=== PATIENT | male | born 1950 | race Caucasian/White ===

== ENCOUNTER 2019-02-07 15:12 | Outpatient (CLI) | payer MEDICARE, MEDICAID, SELFPAY ==
--- NOTE | 2019-02-07 15:44 | ECG_ITS ---
Measurements Intervals [place] Rate: 68 P: 35 IA: 134 QRS: 39 QRSD: 88 T: 46 QT: 411 QTc: 438 SINUS RHYTHM Compared to ECG 01/10/2019 13:47:10 No significant changes Electronically Signed On 02-07-2019 17:10:32 WELDING EQUIPMENT REPAIRER by Blanca Motley M.D. [id number]
[2019-02-07 16:09] LABS: Basophils % 0.3 %; Eosinophils # 0.1 10^3/uL (0.0-0.8); Hematocrit 40.9 % (42.0-52.0); Hemoglobin 12.9 g/dL (11.7-16.6); Lymphocytes % 33.2 %; Mean Corpuscular HGB Conc 31.5 g/dL (30.0-36.0); Mean Corpuscular Hemoglobin 28.7 pg (28.0-34.0); Mean Corpuscular Volume 90.9 fL (80-94); Mean Platelet Volume 9.5 fL (7.4-10.4); Monocytes # 0.6 10^3/uL (0.2-0.9); Monocytes % 9.9 %; Neutrophils # 3.3 10^3/uL (1.8-7.7); Neutrophils % 55.1 %; Nucleated Red Blood Cells % 0 %; Platelet Count 161 10^3/cmm (130-400); Red Cell Distribution Width 13.7 % (12.1-15.1); White Blood Count 5.9 10^3/uL (4.0-10.0)
[2019-02-07 16:52] LABS: Anion Gap 12.8 (5-19); Blood Urea Nitrogen 13 mg/dL (8-23); Calcium 9.6 mg/Dl (8.8-10.2); Carbon Dioxide 28 mmol/L (22-29); Chloride 101 mmol/L (98-107); Glomerular Filtration Rate 50.2 mL/min (90-130); Glucose 106 mg/dL (74-106); Potassium 4.8 mmol/L (3.5-5.1); Sodium 137 mmol/L (136-145)
== END 2019-02-07 15:13 | disposition home or self-care (01) ==
LOC: RAD 15:19
PROVIDERS: Family Provider Family Medicine; PCP Family Medicine; Visit Provider Specialist
DX: Z01.810 Encounter for preprocedural cardiovascular examination (principal); Z01.812 Encounter for preprocedural laboratory examination
CPT/HCPCS: 36415; 80048; 85025; 93005

== ENCOUNTER 2019-02-16 19:20 | Emergency (ER) | payer MEDICARE, MEDICAID, SELFPAY ==
[2019-02-16 19:25] VITALS: BP 149/75; PULSE 74; RESP 18; TEMP 36.6; O2SAT 97; BMI 32.8
[2019-02-16 19:49] VITALS: BP 163/86; PULSE 68; RESP 21; O2SAT 97
--- NOTE | 2019-02-16 19:53 | ED_ITS ---
Entered by Leigh Ann Khan, acting as scribe for Efrem Ibarra DO HPI - Chest Pain General: Chief Complaint: Chest Pain Stated Complaint: chest pains Time Seen by Provider: 02/16/19 19:55 Source: patient Mode of arrival: ambulatory History of Present Illness: HPI narrative: 69 y/o male presents to the ED with complaint of chest pain. Pt states he had a similar episode 2 days ago (Monday) while he was driving back from [place]. The pain subsided to a mild pain but then returned stronger today. He has had nausea and diarrhea. Pt states he recently had a carotid stent placed, in [facility]. MD complaint: chest pain Pertinent past history: other (CHF) Onset (ago): day(s) Timing of current episode: constant Prior episodes: Yes Onset: during exertion (mild) Associated symptoms: Reports nausea; Deny abdominal pain, fever(s), palpitations or vomiting Review of Systems Const: Denies: fever or chills Eyes: Denies: change in vision or blurry vision ENMT: Denies: painful swallowing, swelling of lips/tongue, bleeding gums, dental pain, Change in hearing, nose bleeds, post nasal drip or facial/sinus pain Card: Reports: chest pain, edema and swelling of feet/ankles (+1); Denies: palpitations or irregular heart rhythm Resp: Denies: productive cough, non-productive cough or wheezing GI: Reports: nausea and diarrhea; Denies: abdominal pain, vomiting, rectal pain, blood in stool or black tarry stool : Denies: difficulty urinating, painful urination, urinary frequency, urinary urgency or blood in urine Musc: Reports: extremity swelling (LE edema +1); Denies: neck pain, back pain, redness or joint warmth Skin/Breast: Denies: rash, itching or redness Neuro: Denies: headache, dizziness, vertigo, confusion or seizure-like activity Psych: Denies: anxiety, visual hallucinations or auditory hallucinations PFSH ED PFSH: Statuses (acute, chronic, etc) shown below reflect problem list status as previously entered and may not be historically accurate Medical History (Updated 02/16/19 @ 23:27 by Efrem Ibarra DO) Carotid stenosis, bilateral (Acute) Postop carotid endarterectomy surveillance, encounter for (Acute) Social History Smoking and tobacco status: former smoker Physical Exam Const: COMMON NORMALS: alert GENERAL APPEARANCE: well developed ORIENTATION/CONSCIOUSNESS: Yes awake, Yes oriented to person, Yes oriented to place and Yes oriented to time HENMT: COMMON NORMALS: normocephalic, external ears normal, external nose nor mal and moist oral mucous membranes HEAD & SCALP: normocephalic; no scalp tenderness FACE & SINUS: normal facial exam NOSE: external nose normal and no nasal discharge EXTERNAL EAR: Yes external ears normal MOUTH: tongue normal TEETH & GINGIVA: no abnormal tooth and associated gingiva THROAT: posterior oropharynx normal; no peritonsillar mass Eye: COMMON NORMALS: PERRL, EOMs intact bilaterally and conjunctivae normal EYELID: eyelids normal CONJUNCTIVA: Yes conjunctivae normal PUPIL: Yes PERRL Neck/C-Spine: COMMON NORMALS: full ROM GENERAL: No tracheal deviation CERVICAL SPINE: Yes normal cervical lordosis, No cervical spine tenderness, No step off deformity, No paracervical muscle tenderness and No paracervical muscle spasm Chest: CHEST: Yes symmetrical chest wall rise and Yes tenderness (epigastric) Resp: COMMON NORMALS: clear to auscultation bilaterally EFFORT & INSPECTION: No tachypneic, No respiratory distress, No retractions, No uses accessory muscles and No tracheal deviation AUSCULTATION: clear to auscultation bilaterally, no rhonchi, no wheezes and lung sounds not diminished Cardio: COMMON NORMALS: regular rate and regular rhythm RATE: regular rate RHYTHM: regular rhythm HEART SOUNDS: no murmurs PERIPHERAL PULSES: radial pulses present GI: INSPECTION: No abdominal distension AUSCULTATION: No hyperactive bowel sounds and No hypoactive bowel sounds PALPATION: No tender, No guarding and No rigid PERCUSSION: no dullness to percussion and no tympanic to percussion : COMMON NORMALS: Yes no CVA tenderness BLADDER/KIDNEY EXAM: Yes no CVA tenderness Back/Pelvis: COMMON NORMALS: no CVA tenderness PELVIS: Yes no pain with anterior-posterior compression and Yes no pain with lateral compression Extremity: LEFT LOWER EXTREMITY: Yes lower leg (1+ edema ) Neuro: SENSORIUM/ORIENTATION: Yes alert, Yes oriented to person, Yes oriented to place and Yes oriented to time Psych: COMMON NORMALS: mental status grossly normal and speech normal SPEECH: Yes normal speech Skin: COMMON NORMALS: no rashes or lesions noted GENERAL SKIN EXAM: no rashes or lesions noted Course ED course: 69-year-old male here frequently for similar complaints. His chest pain improved with GI cocktail. His EKG did not show acute ST changes x2 sets. His troponin did not change. His other laboratory was benign. With improvement in his symptoms, somewhat reproducibility of his pain on palpation of epigastrium, I am inclined to let him be discharged. Vital Signs: Vital signs: Vital Signs Temperature 97.9 F 02/16/19 19:25 Pulse Rate 87 02/16/19 23:54 Respiratory Rate 18 02/16/19 23:54 Blood Pressure 149/99 02/16/19 23:54 Pulse Oximetry 96 02/16/19 23:54 MDM - Chest Pain Lab Data: Labs: Lab Results 02/16/19 02/16/19 02/16/19 Range/Units 20:04 20:04 20:04 WBC 4.9 (4.0-10.0) 10^3/ uL RBC 4.17 (4.1-5.3) 10^6/u L Hgb 11.5 L (11.7-16.6) g/dL Hct 36.6 L (42.0-52.0) % MCV 87.8 (80-94) fL MCH 27.6 L (28.0-34.0) pg MCHC 31.4 (30.0-36.0) g/dL RDW 13.7 (12.1-15.1) % Plt Count 137 (130-400) 10^3/c mm MPV 9.4 (7.4-10.4) fL Neut % (Auto) 51.8 % Lymph % (Auto) 34.7 % [place] % (Auto) 11.9 % Eos % (Auto) 1.2 % Baso % (Auto) 0.2 % Neut # (Auto) 2.5 (1.8-7.7) 10^3/u L Lymph # (Auto) 1.7 (0.8-4.8) 10^3/u L [place] # (Auto) 0.6 (0.2-0.9) 10^3/u L Eos # (Auto) 0.1 (0.0-0.8) 10^3/u L Baso # (Auto) 0.0 (0.0-0.1) 10^3/u L Nucleated RBC % (a uto) 0 % Nucleated RBCs # 0.0 /100WBC Sodium 138 (136-145) mmol/L Potassium 3.8 (3.5-5.1) mmol/L Chloride 101 (98-107) mmol/L Carbon Dioxide 28 (22-29) mmol/L Anion Gap 12.8 (5-19) BUN 11 (8-23) mg/dL Creatinine 1.0 (0.7-1.2) mg/dL GFR Calculation 73.9 L (90-130) mL/min Glucose 116 H (74-106) mg/dL Calcium 8.9 (8.8-10.2) mg/Dl Total Bilirubin 1.7 H (0.15-1.2) mg/dL AST 16 (0-40) U/L ALT 7 (0-41) U/L Alkaline Phosphata se 69 (40-130) IU/L Troponin T Baselin e 9 (0-15) ng/mL Troponin T 120 Min [place] (0-15) ng/mL Delta Troponin T (0-10) ABS# NT-Pro-B Natriuret Pep 275 H (0-125) pg/mL Total Protein 6.5 L (6.6-8.7) g/dL Albumin 3.5 (3.5-5.2) g/dL Globulin 3.0 (1.3-4.6) g/dL 02/16/19 Range/Units 22:20 WBC (4.0-10.0) 10^3/ uL RBC (4.1-5.3) 10^6/u L Hgb (11.7-16.6) g/dL Hct (42.0-52.0) % MCV (80-94) fL MCH (28.0-34.0) pg MCHC (30.0-36.0) g/dL RDW (12.1-15.1) % Plt Count (130-400) 10^3/c mm MPV (7.4-10.4) fL Neut % (Auto) % Lymph % (Auto) % [place] % (Auto) % Eos % (Auto) % Baso % (Auto) % Neut # (Auto) (1.8-7.7) 10^3/u L Lymph # (Auto) (0.8-4.8) 10^3/u L [place] # (Auto) (0.2-0.9) 10^3/u L Eos # (Auto) (0.0-0.8) 10^3/u L Baso # (Auto) (0.0-0.1) 10^3/u L Nucleated RBC % (a uto) % Nucleated RBCs # /100WBC Sodium (136-145) mmol/L Potassium (3.5-5.1) mmol/L Chloride (98-107) mmol/L Carbon Dioxide (22-29) mmol/L Anion Gap (5-19) BUN (8-23) mg/dL Creatinine (0.7-1.2) mg/dL GFR Calculation (90-130) mL/min Glucose (74-106) mg/dL Calcium (8.8-10.2) mg/Dl Total Bilirubin (0.15-1.2) mg/dL AST (0-40) U/L ALT (0-41) U/L Alkaline Phosphata se (40-130) IU/L Troponin T Baselin e (0-15) ng/mL Troponin T 120 Min [place] 9.37 (0-15) ng/mL Delta Troponin T 0.37 (0-10) ABS# NT-Pro-B Natriuret Pep (0-125) pg/mL Total Protein (6.6-8.7) g/dL Albumin (3.5-5.2) g/dL Globulin (1.3-4.6) g/dL Discharge Plan Discharge Patient Disposition: Home, Self-Care Clinical Impression: Chest pain Qualifiers: Chest pain type: unspecified Qualified Code(s): R07.9 - Chest pain, unspecified Hypertension Qualifiers: Hypertension type: essential hypertension Qualified Code(s): I10 - Essential (primary) hypertension Condition: Stable Prescriptions: No Action tizanidine 4 mg capsule 4 mg PO Q8H RF: 0 buspirone 10 mg tablet 10 mg PO BID RF: 0 Eliquis 5 mg tablet 5 mg PO BID RF: 0 levothyroxine 100 mcg capsule 100 mcg PO DAILY RF: 0 tamsulosin 0.4 mg capsule 0.4 mg PO DAILY RF: 0 omeprazole 40 mg capsule,delayed release(DR/EC) 40 mg PO DAILY RF: 0 hydrocodone-acetaminophen 5-325 mg tablet 1 tab PO Q6H PRN (Reason: pain) RF: 0 Discharge Orders: Discharge Order (Routine); Ordered 02/16/19 Ordered By: Efrem Ibarra Referrals: Nelida Houser DO [Primary Care Provider] - Discharge Diet: Cardiac Discharge Activity: Increase activity as tolerated Patient Instructions: Chest Pain (ED) Activity Restrictions/Additional Instructions: Return for worsening chest pain. Take your blood pressure twice daily and report numbers to your physician next week. Return also for fever greater than 100, worsening shortness of breath, other concerning symptoms Discharge Date/Time: 02/16/19 23:56 Coding Level of Care Code ED Hand Mica Plate Layer for Chg Fwd The documentation recorded by the Bill holliday Ashley, accurately reflects the service I personally performed and the decisions made by Fred natarajan Jeremy John, DO Feb 16, 2019 19:20
--- NOTE | 2019-02-16 19:57 | XRR_ITS ---
PROCEDURE INFORMATION: Exam: XR Chest, 1 View Exam date and time: 02/16/2019 8:18 PM Age: 69 years old Clinical indication: Chest pain; Type not specified; Prior surgery; Surgery date: 6+ months; Surgery type: Stents TECHNIQUE: Imaging protocol: XR of the chest Views: 1 view. COMPARISON: CR Chest 1 [place] [id number] 01/10/2019 11:41 AM FINDINGS: Lungs: Unremarkable. No consolidation. Pleural space: Unremarkable. No pleural effusion. No pneumothorax. Heart/Mediastinum: There is cardiomegaly. Bones/joints: Unremarkable. XR/XR chest 1V portable [id number] IMPRESSION: No acute findings. Unchanged exam.
--- NOTE | 2019-02-16 19:58 | ECG_ITS ---
Measurements Intervals [place] Rate: 74 P: 34 SD: 130 QRS: 35 QRSD: 87 T: 55 QT: 397 QTc: 441 SINUS RHYTHM Compared to ECG 02/07/2019 15:40:57 No significant changes Electronically Signed On 02-17-2019 19:12:38 KETTLEMAN by Roxanna Temple M.D. [id number]
[2019-02-16] MEDS: aspirin 325 mg Tablet PO (20:06)
[2019-02-16 20:21] LABS: Basophils % 0.2 %; Eosinophils # 0.1 10^3/uL (0.0-0.8); Eosinophils % 1.2 %; Hematocrit 36.6 % (42.0-52.0); Hemoglobin 11.5 g/dL (11.7-16.6); Lymphocytes # 1.7 10^3/uL (0.8-4.8); Lymphocytes % 34.7 %; Mean Corpuscular HGB Conc 31.4 g/dL (30.0-36.0); Mean Corpuscular Hemoglobin 27.6 pg (28.0-34.0); Mean Corpuscular Volume 87.8 fL (80-94); Mean Platelet Volume 9.4 fL (7.4-10.4); Monocytes # 0.6 10^3/uL (0.2-0.9); Monocytes % 11.9 %; Neutrophils # 2.5 10^3/uL (1.8-7.7); Neutrophils % 51.8 %; Nucleated Red Blood Cells % 0 %; Platelet Count 137 10^3/cmm (130-400); Red Blood Count 4.17 10^6/uL (4.1-5.3); Red Cell Distribution Width 13.7 % (12.1-15.1); White Blood Count 4.9 10^3/uL (4.0-10.0)
[2019-02-16 20:48] LABS: Troponin(5th) Baseline 9 ng/mL (0-15)
[2019-02-16 20:55] LABS: Alanine Aminotransferase 7 U/L (0-41); Albumin Level 3.5 g/dL (3.5-5.2); Alkaline Phosphatase 69 IU/L (40-130); Anion Gap 12.8 (5-19); Aspartate Amino Transferase 16 U/L (0-40); Blood Urea Nitrogen 11 mg/dL (8-23); Calcium 8.9 mg/Dl (8.8-10.2); Carbon Dioxide 28 mmol/L (22-29); Chloride 101 mmol/L (98-107); Glomerular Filtration Rate 73.9 mL/min (90-130); Glucose 116 mg/dL (74-106); NT Pro B Type Natriuretic Pept 275 pg/mL (0-125); Potassium 3.8 mmol/L (3.5-5.1); Sodium 138 mmol/L (136-145); Total Bilirubin 1.7 mg/dL (0.15-1.2); Total Protein 6.5 g/dL (6.6-8.7)
[2019-02-16 21:04] VITALS: BP 198/81; PULSE 58; RESP 19; O2SAT 98
[2019-02-16] MEDS: hyDRALAzine 20 mg/mL INJ 1 mL 10 MG IVP (21:42)
[2019-02-16] MEDS: LORazepam 2 mg/mL INJ 1 mL 1 MG IVP (21:42)
[2019-02-16] MEDS: amlodipine 10 mg Tablet PO (21:42)
--- NOTE | 2019-02-16 21:58 | ECG_ITS ---
Measurements Intervals [place] Rate: 74 P: 44 [place]: 131 QRS: 48 QRSD: 93 T: 61 QT: 403 QTc: 449 SINUS RHYTHM Compared to ECG 02/07/2019 15:40:57 No significant changes Electronically Signed On 02-17-2019 19:21:25 OPERATOR WE[employer] LOCATING RADAR by Roxanna Temple M.D. [id number]
[2019-02-16 22:53] LABS: Troponin 5 2HR 9.37 ng/mL (0-15); Troponin 5 2HR Delta 0.37 ABS# (0-10)
[2019-02-16 22:57] VITALS: BP 165/95; PULSE 79; RESP 17; O2SAT 98
[2019-02-16 23:54] VITALS: BP 149/99; PULSE 87; RESP 18; O2SAT 96
== END 2019-02-16 23:56 | disposition home or self-care (01) ==
PROVIDERS: Emergency Provider Emergency Medicine; Family Provider Family Medicine; PCP Family Medicine
DX: R07.9 Chest pain, unspecified (principal); I10 Essential (primary) hypertension; Z87.891 Personal history of nicotine dependence
CPT/HCPCS: 71045; 80053; 83880; 84484; 85025; 93005; 96374; 96375; 99282; J0360; J2060

== ENCOUNTER 2019-02-19 13:32 | Observation (INO) | payer MEDICARE, MEDICAID, SELFPAY ==
[2019-02-18 13:33] VITALS: BMI 32.8
[2019-02-19] VITALS (29 sets, daily range): BP systolic 113–220; BP diastolic 48–97; PULSE 58–102; RESP 15–26; TEMP 36.2–36.7; O2SAT 94–100
[2019-02-19] MEDS: sodium chloride 0.9% 1,000 ML 30 ML IV (07:18)
--- NOTE | 2019-02-19 07:33 | ANES.PREANES ---
Pre-Anesthetic Assessment Pre-Anesthetic Assessment: Height/Weight: Height 1.7 m Weight 95.254 kg Temp Pulse Resp BP Pulse Ox 97.2 F L 68 18 181/86 97 02/19/19 07:01 02/19/19 07:01 02/19/19 07:01 02/19/19 07:01 02/19/19 07:01 Preop Diagnosis: Hoarseness Proposed Procedure: Operation Date: 02/19/19 08:00 Proposed Procedures p Direct Laryngoscopy/with true vocal cord injection(Not Applicable) - John Jackson MD Familial anesthetic complications: With patient's last vocal cord injection, he exerienced post op SOB and requiring him to go back to surgery for further injections. he stayed over night.. 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 : : None reported Hepatic: Hepatic: None reported GI: GI: Hiatus hernia Metabolic: Metabolic: Thyroid Musc/skel: Musc/skel: None reported Neuropsych: Neuropsych: TIA Comments: TIA last one > 1 year ago Anesthetic Plan: ASA status: III Anesthesia: General Risk of > 500 ml blood loss (7ml/kg in children): No Meds/Allergies Current Medications: Current Medications Generic Name Dose Route Start Last Admin Trade Name Freq PRN Reason Stop Dose Admin Sodium Chloride 1,000 mls @ 30 ml s/hr 02/19/19 07:00 02/19/19 07:18 Sodium Chloride 0.9% IV 02/20/19 06:59 30 mls/hr .Q24H CHAYO Administration PFSH Anesthesia PFSH: Medical History (Updated 02/16/19 @ 23:27 by Efrem Ibarra DO) Carotid stenosis, bilateral (Acute) Postop carotid endarterectomy surveillance, encounter for (Acute) Social History Smoking and tobacco status: former smoker Data Anesthesia Cardiac Studies: No Data to Display
--- NOTE | 2019-02-19 08:44 | PM.HPUD ---
H&P update H&P Update: DATE OF SURGERY/PROCEDURE: 02/19/19 DATE H&P PERFORMED: 02/07/19 H&P UPDATE INFORMATION: H&P completed within last 30 days and No changes to prior documentation PREOP DIAGNOSIS: Left true vocal cord paralysis; hoarseness PRIMARY INDICATION FOR PROCEDURE: Hoarseness secondary to left true vocal cord paralysis PLANNED PROCEDURE: Operation Date: 02/19/19 08:00 Proposed Procedures p Direct Laryngoscopy/with true vocal cord injection(Not Applicable) - John Jackson MD Full H&P Medications/Allergies: Current Medications: Current Medications Generic Name Dose Route Start Last Admin Trade Name Freq PRN Reason Stop Dose Admin Sodium Chloride 1,000 mls @ 30 ml s/hr 02/19/19 07:00 02/19/19 07:18 Sodium Chloride 0.9% IV 02/20/19 06:59 30 mls/hr .Q24H CHAYO Administration Perinent History: Medical/Surgical History: Medical History (Updated 02/16/19 @ 23:27 by Efrem Ibarra DO) Carotid stenosis, bilateral (Acute) Postop carotid endarterectomy surveillance, encounter for (Acute) Family History: Family History (Updated 02/11/19 @ 13:27 by Caryn Walker LPN) Other CAD (coronary artery disease) Cancer Diabetes Social History: Social History Smoking and tobacco status: former smoker
[2019-02-19] MEDS: triamcinolone 40 mg/mL SDV IM (10:11)
--- NOTE | 2019-02-19 10:41 | PM.OP ---
Operative Report Date of procedure: 02/19/19 Preop Diagnosis: Left true vocal paralysis with hoarseness Post-op diagnosis: same Post-op Findings: Same Procedure Done: Microdirect Laryngoscompy with injection laryngoplasty of left true vocal cord Implants: Prolaryn Hydroxyappatite injectable implant Specimens removed/disposition: None Pathology: none sent Surgeon: John Jackson Certified Medical Records Coder: Sarbjit Meyer Anesthesia: general Estimated blood loss (mL): 1 IV fluids (mL): 500 Complications: Post op stridor Findings: Left true vocal cord paralysis Condition: stable Brief History: 69 yo wmwith a h/o left true vocal cord paralysis and hoarseness who desires repeat injection laryngoplasty Procedure: The patient was identified in the preoperative holding area and was taken to the operating room where he was placed on the operating table in the supine position. Anesthesia was obtained with general endotracheal anesthesia and the table turned 90 degrees to the patient's left. The patient was then prepped and draped in the usual sterile fashion. A moist Ray-Joe was placed on the patient's maxillary gingiva and a surgical laryngoscope was advanced down the right oral cavity gutter under direct vision until the larynx came into view. The patient was placed on suspension and the 0 degree Hutchinson paige surgical telescope with the attached video camera system was used to inspect the larynx with the findings noted above. At this point the Prolaryn hydroxyapatite injectable implant was injected into the vocalis muscle lateral to the vocal process of the arytenoid on the left. A total of 0.5 mL's of the injectable implant was injected into the vocalis muscle. At this point, the endotracheal tube was removed and was replaced with an 8.5 endotracheal tube. 5 minutes were allowed to pass, and the endotracheal tube was partially removed and the balloon was inflated at the level of the vocal cords. At this point, the endotracheal tube was reinserted, and the patient underwent a reversal of anesthesia and was extubated. The patient developed inspiratory stridor, and was then reintubated with an 8 oh tube. The larynx was reinspected and he easily admitted an 8-0 endotracheal tube. At this point the patient's anesthesia was reversed, and he was extubated and had no stridor on extubation. He was taken to the recovery room in stable condition and there were no operative or anesthetic complications.
[2019-02-19] MEDS: midazolam 1 mg/mL INJ 2 mL IVP (10:52)
--- NOTE | 2019-02-19 12:27 | SUR.PHASEI ---
1033 PT TO PACU AWAKE ALERT UP IN SITTING POSTITION, PT RESP SHALLOW RAPID, PT NODS HEAD YES TO QUESTIONS (IS IT HARD TO BREATHE?) (DO YOU FEEL WEAK?) PT HAS SOME AUDIBLE INSP STRIDOR NOTED DR CANTRELL AND MECHANICAL INTEGRITY ENGINEER WILL AT BEDSIDE PT BP ELEVATED , PT ANXIOUS, SEE IV LABETOLOL GIVE AT BEDSIDE BY MECHANICAL INTEGRITY ENGINEER FOR ELEVATED BP. 1040 PT REMAINS WEAK BIPAP PLACEDON PT WITH RESP HERE TO TITRATE O2 AND SETTINGS. 1052 PT ANXIOUS BP IS BETTER BUT PT STILL HAVING STRIDOR WITH INSPIRATION SEE VERSED GIVEN ORDERED. 1100 DR CUNNINGHAM AT BEDSIDE PT RESP EVENA AND UNLABORED ON BI PAP NOW PT SLEEPING, PT TO GO TO ICU NOT THE FLOOR [id number] DUMONT CALLED AND UPDATED PT STILL ON BIPAP BUT ORDER FOR STATUS NEEDED VERBAL ORDER TAKEN PER PHONEL 1143 PT ALERT REQUESTS SOMEHTING TO DRINK, PT ON RA TRIAL, NO DISTRESS NOW OR STRIDOR PT TAKING SMALL ICE CHIPS SLOWLY, FAMILY UPDATED THEY ARE NOW IN WR, THE HAD WENT HOME RUSSELL. 1151 PT NOW IN HOLDING WAITING FOR ICU BED. 1215 PT ALERT USING PAPER AND PEN PT IS ON VOICE REST, PT TO OPS 12 FOR HOLDING FAMILY IN TO ROOM TO SEE PT
--- NOTE | 2019-02-19 12:43 | SUR.PHASEI ---
PT IS ALERT STABLE IN NO OBVIOUS DISTRESS PT TAKING ICE CHIPS AND WATCHING TV, DR DUMONT'S OFFICE CALLED AND NURSE NOTIFIED DR DUMONT OF PT CONDITION AND ASKED IF HE STILL WANTED PT TO GO TO ICU, DR DUMONT'S PHONE RESPONSE TO THE OFFICE NURSE WAS YES. PT STILL IN HOLDING WAITING FOR BED.
--- NOTE | 2019-02-19 13:46 | SUR.PHASEI ---
1324 PT AWAKE ALERT EATING DAMONO, PT AND FAMILY TO ICU 11 PT ALERT WALKED TO BED WITH NO C/O
[2019-02-19] MEDS: tizanidine 4 mg Tablet PO ×2 (14:35→21:58)
[2019-02-19] MEDS: lactated ringers 1,000 ML 125 ML IV ×2 (14:35→23:06)
--- NOTE | 2019-02-19 14:44 | PM.PACU ---
PACU note PACU note: Patient stridorous in pacu, difficulty breathing. Placed on bipap. improved and satting well with no supplement O2 or respiratory distress when brought to ICU Post-Anesthesia Exam: awake and vital signs stable Disposition: other (TO ICU)
[2019-02-19] MEDS: docusate sodium 100 mg Capsule PO (18:04)
[2019-02-19] MEDS: apixaban 5 mg Tablet PO (18:04)
[2019-02-19] MEDS: BuSPIRONE 10 mg Tablet PO (18:04)
--- NOTE | 2019-02-19 21:19 | PM.PN ---
Subjective Subjective: Interval history: 69 yo wm who is night of surgery s/p Microdirect laryngoscopy with injection laryngoplasty of left true vocal cord for left true vocal cord paralysis and hoarseness. The patient's post op course was complicated by post operative stridor. The patient was transferred to the ICU on BiPap which has subsequently been discontinued. The patient reports that he is doing well, and has no shortness of breath or stridor. He has been able to take po liquids well. He is o/w without c/o. Vitals/I&O/Wt Last Vital Signs Temp 97.8 F 02/19/19 20:00 Pulse 65 02/19/19 20:40 Resp 18 02/19/19 20:00 BP 128/61 02/19/19 20:00 Pulse Ox 99 02/19/19 20:46 02/19/19 02/19/19 02/19/19 06:59 14:59 22:59 Intake Total 50 / 50 480 / 530 Output Total 301 / 301 400 / 701 Balance -251 / -251 80 / -171 Weight last 48 hrs Weight 95.254 kg Physical Exam Const: COMMON NORMALS: no apparent distress and oriented x3 GENERAL APPEARANCE: cooperative and comfortable HENMT: COMMON NORMALS: normocephalic, head/scalp atraumatic and external nose normal HEAD & SCALP: normocephalic and atraumatic FACE & SINUS: normal facial exam NOSE: external nose normal Eye: COMMON NORMALS: conjunctivae normal CONJUNCTIVA: Yes conjunctivae normal Neck/C-Spine: COMMON NORMALS: full ROM, no lymphadenopathy and thyroid normal GENERAL: Yes normal visual inspection and Yes trachea midline THYROID: thyroid normal Lymph: LYMPHATIC: no lymphadenopathy noted Chest: COMMONS NORMALS: inspection of chest normal and palpation of chest normal Resp: COMMON NORMALS: normal respiratory effort and clear to auscultation bilaterally AUSCULTATION: clear to auscultation bilaterally Cardio: COMMON NORMALS: regular rate and regular rhythm RATE: regular rate RHYTHM: regular rhythm GI: COMMON NORMALS: normal to inspection, nondistended, normoactive bowel sounds Extremity: COMMON NORMALS: normal to inspection Neuro: COMMON NORMALS: oriented x3 and moves all extremities Psych: COMMON NORMALS: mental status grossly normal Skin: COMMON NORMALS: no rashes or lesions noted GENERAL SKIN EXAM: no rashes or lesions noted A&P Additional A&P Information Impression: 69 yo wm with a h/o left true vocal cord paralysis and severe hoarseness who is night of surgery s/p Microdirect laryngoscopy with injection laryngoplasty of left true vocal cord. Who is now doing well. His immediate post op course was complicated by inspiratory stridor, but this has since resolved. Plan: ICU observation overnight Advance to regular diet Anticipate discharge in the morning Attestations Medical Necessity Statement*: The patient required overnight observation of his airway Coding Level of Care Code Acute Real Estate Sales Supervisor for Carl Sanz
[2019-02-19] MEDS: HYDROcodone-acetaminophen 5-325 mg Tablet 1 TAB PO (22:57)
[2019-02-20] VITALS: BP 153/62; PULSE 66; RESP 18; O2SAT 96
[2019-02-20 02:00] VITALS: BP 128/56; PULSE 71; RESP 21; O2SAT 97
[2019-02-20 04:00] VITALS: BP 137/63; PULSE 59; RESP 24; O2SAT 97
[2019-02-20] MEDS: HYDROcodone-acetaminophen 5-325 mg Tablet 1 TAB PO (05:25)
[2019-02-20] MEDS: tizanidine 4 mg Tablet PO (05:25)
--- NOTE | 2019-02-20 05:39 | P.PN_ITS ---
Subjective Subjective: Interval history: 69 yo wm with a h/o left true vocal paralysis who is POD #1 s/p Microdirect Laryngoscopy with left true vocal cord injection laryngoplasty. The patient's post op course was complicated by post op stridor. He was observed overnight in the ICU and is now doing well. He reports that he is taking po well, and denies any noted shortness of breath. Vitals/I&O/Wt Last Vital Signs Temp 97.8 F 02/19/19 20:00 Pulse 59 L 02/20/19 04:00 Resp 24 H 02/20/19 04:00 BP 137/63 02/20/19 04:00 Pulse Ox 97 02/20/19 04:00 02/19/19 02/19/19 02/20/19 14:59 22:59 06:59 Intake Total 50 / 50 480 / 530 1000 / 1530 Output Total 301 / 301 400 / 701 200 / 901 Balance -251 / -251 80 / -171 800 / 629 Weight last 48 hrs Weight 95.254 kg Physical Exam Const: COMMON NORMALS: no apparent distress, oriented x3 and well nourished GENERAL APPEARANCE: cooperative and well developed ORIENTATION/CONSCIOUSNESS: Yes oriented to person, Yes oriented to place and Yes oriented to time HENMT: COMMON NORMALS: normocephalic, head/scalp atraumatic, external ears normal and external nose normal HEAD & SCALP: normocephalic and atraumatic FACE & SINUS: normal facial exam and face symmetric NOSE: external nose normal EXTERNAL EAR: Yes external ears normal Eye: COMMON NORMALS: conjunctivae normal CONJUNCTIVA: Yes conjunctivae normal Neck/C-Spine: COMMON NORMALS: no lymphadenopathy Lymph: LYMPHATIC: no lymphadenopathy noted Chest: COMMONS NORMALS: inspection of chest normal and palpation of chest normal Resp: COMMON NORMALS: clear to auscultation bilaterally AUSCULTATION: clear to auscultation bilaterally Cardio: COMMON NORMALS: regular rate and regular rhythm RATE: regular rate RHYTHM: regular rhythm GI: COMMON NORMALS: normal to inspection, nondistended, normoactive bowel sounds Extremity: COMMON NORMALS: normal to inspection Neuro: COMMON NORMALS: oriented x3 and moves all extremities SENSORIUM/ORIENTATION: Yes oriented to person, Yes oriented to place and Yes oriented to time Psych: COMMON NORMALS: mental status grossly normal Skin: COMMON NORMALS: no rashes or lesions noted and skin turgor normal GENERAL SKIN EXAM: no rashes or lesions noted and turgor normal A&P Assessment and plan (1) Vocal cord paralysis, unilateral complete: Now doing well s/p Microdirect laryngoscopy with injection laryngoplasty of the left true vocal cord Status: Acute Code(s): J38.01 - Paralysis of vocal cords and larynx, unilateral Additional A&P Information 1) The patient is to be discharged to home 2) Regular diet 3) Resume all preop medications 4) Voice rest x one week 5) F/U in Dr. Jackson's office in one week 6) Notify Dr. Jackson for any problems Attestations Medical Necessity Statement*: The patient was observed overnight in the ICU because of post op stidor/airway observation Coding Level of Care Code Acute Medical Territory Manager for Carl Fwd Exam Problem Focused Diagnoses Vocal cord paralysis, unilateral complete J38.01
[2019-02-20 06:00] VITALS: BP 117/56; PULSE 58; RESP 21; TEMP 36.6; O2SAT 97
[2019-02-20 07:57] VITALS: BP 104/44; PULSE 66; RESP 15; TEMP 36.6; O2SAT 98
[2019-02-20 08:01] VITALS: PULSE 65; RESP 15; TEMP 36.6; O2SAT 98
[2019-02-20] MEDS: pantoprazole DR 40 mg Tablet PO (08:39)
[2019-02-20] MEDS: apixaban 5 mg Tablet PO (08:40)
[2019-02-20] MEDS: BuSPIRONE 10 mg Tablet PO (08:40)
[2019-02-20] MEDS: tamsulosin 0.4 mg Capsule PO (08:40)
[2019-02-20] MEDS: levothyroxine 100 mcg Tablet PO (08:40)
--- NOTE | 2019-02-20 08:47 | PC.NURSE ---
Discharge instructions provided and discussed. Reiterated resting his voice Follow-up appts, signs/symptoms/concerns to janina Kurtz with, Medications already receive today discussed. No further questions. Pt awaiting arrival of family member with clothing..
--- NOTE | 2019-02-20 09:53 | PC.NURSE ---
Pt now sitting in ICU waiting room fro his ride. Pt has been discharged.
== END 2019-02-20 09:45 | disposition home or self-care (01) ==
LOC: ICU 13:33
PROVIDERS: Admitting Provider Specialist; Family Provider Family Medicine; PCP Family Medicine; Visit Provider Specialist
PROC: 0CJS8ZZ Inspection of Larynx, Via Natural or Artificial Opening Endoscopic (ICD-10-PCS; CPT 31571; principal; 2019-02-19 08:00)
DX: J38.01 Paralysis of vocal cords and larynx, unilateral (principal); R49.0 Dysphonia; Z82.49 Family history of ischemic heart disease and other diseases of the circulatory system; Z83.3 Family history of diabetes mellitus; I25.10 Atherosclerotic heart disease of native coronary artery without angina pectoris; I11.0 Hypertensive heart disease with heart failure; I50.9 Heart failure, unspecified; Z95.5 Presence of coronary angioplasty implant and graft; Z86.718 Personal history of other venous thrombosis and embolism; Z86.711 Personal history of pulmonary embolism; Z87.891 Personal history of nicotine dependence
CPT/HCPCS: 31571; 12345; 94660; 94664; 96361; 96372; G0378; J0330; J0690; J2250; J2704; J2710; J3010; J3301; J3490; J7030

== ENCOUNTER → 2019-02-28 11:09 | Outpatient (BNVA) | payer MEDICARE, MEDICAID, SELFPAY | PROVIDERS: Family Provider Family Medicine; PCP Family Medicine; Visit Provider Orthopaedic Surgery | DX: Z09 Encounter for follow-up examination after completed treatment for conditions other than malignant neoplasm (principal); Z96.652 Presence of left artificial knee joint | CPT/HCPCS: 73560; 73565 ==

== ENCOUNTER 2019-03-11 09:33 | Outpatient (RCR) | payer MEDICARE, MEDICAID, SELFPAY | END 2019-04-06 23:59 | disposition home or self-care (01) | LOC: SST 09:33 | PROVIDERS: Family Provider Family Medicine; PCP Family Medicine; Referring Provider Specialist; Visit Provider Specialist | DX: J38.01 Paralysis of vocal cords and larynx, unilateral (principal); R49.8 Other voice and resonance disorders | CPT/HCPCS: 92507; 92524 ==

== ENCOUNTER 2019-03-24 18:02 | Emergency (ER) | payer MEDICARE, MEDICAID, SELFPAY ==
[2019-03-24 18:10] VITALS: BP 181/77; PULSE 82; RESP 16; TEMP 36.4; O2SAT 98; BMI 33.0
--- NOTE | 2019-03-24 18:27 | ED_ITS ---
Entered by Velia Curry, acting as scribe for Leo Velazquez MD, [facility] Mar 24, 2019 18:02 HPI - Chest Pain General: Chief Complaint: Chest Pain Stated Complaint: l facial numb Time Seen by Provider: 03/24/19 18:27 Source: patient and RN notes reviewed Mode of arrival: ambulatory Limitations: no limitations History of Present Illness: HPI narrative: 69 yo male presents to ED with complaints of chest pain. He said the chest pain began 2 nights ago. He said that he decided if the pain was not any better today then he would come in to the ED. He said he has weakness in his L arm. 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 He said this began last year. He has had a carotid endarterectomy about 6 months ago. He had complained of neck pain and his vascular surgeon wants a carotid Doppler done. MD complaint: chest pain Onset (ago): day(s) (2) Timing of current episode: episodic Prior episodes: Yes Onset: during rest and during exertion Pain location: substernal Pain radiation: left arm and neck (L side) Severity: mild Quality: aching Relieving factors: nothing Exacerbating factors: nothing Context: other (blocked R carotid artery) Associated symptoms: Reports other (L arm numbness and weakness); Deny abdominal pain, dyspnea, fever(s), nausea, palpitations or vomiting Treatment prior to arrival: none Risk Factors: Thoracic aortic dissection risk factors: none Review of Systems General: Reports: 10 or more systems reviewed and unremarkable except in HPI and below Const: Denies: fever, chills or body aches Eyes: Reports: blind spots; Denies: change in vision or blurry vision ENMT: Denies: throat pain, enlarged tonsils, painful swallowing, hoarseness, mouth pain or swelling of lips/tongue Card: Reports: chest pain; Denies: palpitations, irregular heart rhythm, edema or swelling of feet/ankles Resp: Denies: shortness of breath, productive cough or non-productive cough GI: Denies: abdominal pain, nausea or vomiting : Denies: flank pain, painful urination, urinary frequency, urinary urgency or urinary hesitancy Musc: Denies: neck pain, back pain or extremity swelling Skin/Breast: Denies: rash, itching or redness Neuro: Denies: headache, numbness in extremities or weakness in extremities Endo: Denies: excessive urination, excessive thirst or tired all the time PFSH ED PFSH: Medical History (Updated 03/24/19 @ 21:23 by Leo Velazquez MD, [facility]) Carotid stenosis, bilateral History of left common carotid artery stent placement Postop carotid endarterectomy surveillance, encounter for Stridor Vocal cord paralysis, unilateral complete Social History Smoking and tobacco status: former smoker Physical Exam Const: COMMON NORMALS: no apparent distress, average body habitus, oriented x3, no limitations, healthy appearing, alert and well nourished HENMT: COMMON NORMALS: normocephalic, head/scalp atraumatic and moist oral mucous membranes HEAD & SCALP: normocephalic and atraumatic Eye: COMMON NORMALS: PERRL, EOMs intact bilaterally, conjunctivae normal and no scleral icterus CONJUNCTIVA: Yes conjunctivae normal PUPIL: Yes PERRL Neck/C-Spine: COMMON NORMALS: full ROM, supple, no meningeal signs, no JVD and no carotid bruits Chest: COMMONS NORMALS: inspection of chest normal and palpation of chest normal Resp: COMMON NORMALS: normal respiratory effort, no retractions, no use of accessory muscles, clear to auscultation bilaterally and percussion normal AUSCULTATION: clear to auscultation bilaterally PERCUSSION: percussion normal Cardio: COMMON NORMALS: no JVD, regular rate, regular rhythm, S1 normal heart sound, S2 normal heart sound, no gallops, no clicks, no murmurs, no rub and peripheral pulses 2+ throughout RATE: regular rate RHYTHM: regular rhythm HEART SOUNDS: S1 normal and S2 normal BRUITS: no carotid bruits PERIPHERAL PULSES: pulses 2+ throughout GI: COMMON NORMALS: normal to inspection, nondistended, normoactive bowel sounds, soft to palpation, non-tender, no hepatosplenomegaly, no masses and no bruits PALPATION: Yes soft and Yes no hepatosplenomegaly : COMMON NORMALS: Yes no CVA tenderness BLADDER/KIDNEY EXAM: Yes no CVA tenderness Back/Pelvis: COMMON NORMALS: no CVA tenderness Extremity: COMMON NORMALS: normal to inspection, full ROM, normal capillary refill, no calf tenderness and no pedal edema Neuro: COMMON NORMALS: oriented x3 SENSORIUM/ORIENTATION: Yes alert MENINGEAL SIGNS: Yes no meningeal signs Skin: COMMON NORMALS: no rashes or lesions noted, no wounds, skin turgor normal, no jaundice, no petechiae and no mottling GENERAL SKIN EXAM: no rashes or lesions noted and turgor normal Course Reevaluation(s): Reevaluation #1: Discussed his lab and imaging findings with him. Carotid Doppler with about a 50% stenosis, not significant stenosis requiring urgent intervention. We will discharge him home to follow-up with his primary care provider and vascular surgeon. He voiced understanding and is in agreement with the plan Time: 21:19 Vital Signs: Vital signs: Vital Signs Temperature 97.6 F 03/24/19 21:42 Pulse Rate 71 03/24/19 21:42 Respiratory Rate 14 03/24/19 21:42 Blood Pressure 166/80 03/24/19 21:42 Pulse Oximetry 97 03/24/19 21:42 MDM - Chest Pain MDM Narrative: Medical decision making narrative: 69-year-old male with carotid artery disease status post carotid endarterectomy. He has seen his vascular surgeon and still has some neck pain so he had ordered carotid duplex. In the ED today carotid duplex was not significant. Other evaluations were unremarkable. I am therefore discharging him home to follow-up with his primary care and vascular surgeon. Medical Records: Attestation: I reviewed the patient's medical records. Lab Data: Attestation: I reviewed the patient's lab results. Labs: Lab Results 03/24/19 03/24/19 03/24/19 Range/Units 18:50 18:50 18:50 WBC 5.3 (4.0-10.0) 10^3/ uL RBC 4.49 (4.1-5.3) 10^6/u L Hgb 12.3 (11.7-16.6) g/dL Hct 38.9 L (42.0-52.0) % MCV 86.6 (80-94) fL MCH 27.4 L (28.0-34.0) pg MCHC 31.6 (30.0-36.0) g/dL RDW 13.7 (12.1-15.1) % Plt Count 144 (130-400) 10^3/c mm MPV 9.5 (7.4-10.4) fL Neut % (Auto) 58.6 % Lymph % (Auto) 28.8 % Elbert % (Auto) 11.5 % Eos % (Auto) 0.9 % Baso % (Auto) 0.0 % Neut # (Auto) 3.1 (1.8-7.7) 10^3/u L Lymph # (Auto) 1.5 (0.8-4.8) 10^3/u L Elbert # (Auto) 0.6 (0.2-0.9) 10^3/u L Eos # (Auto) 0.1 (0.0-0.8) 10^3/u L Baso # (Auto) 0.0 (0.0-0.1) 10^3/u L Nucleated RBC % (a uto) 0 % Nucleated RBCs # 0.0 /100WBC Sodium 140 (136-145) mmol/L Potassium 3.9 (3.5-5.1) mmol/L Chloride 101 (98-107) mmol/L Carbon Dioxide 28 (22-29) mmol/L Anion Gap 14.9 (5-19) BUN 16 (8-23) mg/dL Creatinine 1.3 H (0.7-1.2) mg/dL GFR Calculation 54.6 L (90-130) mL/min Glucose 108 (65-115) mg/dL Calcium 9.3 (8.5-10.5) mg/dL Total Bilirubin 1.8 H (0.15-1.2) mg/dL AST 16 (0-40) U/L ALT 8 (0-41) U/L Alkaline Phosphata se 75 (40-130) IU/L Troponin T Baselin e 10 (0-15) ng/mL Troponin T 120 Min cahto (0-15) ng/mL Delta Troponin T (0-10) ABS# Total Protein 6.9 (6.6-8.7) g/dL Albumin 3.9 (3.5-5.2) g/dL Globulin 3.0 (1.3-4.6) g/dL 03/24/19 Range/Units 20:55 WBC (4.0-10.0) 10^3/ uL RBC (4.1-5.3) 10^6/u L Hgb (11.7-16.6) g/dL Hct (42.0-52.0) % MCV (80-94) fL MCH (28.0-34.0) pg MCHC (30.0-36.0) g/dL RDW (12.1-15.1) % Plt Count (130-400) 10^3/c mm MPV (7.4-10.4) fL Neut % (Auto) % Lymph % (Auto) % Elbert % (Auto) % Eos % (Auto) % Baso % (Auto) % Neut # (Auto) (1.8-7.7) 10^3/u L Lymph # (Auto) (0.8-4.8) 10^3/u L Elbert # (Auto) (0.2-0.9) 10^3/u L Eos # (Auto) (0.0-0.8) 10^3/u L Baso # (Auto) (0.0-0.1) 10^3/u L Nucleated RBC % (a uto) % Nucleated RBCs # /100WBC Sodium (136-145) mmol/L Potassium (3.5-5.1) mmol/L Chloride (98-107) mmol/L Carbon Dioxide (22-29) mmol/L Anion Gap (5-19) BUN (8-23) mg/dL Creatinine (0.7-1.2) mg/dL GFR Calculation (90-130) mL/min Glucose (65-115) mg/dL Calcium (8.5-10.5) mg/dL Total Bilirubin (0.15-1.2) mg/dL AST (0-40) U/L ALT (0-41) U/L Alkaline Phosphata se (40-130) IU/L Troponin T Baselin e (0-15) ng/mL Troponin T 120 Min cahto 10.31 (0-15) ng/mL Delta Troponin T 0.31 (0-10) ABS# Total Protein (6.6-8.7) g/dL Albumin (3.5-5.2) g/dL Globulin (1.3-4.6) g/dL Imaging Data^: CT Head: Radiologist's impression: [facility] [address] [place] [address] CT Scan Report Signed Patient: Robert Brooks SRUnit #: [id number] : 1950Acct#:[id number] Age/Sex: 69 / MADM Date: 03/24/19 Loc: ERRoom/Bed: Attending Dr: Ordering Provider/Ordering MD: Leo Velazquez MD, [facility] Date of Service: 03/24/19 Procedure(s): CT head wo con* [id number] Accession Number(s): [id number] Report Number: [id number] PROCEDURE INFORMATION: Exam: CT Head Without Contrast Exam date and time: 03/24/2019 6:51 PM Age: 69 years old Clinical indication: Weakness, extremity; Left; Additional info: Left sided weakness. TECHNIQUE: Imaging protocol: Computed tomography of the head without contrast. Total DLP: 802.28 mGy-cm Radiation optimization: All CT scans at this facility use at least one of these dose optimization techniques: automated exposure control; mA and/or kV adjustment per patient size (includes targeted exams where dose is matched to clinical indication); or iterative reconstruction. COMPARISON: CT head wo con* [id number] 08/19/2018 10:59 PM FINDINGS: Brain: Mild atrophy and mild white matter chronic microvascular changes are noted. No hemorrhage or CT evidence of acute infarction is seen. Ventricles: Normal. No ventriculomegaly. Bones/joints: Unremarkable. No acute fracture. Sinuses: Visualized sinuses are unremarkable. No fluid levels. Mastoid air cells: Visualized mastoid air cells are well aerated. Soft tissues: Unremarkable. CT/CT head wo con* [id number] IMPRESSION: No acute intracranial abnormality. Radiation Dose CTDIVOL = (mGy): DLP = 802.28 (mGy-cm) Dictated By:Alex Barone MD Signed By:Alex Barone MDSigned Date/Time:03/24/192047 DD/ Discharge Plan Discharge Patient Disposition: Home, Self-Care Clinical Impression: Carotid artery disease without cerebral infarction Chest pain Qualifiers: Chest pain type: other chest pain Qualified Code(s): R07.89 - Other chest pain Condition: Stable Prescriptions: Continued tizanidine 4 mg capsule 4 mg PO Q8H RF: 0 buspirone 10 mg tablet 10 mg PO BID RF: 0 Eliquis 5 mg tablet 5 mg PO BID RF: 0 levothyroxine 100 mcg capsule 50 mcg PO DAILY RF: 0 tamsulosin 0.4 mg capsule 0.4 mg PO DAILY RF: 0 omeprazole 40 mg capsule,delayed release(DR/EC) 40 mg PO DAILY RF: 0 hydrocodone-acetaminophen 5-325 mg tablet 1 tab PO Q6H PRN (Reason: pain) RF: 0 furosemide 20 mg Tablet 20 mg PO DAILY RF: 0 Lexapro 10 mg Tablet 10 mg PO DAILY RF: 0 Discharge Orders: Discharge Order (Routine); Ordered 03/24/19 Ordered By: Leo Velazquez Referrals: Wolf Brand MD [Physician] - 1-3 days Nelida Houser DO [Primary Care Provider] - 4-7 days Patient Instructions: Chest Pain (ED), Carotid Artery Disease (GEN) Activity Restrictions/Additional Instructions: Return for any new or worsening symptoms. Follow-up with your primary care provider within 1 week. Follow-up with Dr. Brand within 3 days. Continue home medications. Discharge Date/Time: 03/24/19 21:37 Coding Level of Care Code ED Registered Account Administrator for Chg Fwd Exam Comprehensive The documentation recorded by the Patricio holliday Valerie R, accurately reflects the service I personally performed and the decisions made by Caroline natarajan Adegoke I, MD, [facility] Mar 24, 2019 18:02
--- NOTE | 2019-03-24 18:47 | ECG_ITS ---
Measurements Intervals [place] Rate: 74 P: 29 CT: 132 QRS: 20 QRSD: 89 T: 38 QT: 382 QTc: 426 SINUS RHYTHM Compared to ECG 02/16/2019 22:03:51 No significant changes Electronically Signed On 03-25-2019 11:16:40 PREVENTION SPECIALIST by Abdelrahman Veloz M.D. [email or web address]
--- NOTE | 2019-03-24 18:47 | USCV_ITS ---
Robert Brooks Age: 69 Gender: M : 1950 Exam Date: 03/24/2019 19:01 Ordering Phys: Leo Velazquez MD [facility]ologist: Eusebio Sosa [place] [facility] [place]ication: HX OF CCA STENOSIS Risk Factors: Smoker Previous Vascular Surgery: L CEA LT SUB CLAV STENT Right Brachial BP: / Left Brachial BP: / Right Left Velocity (cm/s) Spectral Plaque Velocity (cm/s) Spectral Plaque Syst/Diast Broadening Syst/Diast Broadening 122.40/15.40 Prox CCA 253.00/ 32.20 Hetro 99.20/ 12.10 Hetro Mid CCA 213.30/ 29.80 Hetro 147.50/21.60 Hetro Distal CCA 173.70/ 32.20 Hetro 183.00/17.00 Hetro Prox ICA 169.70/ 27.20 176.70/21.30 Hetro Mid ICA 125.60/ 23.80 107.60/21.90 Hetro Distal ICA 146.00/ 40.70 197.90 ECA 127.30 1.24 ICA/CCA 0.67 Antegrade Vertebral Antegrade 41.50/ 10.90 cm/s 49.20/ 16.90 cm/s Subclavian 222.4 0 FINDINGS Comparison:. 12/04/18. Prior left CEA AND LEFT SUBCLAVIAN STENT. Moderate bilateral diffuse, heterogenous plaque, right greater than left. Moderate elevation of velocities on the right. Mild tortuosity of velocities in the ICAs. Antegrade vertebral arteries. CONCLUSIONS Right ICA stenosis 50-69%. No interval change in stenosis since prior exam. Left ICA stenosis < 50%. Dr. Paola Goode DO (Electronically Signed) Final Date: 25 March 2019 08:05 S
--- NOTE | 2019-03-24 18:49 | CTR_ITS ---
PROCEDURE INFORMATION: Exam: CT Head Without Contrast Exam date and time: 03/24/2019 6:51 PM Age: 69 years old Clinical indication: Weakness, extremity; Left; Additional info: Left sided weakness. TECHNIQUE: Imaging protocol: Computed tomography of the head without contrast. Total DLP: 802.28 mGy-cm Radiation optimization: All CT scans at this facility use at least one of these dose optimization techniques: automated exposure control; mA and/or kV adjustment per patient size (includes targeted exams where dose is matched to clinical indication); or iterative reconstruction. COMPARISON: CT head wo con* [id number] 08/19/2018 10:59 PM FINDINGS: Brain: Mild atrophy and mild white matter chronic microvascular changes are noted. No hemorrhage or CT evidence of acute infarction is seen. Ventricles: Normal. No ventriculomegaly. Bones/joints: Unremarkable. No acute fracture. Sinuses: Visualized sinuses are unremarkable. No fluid levels. Mastoid air cells: Visualized mastoid air cells are well aerated. Soft tissues: Unremarkable. CT/CT head wo con* [id number] IMPRESSION: No acute intracranial abnormality. Radiation Dose CTDIVOL = (mGy): DLP = 802.28 (mGy-cm)
[2019-03-24 18:59] LABS: Eosinophils # 0.1 10^3/uL (0.0-0.8); Eosinophils % 0.9 %; Hematocrit 38.9 % (42.0-52.0); Hemoglobin 12.3 g/dL (11.7-16.6); Lymphocytes # 1.5 10^3/uL (0.8-4.8); Lymphocytes % 28.8 %; Mean Corpuscular HGB Conc 31.6 g/dL (30.0-36.0); Mean Corpuscular Hemoglobin 27.4 pg (28.0-34.0); Mean Corpuscular Volume 86.6 fL (80-94); Mean Platelet Volume 9.5 fL (7.4-10.4); Monocytes # 0.6 10^3/uL (0.2-0.9); Monocytes % 11.5 %; Neutrophils # 3.1 10^3/uL (1.8-7.7); Neutrophils % 58.6 %; Nucleated Red Blood Cells % 0 %; Platelet Count 144 10^3/cmm (130-400); Red Blood Count 4.49 10^6/uL (4.1-5.3); Red Cell Distribution Width 13.7 % (12.1-15.1); White Blood Count 5.3 10^3/uL (4.0-10.0)
[2019-03-24 19:15] LABS: Alanine Aminotransferase 8 U/L (0-41); Albumin Level 3.9 g/dL (3.5-5.2); Alkaline Phosphatase 75 IU/L (40-130); Anion Gap 14.9 (5-19); Aspartate Amino Transferase 16 U/L (0-40); Blood Urea Nitrogen 16 mg/dL (8-23); Calcium 9.3 mg/dL (8.5-10.5); Carbon Dioxide 28 mmol/L (22-29); Chloride 101 mmol/L (98-107); Glomerular Filtration Rate 54.6 mL/min (90-130); Glucose 108 mg/dL (65-115); Potassium 3.9 mmol/L (3.5-5.1); Sodium 140 mmol/L (136-145); Total Bilirubin 1.8 mg/dL (0.15-1.2); Total Protein 6.9 g/dL (6.6-8.7)
[2019-03-24 19:17] LABS: Troponin(5th) Baseline 10 ng/mL (0-15)
[2019-03-24 19:18] VITALS: BP 181/80; PULSE 72; O2SAT 97
--- NOTE | 2019-03-24 19:21 | PC.NURSE ---
pt states 'left eye is blurry'
--- NOTE | 2019-03-24 20:47 | ECG_ITS ---
Measurements Intervals [place] Rate: 71 P: 26 ID: [id number] QRS: 20 QRSD: 75 T: 46 QT: 403 QTc: 439 SINUS RHYTHM Compared to ECG 02/16/2019 22:03:51 No significant changes Electronically Signed On 03-25-2019 11:24:40 SILVER HOLLOWARE ASSEMBLER by Abdelrahman Veloz M.D. [email or web address]
[2019-03-24 21:21] LABS: Troponin 5 2HR 10.31 ng/mL (0-15); Troponin 5 2HR Delta 0.31 ABS# (0-10)
[2019-03-24 21:42] VITALS: BP 166/80; PULSE 71; RESP 14; TEMP 36.4; O2SAT 97
--- NOTE | 2019-03-27 10:48 | DCPLANNER ---
manager drug had message to schedule a follow up appointment for patient with Dr. Brand at [facility] [place]. manager drug called [facility] [place], spoke with Irene, a follow up appointment was scheduled for Monday, March 29, 2019 at 10:[address] Brand. Clinic will call patient with appointment information.
--- NOTE | 2019-04-02 10:31 | DCPLANNER ---
Appointment scheduled for 03.27.[address] Wadsworth has been cancelled.
== END 2019-03-24 21:37 | disposition home or self-care (01) ==
PROVIDERS: Emergency Provider Family Medicine; Family Provider Family Medicine; PCP Family Medicine
DX: I65.23 Occlusion and stenosis of bilateral carotid arteries (principal); R07.9 Chest pain, unspecified; Z87.891 Personal history of nicotine dependence
CPT/HCPCS: 70450; 80053; 84484; 85025; 93005; 93880; 99281; 99284

== ENCOUNTER 2019-04-29 19:00 | Emergency (ER) | payer MEDICARE, MEDICAID, SELFPAY ==
[2019-04-29 19:08] VITALS: BP 171/82; PULSE 72; RESP 16; TEMP 36.6; O2SAT 96; BMI 33.0
--- NOTE | 2019-04-29 19:18 | ED_ITS ---
Entered by Melisa Garcia, acting as scribe for Gala Kemp MD Apr 29, 2019 19:00 HPI - Weakness General: Chief complaint: Weakness Stated complaint: weakness Time Seen by Provider: 04/29/19 19:17 Source: patient Mode of arrival: ambulatory Limitations: no limitations History of Present Illness: HPI Narrative: 69 yo Male presents to ED with complaint of generalized weakness that started after he took out the trash today. Occured suddenly. no cp. Pt denies any bloody stools, cough, fever, and upper respiratory symptoms. Pt states that he has had loose stools for a while and that is being worked up. Pt denies any focal weakness or other stroke like symptoms. MD Complaint: generalized weakness Onset (ago): hour(s) Location: LLE and RLE Migration: none Severity scale (1-10): 5 Relieving factors: none Exacerbating factors: none Associated symptoms: Denies chest pain, chills, confusion, dark stools, easy b ruising, fever(s), headache(s), nausea, short of breath or vomiting Review of Systems General: Reports: 10 or more systems reviewed and unremarkable except in HPI and below Const: Denies: fever or chills Eyes: Denies: change in vision ENMT: Denies: throat pain Card: Denies: chest pain Resp: Denies: shortness of breath GI: Denies: abdominal pain, nausea, vomiting, change in bowel habits or black tarry stool Musc: Reports: muscle weakness Skin/Breast: Denies: rash Neuro: Reports: weakness in extremities; Denies: headache, numbness in extremities, dizziness, confusion or slurred s peech Psych: Denies: hopelessness or suicidal ideation Endo: Denies: excessive urination Duke/Lymph: Denies: easy bruising or easy bleeding All/Imm: Denies: hives PFSH ED PFSH: Medical History Carotid stenosis, bilateral History of left common carotid artery stent placement Postop carotid endarterectomy surveillance, encounter for Stridor Vocal cord paralysis, unilateral complete Family History Other CAD (coronary artery disease) Cancer Diabetes Social History Smoking and tobacco status: former smoker Physical Exam Const: COMMON NORMALS: no apparent distress, oriented x3, alert and well nourished HENMT: COMMON NORMALS: normocephalic and external nose normal HEAD & SCALP: normocephalic NOSE: external nose normal MOUTH: no trismus Eye: COMMON NORMALS: EOMs intact bilaterally and conjunctivae normal CONJUNCTIVA: Yes conjunctivae normal Neck/C-Spine: COMMON NORMALS: full ROM, no lymphadenopathy and supple CERVICAL SPINE: Yes cervical ROM normal Lymph: LYMPHATIC: no lymphadenopathy noted Resp: COMMON NORMALS: normal respiratory effort, no retractions, no use of accessory muscles and clear to auscultation bilaterally EFFORT & INSPECTION: Yes able to speak in complete sentences AUSCULTATION: clear to auscultation bilaterally Cardio: COMMON NORMALS: regular rate and regular rhythm RATE: regular rate RHYTHM: regular rhythm GI: COMMON NORMALS: normal to inspection, nondistended, normoactive bowel sounds, soft to palpation, non-tender and no masses INSPECTION: Yes normal to inspection AUSCULTATION: Yes normoactive bowel sounds PALPATION: Yes soft, No guarding and No rigid Back/Pelvis: OTHER: Normal range of motion Extremity: GENERAL: Yes normal exam except as noted Neuro: COMMON NORMALS: oriented x3 and CN's II-XII intact bilaterally SENSORIUM/ORIENTATION: Yes alert SPEECH: speech normal GAIT: Yes normal gait MOTOR EXAM: strength 5/5 throughout Psych: COMMON NORMALS: mental status grossly normal Skin: COMMON NORMALS: no rashes or lesions noted GENERAL SKIN EXAM: no rashes or lesions noted Course Vital Signs: Vital signs: Vital Signs Temperature 98 F 04/29/19 19:08 Pulse Rate 72 04/29/19 19:08 Respiratory Rate 16 04/29/19 19:08 Blood Pressure 171/82 04/29/19 19:08 Pulse Oximetry 96 04/29/19 19:08 MDM - Weakness MDM Narrative: Medical decision making narrative: 69-year-old male with sudden onset generalized weakness when he took the trash out this evening has now resolved. Normal neuro exam CT was unremarkable as well as labs and EKG. When I was telling him at discharge about his test that we performed in the emergency department he did reveal to me that he is not sleeping well because his son is having problems with the law and he is a light sleeper anyway. He asked me if this could be part of the problem and I told him it could be. He is not depressed or suicidal. Lab Data: Attestation: I reviewed the patient's lab results. Labs: Lab Results 04/29/19 04/29/19 04/29/19 Range/Units 19:36 19:36 19:36 WBC 5.2 (4.0-10.0) 10^3/ uL RBC 4.73 (4.1-5.3) 10^6/u L Hgb 13.2 (11.7-16.6) g/dL Hct 41.9 L (42.0-52.0) % MCV 88.6 (80-94) fL MCH 27.9 L (28.0-34.0) pg MCHC 31.5 (30.0-36.0) g/dL RDW 13.3 (12.1-15.1) % Plt Count 143 (130-400) 10^3/c mm MPV 9.5 (7.4-10.4) fL Neut % (Auto) 55.4 % Lymph % (Auto) 32.7 % [place] % (Auto) 9.8 % Eos % (Auto) 1.5 % Baso % (Auto) 0.2 % Neut # (Auto) 2.9 (1.8-7.7) 10^3/u L Lymph # (Auto) 1.7 (0.8-4.8) 10^3/u L [place] # (Auto) 0.5 (0.2-0.9) 10^3/u L Eos # (Auto) 0.1 (0.0-0.8) 10^3/u L Baso # (Auto) 0.0 (0.0-0.1) 10^3/u L Nucleated RBC % (a uto) 0 % Nucleated RBCs # 0.0 /100WBC Sodium 139 (136-145) mmol/L Potassium 3.7 (3.5-5.1) mmol/L Chloride 100 (98-107) mmol/L Carbon Dioxide 30 H (22-29) mmol/L Anion Gap 12.7 (5-19) BUN 16 (8-23) mg/dL Creatinine 1.4 H (0.7-1.2) mg/dL GFR Calculation 50.1 L (90-130) mL/min Glucose 125 H (65-115) mg/dL Calculated Osmolal ity 286 (285-295) mOsm/k g Calcium 9.4 (8.5-10.5) mg/dL Total Bilirubin 1.1 (0.15-1.2) mg/dL AST 14 (0-40) U/L ALT 7 (0-41) U/L Alkaline Phosphata se 72 (40-130) IU/L Troponin T Gen 5 n g/L 8 (0-15) ng/mL Total Protein 6.9 (6.6-8.7) g/dL Albumin 3.6 (3.5-5.2) g/dL Globulin 3.3 (1.3-4.6) g/dL Urine Color (Yellow) Urine Appearance (CLEAR) Urine pH (5-7) Ur Specific Gravit y (1.005-1.030) Urine Protein (Negative) Urine Glucose (UA) (Normal) Urine Ketones (Negative) Urine Blood (Negative) Urine Nitrate (Negative) Urine Bilirubin (NEGATIVE) Urine Urobilinogen (Negative) mg/dL Ur Leukocyte Gissel ase (Negative) 04/29/19 Range/Units 19:51 WBC (4.0-10.0) 10^3/ uL RBC (4.1-5.3) 10^6/u L Hgb (11.7-16.6) g/dL Hct (42.0-52.0) % MCV (80-94) fL MCH (28.0-34.0) pg MCHC (30.0-36.0) g/dL RDW (12.1-15.1) % Plt Count (130-400) 10^3/c mm MPV (7.4-10.4) fL Neut % (Auto) % Lymph % (Auto) % [place] % (Auto) % Eos % (Auto) % Baso % (Auto) % Neut # (Auto) (1.8-7.7) 10^3/u L Lymph # (Auto) (0.8-4.8) 10^3/u L [place] # (Auto) (0.2-0.9) 10^3/u L Eos # (Auto) (0.0-0.8) 10^3/u L Baso # (Auto) (0.0-0.1) 10^3/u L Nucleated RBC % (a uto) % Nucleated RBCs # /100WBC Sodium (136-145) mmol/L Potassium (3.5-5.1) mmol/L Chloride (98-107) mmol/L Carbon Dioxide (22-29) mmol/L Anion Gap (5-19) BUN (8-23) mg/dL Creatinine (0.7-1.2) mg/dL GFR Calculation (90-130) mL/min Glucose (65-115) mg/dL Calculated Osmolal ity (285-295) mOsm/k g Calcium (8.5-10.5) mg/dL Total Bilirubin (0.15-1.2) mg/dL AST (0-40) U/L ALT (0-41) U/L Alkaline Phosphata se (40-130) IU/L Troponin T Gen 5 n g/L (0-15) ng/mL Total Protein (6.6-8.7) g/dL Albumin (3.5-5.2) g/dL Globulin (1.3-4.6) g/dL Urine Color Yellow (Yellow) Urine Appearance Clear (CLEAR) Urine pH 5 (5-7) Ur Specific Gravit y 1.025 (1.005-1.030) Urine Protein Neg (Negative) Urine Glucose (UA) Norm (Normal) Urine Ketones Negative (Negative) Urine Blood Neg (Negative) Urine Nitrate Negative (Negative) Urine Bilirubin Neg (NEGATIVE) Urine Urobilinogen Norm (Negative) mg/dL Ur Leukocyte Gissel ase Negative (Negative) Imaging Data^: CT Head: Radiologist's impression: [place] [address] CT Scan Report Signed Patient: Robert Brooks SRUnit #: [id number] : 1950Acct#:[id number] Age/Sex: 69 / MADM Date: 04/29/19 Loc: ERRoom/Bed: Attending Dr: Ordering Provider/Ordering MD: Gala Kemp MD Date of Service: 04/29/19 Procedure(s): CT head wo con* [id number] Accession Number(s): [id number] Report Number: [id number] PROCEDURE INFORMATION: Exam: CT Head Without Contrast Exam date and time: 04/29/2019 7:44 PM Age: 69 years old Clinical indication: Dizziness; Prior surgery; Surgery date: 6+ months; Surgery type: Carotid; Patient HX: Dizzy, blurred vision, new onset; Additional info: Generalized weakness TECHNIQUE: Imaging protocol: Computed tomography of the head without contrast. Total DLP: 881.55 mGy-cm Radiation optimization: All CT scans at this facility use at least one of these dose optimization techniques: automated exposure control; mA and/or kV adjustment per patient size (includes targeted exams where dose is matched to clinical indication); or iterative reconstruction. COMPARISON: CT head wo con* [id number] 03/24/2019 7:56 PM FINDINGS: Brain: Mild volume loss and white matter disease are identified. There is no acute infarct or edema. No hemorrhage. Ventricles: Normal. No ventriculomegaly. Bones/joints: Unremarkable. No acute fracture. Sinuses: Visualized sinuses are unremarkable. No fluid levels. Mastoid air cells: Visualized mastoid air cells are well aerated. Soft tissues: Unremarkable. CT/CT head wo con* [id number] IMPRESSION: There are no acute concerning abnormalities. Radiation Dose CTDIVOL = (mGy): DLP = 881.55 (mGy-cm) Dictated By:Christin Zapata MD Signed By:Christin Zapataigned Date/Time:04/29/192010 DD/ 08 EKG Data^: EKG 1: Attestation: I personally reviewed and interpreted this EKG as follows: EKG interpretation date: 04/29/19 EKG interpretation time: 20:35 Interpretation: Sinus rhythm rate 68 poor R wave progression no ST elevation. Normal FL interval. Discharge Plan Discharge Patient Disposition: Home, Self-Care Clinical Impression: Weakness Condition: Stable Prescriptions: No Action tizanidine 4 mg capsule 4 mg PO Q8H RF: 0 buspirone 10 mg tablet 10 mg PO BID RF: 0 Eliquis 5 mg tablet 5 mg PO BID RF: 0 levothyroxine 100 mcg capsule 50 mcg PO DAILY RF: 0 tamsulosin 0.4 mg capsule 0.4 mg PO DAILY RF: 0 omeprazole 40 mg capsule,delayed release(DR/EC) 40 mg PO DAILY RF: 0 hydrocodone-acetaminophen 5-325 mg tablet 1 tab PO Q6H PRN (Reason: pain) RF: 0 furosemide 20 mg Tablet 20 mg PO DAILY RF: 0 escitalopram oxalate [Lexapro] 10 mg Tablet 10 mg PO DAILY RF: 0 Multiple Vitamins Tablet 1 tab PO DAILY RF: 0 Aspir-81 81 mg Tablet,Delayed Release (Dr/Ec) 81 mg PO DAILY RF: 0 Referrals: Nelida Houser DO [Primary Care Provider] - Patient Instructions: Weakness (Generalized) Activity Restrictions/Additional Instructions: Call your doctor for follow-up if not feeling better as expected. Many doctors are doing telemedicine visits at this time so I would call before going into the office or urgent care. If you are worse and have emergent symptoms return to the ER. Coding Level of Care Code ED Book Jacket Cover Machine Operator for Chg Fwd Exam Comprehensive The documentation recorded by the Radha holliday Carmen, accurately reflects the service I personally performed and the decisions made by me, Gala Kemp MD Apr 29, 2019 19:00
--- NOTE | 2019-04-29 19:36 | CTR_ITS ---
PROCEDURE INFORMATION: Exam: CT Head Without Contrast Exam date and time: 04/29/2019 7:44 PM Age: 69 years old Clinical indication: Dizziness; Prior surgery; Surgery date: 6+ months; Surgery type: Carotid; Patient HX: Dizzy, blurred vision, new onset; Additional info: Generalized weakness TECHNIQUE: Imaging protocol: Computed tomography of the head without contrast. Total DLP: 881.55 mGy-cm Radiation optimization: All CT scans at this facility use at least one of these dose optimization techniques: automated exposure control; mA and/or kV adjustment per patient size (includes targeted exams where dose is matched to clinical indication); or iterative reconstruction. COMPARISON: CT head wo con* [id number] 03/24/2019 7:56 PM FINDINGS: Brain: Mild volume loss and white matter disease are identified. There is no acute infarct or edema. No hemorrhage. Ventricles: Normal. No ventriculomegaly. Bones/joints: Unremarkable. No acute fracture. Sinuses: Visualized sinuses are unremarkable. No fluid levels. Mastoid air cells: Visualized mastoid air cells are well aerated. Soft tissues: Unremarkable. CT/CT head wo con* [id number] IMPRESSION: There are no acute concerning abnormalities. Radiation Dose CTDIVOL = (mGy): DLP = 881.55 (mGy-cm)
[2019-04-29 19:44] LABS: Basophils % 0.2 %; Eosinophils # 0.1 10^3/uL (0.0-0.8); Eosinophils % 1.5 %; Hematocrit 41.9 % (42.0-52.0); Hemoglobin 13.2 g/dL (11.7-16.6); Lymphocytes # 1.7 10^3/uL (0.8-4.8); Lymphocytes % 32.7 %; Mean Corpuscular HGB Conc 31.5 g/dL (30.0-36.0); Mean Corpuscular Hemoglobin 27.9 pg (28.0-34.0); Mean Corpuscular Volume 88.6 fL (80-94); Mean Platelet Volume 9.5 fL (7.4-10.4); Monocytes # 0.5 10^3/uL (0.2-0.9); Monocytes % 9.8 %; Neutrophils # 2.9 10^3/uL (1.8-7.7); Neutrophils % 55.4 %; Nucleated Red Blood Cells % 0 %; Platelet Count 143 10^3/cmm (130-400); Red Blood Count 4.73 10^6/uL (4.1-5.3); Red Cell Distribution Width 13.3 % (12.1-15.1); White Blood Count 5.2 10^3/uL (4.0-10.0)
[2019-04-29 19:58] LABS: Alanine Aminotransferase 7 U/L (0-41); Albumin Level 3.6 g/dL (3.5-5.2); Alkaline Phosphatase 72 IU/L (40-130); Anion Gap 12.7 (5-19); Aspartate Amino Transferase 14 U/L (0-40); Blood Urea Nitrogen 16 mg/dL (8-23); Calcium 9.4 mg/dL (8.5-10.5); Carbon Dioxide 30 mmol/L (22-29); Chloride 100 mmol/L (98-107); Globulin 3.3 g/dL (1.3-4.6); Glomerular Filtration Rate 50.1 mL/min (90-130); Glucose 125 mg/dL (65-115); Osmolality Calculated 286 mOsm/kg (285-295); Potassium 3.7 mmol/L (3.5-5.1); Sodium 139 mmol/L (136-145); Total Bilirubin 1.1 mg/dL (0.15-1.2); Total Protein 6.9 g/dL (6.6-8.7)
[2019-04-29 20:11] LABS: Add Urine Microscopic? NO
[2019-04-29 20:13] LABS: Specific Gravity, Urine 1.025 (1.005-1.030); Urine Appearance Clear (CLEAR); Urine Color Yellow (Yellow); pH Urine 5 (5-7)
[2019-04-29 20:14] LABS: Bilirubin Urine Neg (NEGATIVE); Blood Urine Neg (Negative); Glucose Urine UA Norm (Normal); Ketones Urine Negative (Negative); Leukocyte Esterase Urine Negative (Negative); Nitrate Urine Negative (Negative); Protein Urine Neg (Negative); Urobilinogen Urine Norm (Negative)
--- NOTE | 2019-04-29 20:20 | ECG_ITS ---
Measurements Intervals [place] Rate: 68 P: 64 GA: 138 QRS: 44 QRSD: 85 T: 55 QT: 409 QTc: 437 SINUS RHYTHM Compared to ECG 03/24/2019 20:45:01 No significant changes Electronically Signed On 04-30-2019 20:14:01 CDT by Riley Dillon M.D. [id number]
[2019-04-29 20:38] LABS: Troponin T (5th) Once 8 ng/mL (0-15)
[2019-04-29 21:34] VITALS: BP 191/72; PULSE 67; RESP 16; TEMP 36.4; O2SAT 99
== END 2019-04-29 21:32 | disposition home or self-care (01) ==
PROVIDERS: Emergency Provider Emergency Medicine; Family Provider Family Medicine; PCP Family Medicine
DX: R53.1 Weakness (principal); Z87.891 Personal history of nicotine dependence
CPT/HCPCS: 12345; 36415; 70450; 80053; 81003; 84484; 85025; 93005; 99281; 99283

== ENCOUNTER 2019-06-10 10:41 | Outpatient (CLI) | payer MEDICARE, MEDICAID, SELFPAY ==
--- NOTE | 2019-06-10 11:09 | MR_ITS ---
WS: [id number] MRI BRAIN WITH HIGH-RESOLUTION IMAGING THROUGH THE INTERNAL AUDITORY CANALS WITHOUT AND WITH CONTRAST HISTORY: DIZZINESS AND GIDDINESS COMPARISON: CT head 04/29/2019 TECHNIQUE: Multiplanar, multisequence imaging is performed through the brain. Additional 3 mm imaging performed in multiple planes through the internal auditory canal. Postcontrast imaging with 17 ml's of Prohance. No acute intracranial hemorrhage, midline shift, edema or mass effect. Mild atrophy and mild chronic microvascular ischemic disease. No prior infarcts. Small lacunar in the RIGHT caudate body. No inferior displacement of cerebellar tonsils. No prior hemorrhage. No mass at the cerebellopontine angles. Ventricles and extra-axial spaces are normal. No inferior displacement of cerebellar tonsils. Clivus and pituitary gland are normal. Internal and external auditory canals: Unremarkable. Cranial nerves VII and VIII complexes: Unremarkable. No enhancement or mass. Cerebellopontine angles: Normal. Paranasal sinuses: Normal. Mastoid air cells: Normal. Calvarium and scalp: Normal. Visualized upper [place] of [place] and dural venous sinuses demonstrate no abnormality. Well-circumscribed nodule in the superficial LEFT parotid gland may be an adenoma or lymph node. MR/MR iac's wo/w con* [id number] IMPRESSION: 1. No mass at the internal auditory canals or cerebellopontine angles. 2. Mild atrophy and mild chronic microvascular ischemic disease.
== END 2019-06-10 10:42 | disposition home or self-care (01) ==
LOC: RADWPI 10:45
PROVIDERS: Family Provider Family Medicine; PCP Family Medicine; Visit Provider Specialist
DX: R42 Dizziness and giddiness (principal); I25.89 Other forms of chronic ischemic heart disease
CPT/HCPCS: 70553; A9579

== ENCOUNTER 2019-08-02 18:03 | Emergency (ER) | payer MEDICARE, MEDICAID, SELFPAY ==
[2019-08-02 18:53] VITALS: BP 193/95; PULSE 72; RESP 14; TEMP 36.9; O2SAT 96; BMI 32.8
== END 2019-08-02 19:47 | disposition left against medical advice (07) ==
PROVIDERS: Emergency Provider Family Medicine; PCP Family Medicine
DX: Z53.21 Procedure and treatment not carried out due to patient leaving prior to being seen by health care provider (principal)
CPT/HCPCS: 99281

== ENCOUNTER 2019-08-06 07:33 | Outpatient (CLI) | payer MEDICARE, MEDICAID, SELFPAY ==
--- NOTE | 2019-08-06 07:59 | CT_ITS ---
WS: [id number] CT NECK WITH CONTRAST HISTORY: LEFT pAROTID MASS TECHNIQUE: Contiguous 5 mm axial images are performed through the neck intravenous contrast. Sagitta l and coronal reformats are also submitted. All CT scans at [facility] use at least one o f these dose optimization techniques: automated exposure control; mA and/or kV withadjustment per pat ient size (includes targeted exams where dose is matched to clinical indication); or iterative recons truction. CONTRAST: CONTRAST: Visipaque 320; 95 mL IV. DLP: 3171.08 mGycm COMPARISON: 12/02/2018, 01/23/2018, 07/03/2017 Again noted is a small saccule of air in the RIGHT paraglottic soft tissues at the level of the thyro id cartilage. This saccule of air increases on breath-holding and is probably a laryngocele. No assoc iated soft tissue mass or variable density. The nasopharynx and oropharynx and the remaining soft tis sues of the larynx are stable. No cervical chain lymphadenopathy. Enhancing nodule measuring 9 mm in the superficial LEFT parotid lobe. This nodule is slightly lobulat ed in size and stable since 07/03/2017. No additional enhancing masses. Atherosclerosis at the carotid bifurcations. Prior endarterectomy on the LEFT. There is near 50% sten osis bilaterally at the bifurcations. Straightening of the normal cervical lordosis with severe degenerative disc disease at C5-6. Visualized paranasal sinuses and mastoid air cells are normal. Lung apices are clear. CT/CT neck w con* [id number] IMPRESSION: 1. Atherosclerosis carotid arteries with 50% stenosis bilaterally and prior LE FT endarterectomy. 2. Enhancing lobulated, superficial LEFT parotid mass measures 9 mm. Stable si nce 06/25/2017 and probably a lymph node. 3. Saccule of air in the RIGHT paraglottic soft tissues. 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 No change since 12/02/2018.
[2019-08-06 08:35] LABS: Blood Urea Nitrogen 18 mg/dL (8-23)
[2019-08-06] MEDS: iodixanol 320 mg/mL 100mL Btl IV (08:41)
== END 2019-08-06 07:34 | disposition home or self-care (01) ==
LOC: RADWPI 07:36
PROVIDERS: Family Provider Family Medicine; PCP Family Medicine; Visit Provider Specialist
DX: D11.0 Benign neoplasm of parotid gland (principal); I65.23 Occlusion and stenosis of bilateral carotid arteries
CPT/HCPCS: 70491; 82565; 84520; Q9967

== ENCOUNTER 2019-08-14 11:37 | Outpatient (CLI) | payer MEDICARE, MEDICAID, SELFPAY ==
--- NOTE | 2019-08-14 11:43 | USCV_ITS ---
Robert Brooks Age: 69 Gender: M : 1950 Exam Date: 08/14/2019 11:53 Ordering Phys: Wolf Brand MD (Andy) ([email or web address] [place] Technologist: Dona Malik Exam Location: [facility] [place] Indication: STENOSIS Risk Factors: Previous Vascular Surgery: Right Brachial BP: / Left Brachial BP: / Right Left Velocity (cm/s) Spectral Plaque Velocity (cm/s) Spectral Plaque Syst/Diast Broadening Syst/Diast Broadening 102.50/22.10 Prox CCA 111.40/ 28.70 175.60/26.40 Mid CCA 126.80/ 27.60 174.00/29.50 Distal CCA 214.20/ 36.50 172.70/31.50 Prox ICA 175.50/ 20.50 80.50/ 14.30 Mid ICA 91.70 / 14.00 87.10/ 20.90 Distal ICA 122.70/ 35.70 174.00 ECA 102.50 0.81 ICA/CCA 1.38 Antegrade Vertebral Antegrade 45.20/ 12.10 cm/s 79.40/ 17.60 cm/s Tri Subclavian Tri 121.3 140.3 0 0 FINDINGS Moderate diffuse plaques in the right common carotid and internal carotid artery. Moderate to heavy diffuse plaques in the left common carotid and internal carotid arteries. Antegrade flow in the vertebral arteries bilaterally Elevated Doppler flow velocity in the right external carotid artery Normal Doppler waveforms in the subclavian arteries bilaterally CONCLUSIONS Moderate to heavy plaques in the left common carotid artery with elevated Doppler velocities, may suggest hemodynamically significant stenosis. Moderate diffuse plaques in the right common carotid and internal carotid artery with elevated velocities, suggestive of hemodynamically significant stenosis Consider CTA, to better evaluate the aortic arch vessels/proximal arteries Dr Roxanna Temple MD [facility] (Electronically Signed) Final Date: 14 August 2019 17:55 S
== END 2019-08-14 11:38 | disposition home or self-care (01) ==
LOC: RAD 11:42
PROVIDERS: PCP Family Medicine; Visit Provider Thoracic Surgery (Cardiothoracic Vascular Surgery)
DX: I65.23 Occlusion and stenosis of bilateral carotid arteries (principal)
CPT/HCPCS: 93880

== ENCOUNTER 2019-09-04 07:32 | Outpatient (CLI) | payer MEDICARE, MEDICAID, SELFPAY ==
--- NOTE | 2019-09-04 07:39 | NM_ITS ---
WS: [id number] NUCLEAR MEDICINE BONE SCAN 3 PHASE Radiopharmaceutical: 25.4 Tc-99m MDP mCi IV Injection site: Left wrist Postinjection imaging delay: 2 hr CLINICAL INFORMATION: HIP PAIN/R KNEE PAIN,UNSPECIFIED CHRONICITY COMPARISON: None. FINDINGS: Evidence of bilateral total knee replacement. Bone marrow activity about the prostheses con sistent with normal changes of bony remodeling. Both hips are normal in appearance. Normal blood flow and blood pool images with attention to both hips and femoral heads. No evidence of avascular necros is. Mild degenerative type uptake involving both AC joints. Bone lesions: There are no osseous lesions suspicious for metastatic disease. Soft tissue contours: Normal. Kidneys: Normal. Other findings: None. NM/NM bone 3 phase [id number] IMPRESSION: 1. Both hips are normal in appearance with normal blood flow, blood pool, and skeletal activity. 2. Normal periarticular activity about the bilateral TKAs. 3. No other significant findings.
== END 2019-09-04 07:33 | disposition home or self-care (01) ==
LOC: NM 07:33
PROVIDERS: PCP Family Medicine; Visit Provider Orthopaedic Surgery
DX: M25.552 Pain in left hip (principal); M25.551 Pain in right hip; M25.561 Pain in right knee; Z96.653 Presence of artificial knee joint, bilateral
CPT/HCPCS: 78315; A9561

== ENCOUNTER 2019-10-01 22:59 | Emergency (ER) | payer MEDICARE, MEDICAID, SELFPAY ==
[2019-10-01 23:05] VITALS: BP 153/74; PULSE 91; RESP 22; TEMP 36.7; O2SAT 94; BMI 45.4
--- NOTE | 2019-10-02 | XRR_ITS ---
PROCEDURE INFORMATION: Exam: XR Chest, 1 View Exam date and time: 10/02/2019 12:26 AM Age: 69 years old Clinical indication: Cough and shortness of breath; Prior surgery; Surgery type: Sents; Additional info: Cp, shortness of breath, cough TECHNIQUE: Imaging protocol: XR of the chest Views: Frontal portable upright view of the chest. COMPARISON: CR XR chest 1V portable [id number] 02/16/2019 8:08 PM FINDINGS: Lungs: The lungs are clear bilaterally. The pulmonary vasculature is normal. Pleural space: No pleural effusion. No pneumothorax. Heart/Mediastinum: The heart is normal in size and contour. Mediastinum: Stable. Bones/joints: Stable. XR/XR chest 1V portable [id number] IMPRESSION: No acute cardiopulmonary abnormality identified.
== END 2019-10-02 01:33 ==
LOC: ER 23:09
PROVIDERS: Emergency Provider Emergency Medicine; PCP Family Medicine
DX: Z53.21 Procedure and treatment not carried out due to patient leaving prior to being seen by health care provider (principal)
CPT/HCPCS: 71045; 99281

== ENCOUNTER 2020-01-10 17:59 | Emergency (ER) | payer MEDICARE, MEDICAID, SELFPAY ==
[2020-01-10 18:13] VITALS: BP 192/82; PULSE 93; RESP 28; TEMP 36.3; O2SAT 98; BMI 35.9
--- NOTE | 2020-01-10 18:16 | ECG_ITS ---
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1950 Requested By: Efrem Rivera Order Number: [id number] Reading MD: RACHELLE ANGEL Measurements Intervals [place] Rate: 86 P: 33 AR: 131 QRS: 26 QRSD: 69 T: 56 QT: 360 QTc: 432 Interpretive Statements SINUS RHYTHM LOW QRS VOLTAGE IN PRECORDIAL LEADS [QRS DEFLECTION < 1.0 mV IN CHEST LEADS] Compared to ECG 04/29/2019 20:33:36 Low QRS voltage now present Electronically Signed On 01-11-2020 17:27:45 VICE PRESIDENT SALES by RACHELLE ANGEL [email or web address] [id number] f
[2020-01-10 20:58] VITALS: PULSE 87; RESP 16; O2SAT 98
--- NOTE | 2020-01-10 22:18 | CTR_ITS ---
PROCEDURE INFORMATION: Exam: CT Neck With Contrast Exam date and time: 01/10/2020 10:25 PM Age: 69 years old Clinical indication: Dyspnea / difficulty breathing; Prior surgery; Surgery type: Vocal cords; Patient HX: Worsening dyspnea with dysphagia. ; Additional info: Vocal cord paralysis, difficulty breathing TECHNIQUE: Imaging protocol: Computed tomography images of the neck with intravenous contrast. Radiation optimization: All CT scans at this facility use at least one of these dose optimization techniques: automated exposure control; mA and/or kV adjustment per patient size (includes targeted exams where dose is matched to clinical indication); or iterative reconstruction. Contrast material: OMNI 300; Contrast volume: 95 ml; Contrast route: INTRAVENOUS (IV); COMPARISON: CT neck w con* [id number] 08/06/2019 8:39 AM RADIATION DOSE METRICS: Total DLP (mGy-cm): 739.22 FINDINGS: Mastoid air cells: The mastoid air cells are clear bilaterally. Paranasal sinuses: The paranasal sinuses, as demonstrated, appear clear. Nasopharynx: No enlargement of the adenoids. Oropharynx: The tonsils appear unremarkable. Hypopharynx: Unremarkable. Larynx: The true vocal cords appear bilaterally symmetric. No mass or abnormal enhancement demonstrated. 4 mm focus of air in the right paraglottic soft tissues noted, unchanged there are 2 additional smaller foci of air seen, one on each side of the larynx, measuring 2 mm on the right and 1.5 mm on the left. These may represent small laryngoceles. Retropharyngeal space: Unremarkable. Submandibular/Parotid glands: 10 mm enhancing lymph node posterior to the left parotid gland, unchanged. No significant abnormality of the parotid or submandibular glands. Thyroid: No enlarged or calcified nodules. Lymph nodes: No pathologically enlarged lymph nodes are demonstrated. Trachea: The trachea is widely patent. No retained secretions demonstrated. The roscoe is unremarkable. Lungs: Lung apices are unremarkable. Bones/joints: Degenerative cervical spine changes are noted. No acute osseous abnormality. Vasculature: Carotid atherosclerosis again noted. Surgical clips adjacent to the bilateral carotid arteries noted. Soft tissues: No significant soft tissue swelling. Other findings: Upper mediastinal structures are unremarkable for age. CT/CT neck w con* [id number] IMPRESSION: 1. Carotid atherosclerosis, not significantly changed from 08/06/2019. 2. Small foci of air adjacent to the larynx, likely small laryngocele spirit the largest of these is unchanged. The 2 smaller ones appear new. 3. The vocal cords appear morphologically normal. There are no CT findings of vocal cord paralysis. 4. No abnormal mass or adenopathy demonstrated. Radiation Dose CTDIVOL = (mGy): DLP = 739.22 (mGy-cm)
--- NOTE | 2020-01-10 22:19 | XRR_ITS ---
PROCEDURE INFORMATION: Exam: XR Chest, 1 View Exam date and time: 01/10/2020 10:25 PM Age: 69 years old Clinical indication: Shortness of breath; Additional info: SOB TECHNIQUE: Imaging protocol: XR of the chest Views: 1 view. COMPARISON: CR XR chest 1V portable [id number] 10/02/2019 12:15 AM FINDINGS: Lungs: The lungs are hyperinflated with mild coarsening of the interstitial lung markings unchanged since the prior exam compatible probable fibrosis. No consolidation. Pleural space: Unremarkable. No pleural effusion. No pneumothorax. Heart/Mediastinum: There is unchanged cardiomegaly. Bones/joints: No acute abnormality. XR/XR chest 1V portable [id number] IMPRESSION: No acute findings.
--- NOTE | 2020-01-10 22:19 | ECG_ITS ---
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
[2020-01-10 22:43] LABS: Basophils % 0.3 %; Eosinophils # 0.1 10^3/uL (0.0-0.8); Hematocrit 39.9 % (42.0-52.0); Lymphocytes # 2.3 10^3/uL (0.8-4.8); Lymphocytes % 32.8 %; Mean Corpuscular HGB Conc 32.6 g/dL (30.0-36.0); Mean Corpuscular Volume 89.1 fL (80-94); Mean Platelet Volume 9.6 fL (7.4-10.4); Monocytes # 0.7 10^3/uL (0.2-0.9); Monocytes % 9.8 %; Neutrophils # 3.76 10^3/uL (1.8-7.7); Neutrophils % 54.8 %; Nucleated Red Blood Cells % 0 %; Platelet Count 170 10^3/cmm (130-400); Red Blood Count 4.48 10^6/uL (4.1-5.3); Red Cell Distribution Width 13.3 % (12.1-15.1); White Blood Count 6.9 10^3/uL (4.0-10.0)
[2020-01-10 23:08] LABS: Troponin(5th) Baseline 7 ng/L (0-15)
[2020-01-10 23:09] VITALS: PULSE 77; O2SAT 99
[2020-01-10 23:17] LABS: Alanine Aminotransferase 8 U/L (0-41); Albumin Level 4.1 g/dL (3.5-5.2); Alkaline Phosphatase 79 IU/L (40-130); Anion Gap 11.1 (5-19); Aspartate Amino Transferase 14 U/L (0-40); Blood Urea Nitrogen 20 mg/dL (8-23); C Reactive Protein 10.5 mg/L (0.0-4.9); Calcium 9.2 mg/dL (8.5-10.5); Carbon Dioxide 31 mmol/L (22-29); Chloride 102 mmol/L (98-107); Globulin 2.7 g/dL (1.3-4.6); Glomerular Filtration Rate 59.9 mL/min (90-130); Glucose 112 mg/dL (65-115); NT Pro B Type Natriuretic Pept 250 pg/mL (0-125); Osmolality Calculated 293 mOsm/kg (285-295); Potassium 4.1 mmol/L (3.5-5.1); Sodium 140 mmol/L (136-145); Total Bilirubin 1.1 mg/dL (0.15-1.2); Total Protein 6.8 g/dL (6.6-8.7)
[2020-01-10] MEDS: iohexol 300 mg/mL 100 mL Btl IV (23:36)
[2020-01-10 23:41] LABS: Influenza A by IFA Negative (Negative); Influenza B by IFA Negative (Negative); SARS Covid-2 Antigen Negative (Negative)
[2020-01-10 23:52] VITALS: BP 170/77; PULSE 78; RESP 18; O2SAT 96
[2020-01-11 00:34] VITALS: BP 177/79; PULSE 85; RESP 16; O2SAT 98
--- NOTE | 2020-01-11 00:35 | CTR_ITS ---
PROCEDURE INFORMATION: Exam: CT Abdomen And Pelvis Without Contrast Exam date and time: 01/11/2020 12:35 AM Age: 69 years old Clinical indication: Abdominal pain; Localized; Right upper quadrant (ruq); Prior surgery; Surgery type: Gb. Appy; Patient HX: Ruq pain. Additional info: Epigastric pain TECHNIQUE: Imaging protocol: Computed tomography of the abdomen and pelvis without contrast. Radiation optimization: All CT scans at this facility use at least one of these dose optimization techniques: automated exposure control; mA and/or kV adjustment per patient size (includes targeted exams where dose is matched to clinical indication); or iterative reconstruction. COMPARISON: CT abdomen pelvis wo con [id number] 10/28/2015 12:28 AM RADIATION DOSE METRICS: Total DLP (mGy-cm): 1359.58 FINDINGS: Limitations: Examinations performed without intravenous contrast have limited ability to detect many conditions. Lungs: Mild atelectasis at bilateral lung bases. Liver: Unremarkable. Gallbladder and bile ducts: Status post cholecystectomy. Pancreas: Unremarkable. Spleen: Unremarkable. Adrenal glands: Unremarkable. Kidneys and ureters: Contrast (presumably from a prior study) is noted in the renal excretory systems bilaterally. The presence or absence of renal stones is difficult to determine on this study. No hydronephrosis. Stomach and bowel: No bowel obstruction identified. No diverticulitis identified. Appendix: The appendix is not identified as a separate structure. No findings to suggest appendicitis. Intraperitoneal space: No free intraperitoneal air identified. No free intraperitoneal fluid identified. Vasculature: Extensive atherosclerotic aortoiliac calcification. No abdominal aortic aneurysm. Lymph nodes: Unremarkable. Urinary bladder: The bladder is filled with contrast. Reproductive: Unremarkable as visualized. Bones/joints: No emergent findings identified. Soft tissues: Unremarkable. CT/CT abdomen pelvis wo con [id number] IMPRESSION: 1. No acute intra-abdominal/intrapelvic process identified. Radiation Dose CTDIVOL = (mGy): DLP = 1359.58 (mGy-cm)
--- NOTE | 2020-01-11 00:41 | ED_ITS ---
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 He said since then he has had vocal cord issues. They have attempted surgery for the vocal cord problems but have been unsuccessful. He says he gets occasional shortness of breath from what appears to be vocal cord paralysis. He says symptoms have been worsening the last few days and his scared to lie down because of this. He called the ENT surgeon and he advised him to come here to be evaluated. No fever, he does have cough when it is difficult for him to breathe. MD elicited complaint: shortness of breath Pertinent past history: congestive heart failure Associated symptoms: Deny abdominal pain, fever(s), nausea, palpitations, polydipsia, polyuria or vomiting Review of Systems General: Reports: 10 or more systems reviewed and unremarkable except in HPI and below Const: Denies: fever(s), chills or body aches Eyes: Denies: change in vision or blurry vision ENMT: Denies: throat pain, enlarged tonsils, odynophagia, hoarseness, mouth pain or swelling of lips/tongue Card: Denies: palpitations, irregular heart rhythm, edema or swelling of feet/ankles Resp: Reports: dyspnea and non-productive cough; Denies: productive cough GI: Denies: abdominal pain, nausea or vomiting : Denies: flank pain, dysuria, urinary frequency, urinary urgency or urinary hesitancy Musc: Denies: neck pain, back pain or extremity swelling Skin/Breast: Denies: rash, pruritus or erythema Neuro: Denies: headache(s), numbness in extremities or weakness in extremities Endo: Denies: polyuria, polydipsia or tired all the time [facility] ED PFSH: Medical History (Updated 01/19/20 @ 00:00 by ) Carotid stenosis, bilateral History of left common carotid artery stent placement Postop carotid endarterectomy surveillance, encounter for Stridor Vocal cord paralysis, unilateral complete Family History Other CAD (coronary artery disease) Cancer Diabetes Social History Smoking and tobacco status: former smoker Physical Exam Const: COMMON NORMALS: no acute distress, average body habitus, patient oriented x3, no limitations, healthy appearing, alert and well nourished HENMT: COMMON NORMALS: normocephalic, atraumatic and moist oral mucous membranes HEAD & SCALP: normocephalic and atraumatic Neck/C-Spine: COMMON NORMALS: full ROM, supple, no meningeal signs, no JVD and No carotid bruits Resp: COMMON NORMALS: normal respiratory effort, No retractions, No use of accessory muscles, clear to auscultation bilaterally and percussion normal AUSCULTATION: clear to auscultation bilaterally PERCUSSION: percussion normal Cardio: COMMON NORMALS: no JVD, regular rate, regular rhythm, S1 normal heart sound present, S2 normal heart sound present, No gallops present (Cardio), No clicks present (Cardio), No murmurs present (Cardio), No rub (Cardio) and Peripheral pulses 2+ throughout RATE: regular rate RHYTHM: regular rhythm HEART SOUNDS: S1 normal heart sound present and S2 normal heart sound present PERIPHERAL PULSES: Peripheral pulses 2+ throughout GI: COMMON NORMALS: Normal to inspection, nondistended, normoactive bowel sounds present, Soft to palpation, non-tender, No hepatosplenomegaly present, no masses and no bruits PALPATION: Yes Soft to palpation and Yes No hepatosplenomegaly present Extremity: COMMON NORMALS: normal to inspection, full ROM, capillary refill normal, no calf tenderness and no pedal edema Neuro: COMMON NORMALS: patient oriented x3 SENSORIUM/ORIENTATION: Yes alert MENINGEAL SIGNS: Yes no meningeal signs Skin: COMMON NORMALS: no rashes or lesions noted, no wounds, turgor normal, no jaundice, no petechiae and no mottling GENERAL SKIN EXAM: no rashes or lesions noted and turgor normal Course ED course: This 69 year old male with 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 He has had intermittent issues with difficulty breathing since. This episode is more severe so he came here to be evaluated. His vital signs remained stable throughout his ED stay and evaluation was unremarkable including CT scan of his neck. Prior to discharge he complained of severe RUQ pain and a CT has been ordered. He is signed out to Dr. Ibarra to assume care pending the result of his CT scan. Vital Signs: Vital signs: Vital Signs Temperature 97.3 F L 01/10/20 18:13 Pulse Rate 77 01/11/20 03:20 Respiratory Rate 18 01/11/20 03:20 Blood Pressure 141/49 01/11/20 03:20 Pulse Oximetry 99 01/11/20 03:20 MDM - SOB/Dyspnea Lab Data: Labs: Lab Results 01/10/20 01/10/20 01/10/20 Range/Units 22:34 22:34 22:34 WBC 6.9 (4.0-10.0) 10^3/ uL RBC 4.48 (4.1-5.3) 10^6/u L Hgb 13.0 (11.7-16.6) g/dL Hct 39.9 L (42.0-52.0) % MCV 89.1 (80-94) fL MCH 29.0 (28.0-34.0) pg MCHC 32.6 (30.0-36.0) g/dL RDW 13.3 (12.1-15.1) % Plt Count 170 (130-400) 10^3/c mm MPV 9.6 (7.4-10.4) fL Neut % (Auto) 54.8 % Lymph % (Auto) 32.8 % [place] % (Auto) 9.8 % Eos % (Auto) 2.0 % Baso % (Auto) 0.3 % Neut # (Auto) 3.76 (1.8-7.7) 10^3/u L Lymph # (Auto) 2.3 (0.8-4.8) 10^3/u L [place] # (Auto) 0.7 (0.2-0.9) 10^3/u L Eos # (Auto) 0.1 (0.0-0.8) 10^3/u L Baso # (Auto) 0.0 (0.0-0.1) 10^3/u L Nucleated RBC % (a uto) 0 % Nucleated RBCs # 0.0 /100WBC Sodium 140 (136-145) mmol/L Potassium 4.1 (3.5-5.1) mmol/L Chloride 102 (98-107) mmol/L Carbon Dioxide 31 H (22-29) mmol/L Anion Gap 11.1 (5-19) BUN 20 (8-23) mg/dL Creatinine 1.2 (0.7-1.2) mg/dL GFR Calculation 59.9 L (90-130) mL/min Glucose 112 (65-115) mg/dL Calculated Osmolal ity 293 (285-295) mOsm/k g Calcium 9.2 (8.5-10.5) mg/dL Total Bilirubin 1.1 (0.15-1.2) mg/dL AST 14 (0-40) U/L ALT 8 (0-41) U/L Alkaline Phosphata se 79 (40-130) IU/L Troponin T Baselin e 7 (0-15) ng/L C-Reactive Protein 10.5 H (0.0-4.9) mg/L NT-Pro-B Natriuret Pep 250 H (0-125) pg/mL Total Protein 6.8 (6.6-8.7) g/dL Albumin 4.1 (3.5-5.2) g/dL Globulin 2.7 (1.3-4.6) g/dL Lipase (13-60) U/L Urine Color (Yellow) Urine Appearance (CLEAR) Urine pH (5-7) Ur Specific Gravit y (1.005-1.030) Urine Protein (Negative) Urine Glucose (UA) (Normal) Urine Ketones (Negative) Urine Blood (Negative) Urine Nitrate (Negative) Urine Bilirubin (Negative) Urine Urobilinogen (Negative) mg/dL Ur Leukocyte Gissel ase (Negative) Influenza Type A A g (Negative) Influenza Type B A g (Negative) SARS-CoV-2 Ag (Rap id) (Negative) 01/10/20 01/10/20 01/10/20 Range/Units 22:34 22:45 22:45 WBC (4.0-10.0) 10^3/ uL RBC (4.1-5.3) 10^6/u L Hgb (11.7-16.6) g/dL Hct (42.0-52.0) % MCV (80-94) fL MCH (28.0-34.0) pg MCHC (30.0-36.0) g/dL RDW (12.1-15.1) % Plt Count (130-400) 10^3/c mm MPV (7.4-10.4) fL Neut % (Auto) % Lymph % (Auto) % [place] % (Auto) % Eos % (Auto) % Baso % (Auto) % Neut # (Auto) (1.8-7.7) 10^3/u L Lymph # (Auto) (0.8-4.8) 10^3/u L [place] # (Auto) (0.2-0.9) 10^3/u L Eos # (Auto) (0.0-0.8) 10^3/u L Baso # (Auto) (0.0-0.1) 10^3/u L Nucleated RBC % (a uto) % Nucleated RBCs # /100WBC Sodium (136-145) mmol/L Potassium (3.5-5.1) mmol/L Chloride (98-107) mmol/L Carbon Dioxide (22-29) mmol/L Anion Gap (5-19) BUN (8-23) mg/dL Creatinine (0.7-1.2) mg/dL GFR Calculation (90-130) mL/min Glucose (65-115) mg/dL Calculated Osmolal ity (285-295) mOsm/k g Calcium (8.5-10.5) mg/dL Total Bilirubin (0.15-1.2) mg/dL AST (0-40) U/L ALT (0-41) U/L Alkaline Phosphata se (40-130) IU/L Troponin T Baselin e (0-15) ng/L C-Reactive Protein (0.0-4.9) mg/L NT-Pro-B Natriuret Pep (0-125) pg/mL Total Protein (6.6-8.7) g/dL Albumin (3.5-5.2) g/dL Globulin (1.3-4.6) g/dL Lipase 42 (13-60) U/L Urine Color (Yellow) Urine Appearance (CLEAR) Urine pH (5-7) Ur Specific Gravit y (1.005-1.030) Urine Protein (Negative) Urine Glucose (UA) (Normal) Urine Ketones (Negative) Urine Blood (Negative) Urine Nitrate (Negative) Urine Bilirubin (Negative) Urine Urobilinogen (Negative) mg/dL Ur Leukocyte Gissel ase (Negative) Influenza Type A A g Negative (Negative) Influenza Type B A g Negative (Negative) SARS-CoV-2 Ag (Rap id) Negative (Negative) 01/11/20 Range/Units 01:46 WBC (4.0-10.0) 10^3/ uL RBC (4.1-5.3) 10^6/u L Hgb (11.7-16.6) g/dL Hct (42.0-52.0) % MCV (80-94) fL MCH (28.0-34.0) pg MCHC (30.0-36.0) g/dL RDW (12.1-15.1) % Plt Count (130-400) 10^3/c mm MPV (7.4-10.4) fL Neut % (Auto) % Lymph % (Auto) % [place] % (Auto) % Eos % (Auto) % Baso % (Auto) % Neut # (Auto) (1.8-7.7) 10^3/u L Lymph # (Auto) (0.8-4.8) 10^3/u L [place] # (Auto) (0.2-0.9) 10^3/u L Eos # (Auto) (0.0-0.8) 10^3/u L Baso # (Auto) (0.0-0.1) 10^3/u L Nucleated RBC % (a uto) % Nucleated RBCs # /100WBC Sodium (136-145) mmol/L Potassium (3.5-5.1) mmol/L Chloride (98-107) mmol/L Carbon Dioxide (22-29) mmol/L Anion Gap (5-19) BUN (8-23) mg/dL Creatinine (0.7-1.2) mg/dL GFR Calculation (90-130) mL/min Glucose (65-115) mg/dL Calculated Osmolal ity (285-295) mOsm/k g Calcium (8.5-10.5) mg/dL Total Bilirubin (0.15-1.2) mg/dL AST (0-40) U/L ALT (0-41) U/L Alkaline Phosphata se (40-130) IU/L Troponin T Baselin e (0-15) ng/L C-Reactive Protein (0.0-4.9) mg/L NT-Pro-B Natriuret Pep (0-125) pg/mL Total Protein (6.6-8.7) g/dL Albumin (3.5-5.2) g/dL Globulin (1.3-4.6) g/dL Lipase (13-60) U/L Urine Color Yellow (Yellow) Urine Appearance Clear (CLEAR) Urine pH 5 (5-7) Ur Specific Gravit y 1.020 (1.005-1.030) Urine Protein Neg (Negative) Urine Glucose (UA) Norm (Normal) Urine Ketones Negative (Negative) Urine Blood Neg (Negative) Urine Nitrate Negative (Negative) Urine Bilirubin Neg (Negative) Urine Urobilinogen Norm (Negative) mg/dL Ur Leukocyte Gissel ase Negative (Negative) Influenza Type A A g (Negative) Influenza Type B A g (Negative) SARS-CoV-2 Ag (Rap id) (Negative) Imaging Data^: CXR: Attestation: I personally reviewed and interpreted this imaging study as follows: Radiologist's impression: [address] [address] XRay Report Signed Patient: Robert Brooks SRUnit #: [id number] : 1950Acct#:[id number] Age/Sex: 69 / MADM Date: 01/10/20 Loc: ERRoom/Bed: Attending Dr: Ordering Provider/Ordering MD: Leo Velazquez MD, [facility] [place] Date of Service: 01/10/20 Procedure(s): XR chest 1V portable [id number] Accession Number(s): [id number] Report Number: [id number] PROCEDURE INFORMATION: Exam: XR Chest, 1 View Exam date and time: 01/10/2020 10:25 PM Age: 69 years old Clinical indication: Shortness of breath; Additional info: SOB TECHNIQUE: Imaging protocol: XR of the chest Views: 1 view. COMPARISON: CR XR chest 1V portable [id number] 10/02/2019 12:15 AM FINDINGS: Lungs: The lungs are hyperinflated with mild coarsening of the interstitial lung markings unchanged since the prior exam compatible probable fibrosis. No consolidation. Pleural space: Unremarkable. No pleural effusion. No pneumothorax. Heart/Mediastinum: There is unchanged cardiomegaly. Bones/joints: No acute abnormality. XR/XR chest 1V portable [id number] IMPRESSION: No acute findings. Dictated By:Marie Lion Signed By:Gus Lion Date/Time:01/10/202243 DD/ [address]: Radiologist's impression: [address] [address] [address] Scan Report Signed Patient: Robert Brooks SRUnit #: [id number] : 1950Acct#:[id number] Age/Sex: 69 / MADM Date: 01/10/20 Loc: ERRoom/Bed: Attending Dr: Ordering Provider/Ordering MD: Leo Velazquez MD, [facility] [place] Date of Service: 01/10/20 Procedure(s): CT neck w con* [id number] Accession Number(s): [id number] Report Number: [id number] PROCEDURE INFORMATION: Exam: CT Neck With Contrast Exam date and time: 01/10/2020 10:25 PM Age: 69 years old Clinical indication: Dyspnea / difficulty breathing; Prior surgery; Surgery type: Vocal cords; Patient HX: Worsening dyspnea with dysphagia. ; Additional info: Vocal cord paralysis, difficulty breathing TECHNIQUE: Imaging protocol: Computed tomography images of the neck with intravenous contrast. Radiation optimization: All CT scans at this facility use at least one of these dose optimization techniques: automated exposure control; mA and/or kV adjustment per patient size (includes targeted exams where dose is matched to clinical indication); or iterative reconstruction. Contrast material: OMNI 300; Contrast volume: 95 ml; Contrast route: INTRAVENOUS (IV); COMPARISON: CT neck w con* [id number] 08/06/2019 8:39 AM RADIATION DOSE METRICS: Total DLP (mGy-cm): 739.22 FINDINGS: Mastoid air cells: The mastoid air cells are clear bilaterally. Paranasal sinuses: The paranasal sinuses, as demonstrated, appear clear. Nasopharynx: No enlargement of the adenoids. Oropharynx: The tonsils appear unremarkable. Hypopharynx: Unremarkable. Larynx: The true vocal cords appear bilaterally symmetric. No mass or abnormal enhancement demonstrated. 4 mm focus of air in the right paraglottic soft tissues noted, unchanged there are 2 additional smaller foci of air seen, one on each side of the larynx, measuring 2 mm on the right and 1.5 mm on the left. These may represent small laryngoceles. Retropharyngeal space: Unremarkable. Submandibular/Parotid glands: 10 mm enhancing lymph node posterior to the left parotid gland, unchanged. No significant abnormality of the parotid or submandibular glands. Thyroid: No enlarged or calcified nodules. Lymph nodes: No pathologically enlarged lymph nodes are demonstrated. Trachea: The trachea is widely patent. No retained secretions demonstrated. The roscoe is unremarkable. Lungs: Lung apices are unremarkable. Bones/joints: Degenerative cervical spine changes are noted. No acute osseous abnormality. Vasculature: Carotid atherosclerosis again noted. Surgical clips adjacent to the bilateral carotid arteries noted. Soft tissues: No significant soft tissue swelling. Other findings: Upper mediastinal structures are unremarkable for age. CT/CT neck w con* [id number] IMPRESSION: 1. Carotid atherosclerosis, not significantly changed from 08/06/2019. 2. Small foci of air adjacent to the larynx, likely small laryngocele spirit the largest of these is unchanged. The 2 smaller ones appear new. 3. The vocal cords appear morphologically normal. There are no CT findings of vocal cord paralysis. 4. No abnormal mass or adenopathy demonstrated. Radiation Dose CTDIVOL = (mGy): DLP = 739.22 (mGy-cm) Dictated By:Ton Marsh MD Signed By:Ton Marsh MDSigned Date/Time:01/11/20 0001 DD/ 0000 EKG Data^: EKG 1: Attestation: I personally reviewed and interpreted this EKG as follows: EKG Interpretation Date: 01/10/20 EKG interpretation time: 22:51 Prior EKG tracings: not available for review Interpretation: NSR HR [address] changes, normal axis. Discharge Plan Discharge Patient Disposition: Home Clinical Impression: Vocal cord dysfunction Condition: Stable Prescriptions: No Action tizanidine 4 mg capsule 4 mg PO Q8H RF: 0 buspirone 10 mg tablet 10 mg PO BID RF: 0 Eliquis 5 mg tablet 5 mg PO BID RF: 0 levothyroxine 100 mcg capsule 50 mcg PO DAILY RF: 0 tamsulosin 0.4 mg capsule 0.4 mg PO DAILY RF: 0 omeprazole 40 mg capsule,delayed release(DR/EC) 40 mg PO DAILY RF: 0 hydrocodone-acetaminophen 5-325 mg tablet 1 tab PO Q6H PRN (Reason: pain) RF: 0 furosemide 20 mg Tablet 20 mg PO DAILY RF: 0 escitalopram oxalate [Lexapro] 10 mg Tablet 10 mg PO DAILY RF: 0 Aspir-81 81 mg Tablet,Delayed Release (Dr/Ec) 81 mg PO DAILY RF: 0 Discharge Orders: Discharge ED (Routine); Ordered 01/11/20 Ordered By: Efrem Ibarra Referrals: Nelida Houser DO [Primary Care Provider] - 4-7 days Discharge Diet: Advance as tolerated Discharge Activity: Increase activity as tolerated Activity Restrictions/Additional Instructions: Return for worsening shortness of breath, fever greater than 100, significant chest pain, other concerning symptoms. Call your ENT surgeon Monday morning, to let them know you were here. Coding Level of Care Code ED Livestock Counter for Chg Fwd Exam Comprehensive Documented by User: Efrem Ibarra DO 01/11/20 03:37 HPI - SOB/Dyspnea General: Chief Complaint: Shortness of Breath/Dyspnea Stated Complaint: DIFFICULTY BREATHING Time Seen by Provider: 01/10/20 21:36 PFSH ED PFSH: Medical History (Updated 01/19/20 @ 00:00 by ) Carotid stenosis, bilateral History of left common carotid artery stent placement Postop carotid endarterectomy surveillance, encounter for Stridor Vocal cord paralysis, unilateral complete Family History Other CAD (coronary artery disease) Cancer Diabetes Social History Smoking and tobacco status: former smoker Course Vital Signs: Vital signs: Vital Signs Temperature 97.3 F L 01/10/20 18:13 Pulse Rate 77 01/11/20 03:20 Respiratory Rate 18 01/11/20 03:20 Blood Pressure 141/49 01/11/20 03:20 Pulse Oximetry 99 01/11/20 03:20 MDM - SOB/Dyspnea MDM Narrative: Medical decision making narrative: 69-year-old gentleman checked out to me by Dr. Velazquez at shift change. This gentleman complained of shortness of breath and been worsening over the past couple of days. He apparently had an injury to his vocal cord, or recurrent laryngeal nerve causing some vocal cord dysfunction. He gets short of breath because of this. That was his main complaint. His chest x-ray showed no acute findings. CT of the soft tissue neck shows 3 small laryngeal seals not likely to cause his issue. His laboratory was benign. Before discharge, the patient started complaining of right upper quadrant abdominal pain. He was observed walking to CAT scan after CT of the belly was ordered. His pain seems resolved now. His CT showed no acute intra-abdominal findings. He will be discharged home. Lab Data: Labs: Lab Results 01/10/20 01/10/20 01/10/20 Range/Units 22:34 22:34 22:34 WBC 6.9 (4.0-10.0) 10^3/ uL RBC 4.48 (4.1-5.3) 10^6/u L Hgb 13.0 (11.7-16.6) g/dL Hct 39.9 L (42.0-52.0) % MCV 89.1 (80-94) fL MCH 29.0 (28.0-34.0) pg MCHC 32.6 (30.0-36.0) g/dL RDW 13.3 (12.1-15.1) % Plt Count 170 (130-400) 10^3/c mm MPV 9.6 (7.4-10.4) fL Neut % (Auto) 54.8 % Lymph % (Auto) 32.8 % [place] % (Auto) 9.8 % Eos % (Auto) 2.0 % Baso % (Auto) 0.3 % Neut # (Auto) 3.76 (1.8-7.7) 10^3/u L Lymph # (Auto) 2.3 (0.8-4.8) 10^3/u L [place] # (Auto) 0.7 (0.2-0.9) 10^3/u L Eos # (Auto) 0.1 (0.0-0.8) 10^3/u L Baso # (Auto) 0.0 (0.0-0.1) 10^3/u L Nucleated RBC % (a uto) 0 % Nucleated RBCs # 0.0 /100WBC Sodium 140 (136-145) mmol/L Potassium 4.1 (3.5-5.1) mmol/L Chloride 102 (98-107) mmol/L Carbon Dioxide 31 H (22-29) mmol/L Anion Gap 11.1 (5-19) BUN 20 (8-23) mg/dL Creatinine 1.2 (0.7-1.2) mg/dL GFR Calculation 59.9 L (90-130) mL/min Glucose 112 (65-115) mg/dL Calculated Osmolal ity 293 (285-295) mOsm/k g Calcium 9.2 (8.5-10.5) mg/dL Total Bilirubin 1.1 (0.15-1.2) mg/dL AST 14 (0-40) U/L ALT 8 (0-41) U/L Alkaline Phosphata se 79 (40-130) IU/L Troponin T Baselin e 7 (0-15) ng/L C-Reactive Protein 10.5 H (0.0-4.9) mg/L NT-Pro-B Natriuret Pep 250 H (0-125) pg/mL Total Protein 6.8 (6.6-8.7) g/dL Albumin 4.1 (3.5-5.2) g/dL Globulin 2.7 (1.3-4.6) g/dL Lipase (13-60) U/L Urine Color (Yellow) Urine Appearance (CLEAR) Urine pH (5-7) Ur Specific Gravit y (1.005-1.030) Urine Protein (Negative) Urine Glucose (UA) (Normal) Urine Ketones (Negative) Urine Blood (Negative) Urine Nitrate (Negative) Urine Bilirubin (Negative) Urine Urobilinogen (Negative) mg/dL Ur Leukocyte Gissel ase (Negative) Influenza Type A A g (Negative) Influenza Type B A g (Negative) SARS-CoV-2 Ag (Rap id) (Negative) 01/10/20 01/10/20 01/10/20 Range/Units 22:34 22:45 22:45 WBC (4.0-10.0) 10^3/ uL RBC (4.1-5.3) 10^6/u L Hgb (11.7-16.6) g/dL Hct (42.0-52.0) % MCV (80-94) fL MCH (28.0-34.0) pg MCHC (30.0-36.0) g/dL RDW (12.1-15.1) % Plt Count (130-400) 10^3/c mm MPV (7.4-10.4) fL Neut % (Auto) % Lymph % (Auto) % [place] % (Auto) % Eos % (Auto) % Baso % (Auto) % Neut # (Auto) (1.8-7.7) 10^3/u L Lymph # (Auto) (0.8-4.8) 10^3/u L [place] # (Auto) (0.2-0.9) 10^3/u L Eos # (Auto) (0.0-0.8) 10^3/u L Baso # (Auto) (0.0-0.1) 10^3/u L Nucleated RBC % (a uto) % Nucleated RBCs # /100WBC Sodium (136-145) mmol/L Potassium (3.5-5.1) mmol/L Chloride (98-107) mmol/L Carbon Dioxide (22-29) mmol/L Anion Gap (5-19) BUN (8-23) mg/dL Creatinine (0.7-1.2) mg/dL GFR Calculation (90-130) mL/min Glucose (65-115) mg/dL Calculated Osmolal ity (285-295) mOsm/k g Calcium (8.5-10.5) mg/dL Total Bilirubin (0.15-1.2) mg/dL AST (0-40) U/L ALT (0-41) U/L Alkaline Phosphata se (40-130) IU/L Troponin T Baselin e (0-15) ng/L C-Reactive Protein (0.0-4.9) mg/L NT-Pro-B Natriuret Pep (0-125) pg/mL Total Protein (6.6-8.7) g/dL Albumin (3.5-5.2) g/dL Globulin (1.3-4.6) g/dL Lipase 42 (13-60) U/L Urine Color (Yellow) Urine Appearance (CLEAR) Urine pH (5-7) Ur Specific Gravit y (1.005-1.030) Urine Protein (Negative) Urine Glucose (UA) (Normal) Urine Ketones (Negative) Urine Blood (Negative) Urine Nitrate (Negative) Urine Bilirubin (Negative) Urine Urobilinogen (Negative) mg/dL Ur Leukocyte Gissel ase (Negative) Influenza Type A A g Negative (Negative) Influenza Type B A g Negative (Negative) SARS-CoV-2 Ag (Rap id) Negative (Negative) 01/11/20 Range/Units 01:46 WBC (4.0-10.0) 10^3/ uL RBC (4.1-5.3) 10^6/u L Hgb (11.7-16.6) g/dL Hct (42.0-52.0) % MCV (80-94) fL MCH (28.0-34.0) pg MCHC (30.0-36.0) g/dL RDW (12.1-15.1) % Plt Count (130-400) 10^3/c mm MPV (7.4-10.4) fL Neut % (Auto) % Lymph % (Auto) % [place] % (Auto) % Eos % (Auto) % Baso % (Auto) % Neut # (Auto) (1.8-7.7) 10^3/u L Lymph # (Auto) (0.8-4.8) 10^3/u L [place] # (Auto) (0.2-0.9) 10^3/u L Eos # (Auto) (0.0-0.8) 10^3/u L Baso # (Auto) (0.0-0.1) 10^3/u L Nucleated RBC % (a uto) % Nucleated RBCs # /100WBC Sodium (136-145) mmol/L Potassium (3.5-5.1) mmol/L Chloride (98-107) mmol/L Carbon Dioxide (22-29) mmol/L Anion Gap (5-19) BUN (8-23) mg/dL Creatinine (0.7-1.2) mg/dL GFR Calculation (90-130) mL/min Glucose (65-115) mg/dL Calculated Osmolal ity (285-295) mOsm/k g Calcium (8.5-10.5) mg/dL Total Bilirubin (0.15-1.2) mg/dL AST (0-40) U/L ALT (0-41) U/L Alkaline Phosphata se (40-130) IU/L Troponin T Baselin e (0-15) ng/L C-Reactive Protein (0.0-4.9) mg/L NT-Pro-B Natriuret Pep (0-125) pg/mL Total Protein (6.6-8.7) g/dL Albumin (3.5-5.2) g/dL Globulin (1.3-4.6) g/dL Lipase (13-60) U/L Urine Color Yellow (Yellow) Urine Appearance Clear (CLEAR) Urine pH 5 (5-7) Ur Specific Gravit y 1.020 (1.005-1.030) Urine Protein Neg (Negative) Urine Glucose (UA) Norm (Normal) Urine Ketones Negative (Negative) Urine Blood Neg (Negative) Urine Nitrate Negative (Negative) Urine Bilirubin Neg (Negative) Urine Urobilinogen Norm (Negative) mg/dL Ur Leukocyte Gissel ase Negative (Negative) Influenza Type A A g (Negative) Influenza Type B A g (Negative) SARS-CoV-2 Ag (Rap id) (Negative) Discharge Plan Discharge Patient Disposition: Home Clinical Impression: Vocal cord dysfunction Condition: Stable Prescriptions: No Action tizanidine 4 mg capsule 4 mg PO Q8H RF: 0 buspirone 10 mg tablet 10 mg PO BID RF: 0 Eliquis 5 mg tablet 5 mg PO BID RF: 0 levothyroxine 100 mcg capsule 50 mcg PO DAILY RF: 0 tamsulosin 0.4 mg capsule 0.4 mg PO DAILY RF: 0 omeprazole 40 mg capsule,delayed release(DR/EC) 40 mg PO DAILY RF: 0 hydrocodone-acetaminophen 5-325 mg tablet 1 tab PO Q6H PRN (Reason: pain) RF: 0 furosemide 20 mg Tablet 20 mg PO DAILY RF: 0 escitalopram oxalate [Lexapro] 10 mg Tablet 10 mg PO DAILY RF: 0 Aspir-81 81 mg Tablet,Delayed Release (Dr/Ec) 81 mg PO DAILY RF: 0 Discharge Orders: Discharge ED (Routine); Ordered 01/11/20 Ordered By: Efrem Ibarra Referrals: Nelida Houser DO [Primary Care Provider] - 4-7 days Discharge Diet: Advance as tolerated Discharge Activity: Increase activity as tolerated Activity Restrictions/Additional Instructions: Return for worsening shortness of breath, fever greater than 100, significant chest pain, other concerning symptoms. Call your ENT surgeon Monday morning, to let them know you were here. Coding Level of Care Code ED Livestock Counter for [place] Fwd Exam Comprehensive
[2020-01-11] MEDS: ondansetron 2 mg/ML SDV 2 mL 4 MG IVP (00:54)
[2020-01-11] MEDS: pantoprazole 40 mg SDV IVP (00:55)
[2020-01-11 01:43] VITALS: BP 150/84
[2020-01-11 02:09] VITALS: BP 162/84; PULSE 81; RESP 117; O2SAT 98
[2020-01-11 02:38] VITALS: BP 175/77; O2SAT 96
[2020-01-11 02:42] LABS: Add Urine Microscopic? NO
[2020-01-11 03:12] VITALS: O2SAT 99
[2020-01-11 03:20] VITALS: BP 141/49; PULSE 77; RESP 18; O2SAT 99
[2020-01-11 03:25] LABS: Bilirubin Urine Neg (Negative); Blood Urine Neg (Negative); Glucose Urine UA Norm (Normal); Ketones Urine Negative (Negative); Leukocyte Esterase Urine Negative (Negative); Nitrate Urine Negative (Negative); Protein Urine Neg (Negative); Urine Appearance Clear (CLEAR); Urine Color Yellow (Yellow); Urobilinogen Urine Norm (Negative); pH Urine 5 (5-7)
--- NOTE | 2020-01-11 04:19 | ECG_ITS ---
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1950 Requested By: Leo Velazquez I Order Number: [id number] Reading MD: RACHELLE ANGEL Measurements Intervals [place] Rate: 76 P: 44 AK: 131 QRS: 39 QRSD: 72 T: 60 QT: 373 QTc: 421 Interpretive Statements SINUS RHYTHM LOW QRS VOLTAGE IN PRECORDIAL LEADS [QRS DEFLECTION < 1.0 mV IN CHEST LEADS] Compared to ECG 01/10/2020 22:50:50 Low QRS voltage now present Electronically Signed On 01-11-2020 17:28:10 WHITEWASHER by RACHELLE ANGEL [email or web address] community [email or web address] county [id number]
[2020-01-11 04:31] LABS: Lipase 42 U/L (13-60)
== END 2020-01-11 03:16 | disposition home or self-care (01) ==
PROVIDERS: Family Medicine; Emergency Provider Emergency Medicine; PCP Family Medicine
DX: J38.3 Other diseases of vocal cords (principal); Z87.891 Personal history of nicotine dependence; Z79.01 Long term (current) use of anticoagulants; Z79.82 Long term (current) use of aspirin
CPT/HCPCS: 12345; 70491; 71045; 74176; 80053; 81003; 83690; 83880; 84484; 85025; 86140; 87426; 87804; 93005; 96374; 96375; 99283; C9113; J2405; Q9967

== ENCOUNTER 2020-02-27 11:59 | Outpatient (CLI) | payer MEDICARE, MEDICAID, SELFPAY ==
--- NOTE | 2020-02-27 12:45 | USCV_ITS ---
MartinRobert white Age: 70 Gender: M : 1950 Exam Date: 02/27/2020 12:13 Ordering Phys: Wolf Brand MD (Andy) ([email or web address]) Technologist: Dona Malik Exam Location: [facility] [place] Indication: stenosis Risk Factors: Previous Vascular Surgery: Right Brachial BP: / Left Brachial BP: / Right Left Velocity (cm/s) Spectral Plaque Velocity (cm/s) Spectral Plaque Syst/Diast Broadening Syst/Diast Broadening 108.10/16.50 Prox CCA 85.00 / 15.70 188.00/32.60 Mid CCA 127.50/ 19.00 211.90/29.60 Distal CCA 187.00/ 24.10 124.50/18.80 Prox ICA 104.50/ 26.10 143.10/23.50 Mid ICA 104.50/ 30.20 97.30/ 10.10 Distal ICA 80.40 / 34.20 164.10 ECA 154.80 0.76 ICA/CCA 0.82 Antegrade Vertebral Antegrade 25.20/ 5.50 cm/s 39.10/ 10.10 cm/s Tri Subclavian Tri 66.00 163.7 0 FINDINGS Comparison:. 08/14/19. Diffuse bilateral scattered calcified plaque and intimal thickening throughout the common carotid arteries and extending through the bifurcation. Surface of the plaque is irregular. Mild elevation of velocity in the CCA and ICA's. Ratios remain normal due to elevated velocity in the CCA's. No significant progression. CONCLUSIONS Extensive, diffuse irrregular plaque with only mild elevation of velocity. Stenosis just greater than 50%, bilateral. Dr. Paola Goode DO (Electronically Signed) Final Date: 27 February 2020 14:28 S
== END 2020-02-27 12:00 | disposition home or self-care (01) ==
LOC: US 12:01
PROVIDERS: PCP Family Medicine; Visit Provider Thoracic Surgery (Cardiothoracic Vascular Surgery)
DX: I65.23 Occlusion and stenosis of bilateral carotid arteries (principal)
CPT/HCPCS: 93880

== ENCOUNTER 2020-04-01 08:31 | Outpatient (CLI) | payer MEDICARE, MEDICAID, SELFPAY ==
--- NOTE | 2020-04-01 08:50 | XR_ITS ---
WS: [id number] Exam: XR hip LT 2-3V wo/w pel* [id number] Date/Time of Exam: 04/01/2020 8:50 AM Reason For Exam: CHRONIC LOW BACK PAIN/CHRONIC L HIP PAIN No fracture or dislocation. Mild to moderate degenerative narrowing of the joint compartment. Normal soft tissues. XR/XR hip LT 2-3V wo/w pel* [id number] IMPRESSION: 1. Mild to moderate DJD. No fracture noted.
--- NOTE | 2020-04-01 08:50 | XR_ITS ---
WS: [id number] Exam: XR lumbar spine 2-3V* [id number] Date/Time of Exam: 04/01/2020 8:50 AM Reason For Exam: CHRONIC LOW BACK PAIN/L HIP PAIN No acute fracture or dislocation. Minimal degenerative anterolisthesis of L4 on L5. Disc spaces are p reserved. Mild spondylosis. Facet DJD at all levels. Aortoiliac atherosclerosis. DJD of the bilateral SI joints. XR/XR lumbar spine 2-3V* [id number] IMPRESSION: 1. No acute fracture or malalignment. 2. Minimal degenerative anterolisthesis of L4 on L5. Facet DJD and mild spondyl osis at all levels.
== END 2020-04-01 08:32 | disposition home or self-care (01) ==
PROVIDERS: PCP Family Medicine; Visit Provider Family Medicine
DX: M47.816 Spondylosis without myelopathy or radiculopathy, lumbar region (principal); M16.12 Unilateral primary osteoarthritis, left hip
CPT/HCPCS: 72100; 73502

== ENCOUNTER 2020-06-25 12:52 | Observation (INO) | payer MEDICARE, MEDICAID, SELFPAY ==
[2020-06-25] VITALS (14 sets, daily range): BP systolic 178–231; BP diastolic 85–117; PULSE 70–85; RESP 15–26; TEMP 36.5–36.7; O2SAT 96–98; BMI 37.5
--- NOTE | 2020-06-25 13:02 | ECG_ITS ---
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 Measurements Intervals [place] Rate: 88 P: 43 AR: 132 QRS: 46 QRSD: 79 T: 45 QT: 365 QTc: 442 Interpretive Statements SINUS RHYTHM MODERATE ST DEPRESSION [0.05+ mV ST DEPRESSION] Compared to ECG 01/11/2020 02:59:42 ST (T wave) deviation now present Electronically Signed On 06-25-2020 23:48:19 CDT by Roxanna Temple M.D. [id number]
--- NOTE | 2020-06-25 13:02 | CT_ITS ---
WS: [id number] CT HEAD TECHNIQUE: Noncontrast CT of the head obtained from the skullbase to the vertex. CLINICAL INFORMATION: Symptoms of Acute Stroke COMPARISON: CT April 29, 2019 DLP: 992.[address] scans at [facility] use at least one of these dose optimization techniques: automat ed exposure control; mA and/or kV adjustment per patient size (includes targeted exams where dose is matched to clinical indication); or iterative reconstruction. FINDINGS: No evidence of intracranial hemorrhage or mass effect. Ventricular system and basal cisterns are shi nt. Mild small vessel changes with mild parenchymal volume loss. Chronic lacunar infarct right caudat e. No extra-axial fluid collections. No evidence of mass or mass effect. Normal golden-white differenti ation. Paranasal sinuses and mastoid air cells are well aerated. .Normal visualized soft tissues. CT/CT head wo con* [id number] IMPRESSION: 1. No evidence of intracranial hemorrhage or mass effect. 2. Mild small vessel changes. Mild parenchymal volume loss. 3. No acute intracranial findings. Notified Srini Foreman MD at 06/25/2020 1:39 PM.
--- NOTE | 2020-06-25 13:02 | CT_ITS ---
WS: [id number] CTA HEAD AND NECK TECHNIQUE: Contrast enhanced CTA of the head and neck with coronal and sagittal reformatted images an d maximum intensity projection (MIP) images. NASCET criteria utilized. CLINICAL INFORMATION: possible cva COMPARISON: CTA September 2018 DLP: 2369.[address] scans at [facility] use at least one of these dose optimization techniques: automat ed exposure control; mA and/or kV adjustment per patient size (includes targeted exams where dose is matched to clinical indication); or iterative reconstruction. FINDINGS: RIGHT: Right common carotid artery is patent. Mild stenosis of the right common carotid origin. Moder ate calcified atheromatous plaque right carotid bulb extending into the ICA with mild stenosis measur ing less than 50%. Right ICA is patent to the skull base. Evidence of prior right carotid endarterect marychuy. LEFT: Left common carotid artery is patent. Moderate atheromatous plaque left carotid bulb extending into the ICA with evidence of prior endarterectomy. Mild stenosis distal common carotid artery measur ing approximately 30-40%. No significant left ICA stenosis. Left ICA is patent to the skull base. INTRACRANIAL CTA: Left vertebral artery origin stent. Left vertebral artery is patent. Vertebral arteries are patent to the skull base. Proximal basilar artery is patent. Normal vascularity to the ROOM SERVER territory bilaterally. Both ICAs are patent at the skull base with mild cavernous carotid calcification. Hypoplastic right A1 segment. No rmal vascularity to the RAEANN and MCA territories bilaterally. No evidence of high-grade proximal steno sis or aneurysm. Patent anterior communicating artery. Patent right posterior communicating artery. Paranasal sinuses and mastoid air cells are well aerated. Chronic lacunar infarct right caudate. CT/CT angio headneck* [id number] IMPRESSION: 1. Prior postoperative changes bilateral carotid endarterectomies. Mild stenos is right proximal ICA measuring less than 50%. 2. No significant left ICA stenosis. Mild stenosis distal left common carotid artery is unchanged. 3. Left vertebral artery origin stent is new from previous. Both vertebral art eries are patent to the basilar junction. 4. Mild intracranial cavernous carotid calcification. No flow-limiting intracr anial stenosis. 5. Hypoplastic right A1 segment. 6. Chronic lacunar infarct right caudate. Notified Srini Foreman MD at 06/25/2020 1:53 PM.
--- NOTE | 2020-06-25 13:02 | XRR_ITS ---
PROCEDURE INFORMATION: Exam: XR Chest Exam date and time: 06/25/2020 1:27 PM Age: 70 years old Clinical indication: Other: Reduced breath sounds TECHNIQUE: Imaging protocol: XR of the chest. Views: 1 view. COMPARISON: CR XR chest 1V portable [id number] 01/10/2020 10:28 PM FINDINGS: Lungs: Unremarkable. No consolidation. Pleural spaces: Unremarkable. No pleural effusion. No pneumothorax. Heart/Mediastinum: Cardiomegaly is identified. Bones/joints: Unremarkable. XR/XR chest 1V portable [id number] IMPRESSION: There are no acute concerning abnormalities.
[2020-06-25] MEDS: iodixanol 320 mg/mL 100mL Btl IV (13:18)
[2020-06-25 13:25] LABS: Basophils % 0.5 %; Eosinophils # 0.1 10^3/uL (0.0-0.8); Eosinophils % 2.2 %; Hematocrit 40.4 % (42.0-52.0); Lymphocytes # 2.2 10^3/uL (0.8-4.8); Lymphocytes % 34.5 %; Mean Corpuscular HGB Conc 32.2 g/dL (30.0-36.0); Mean Platelet Volume 9.7 fL (7.4-10.4); Monocytes # 0.7 10^3/uL (0.2-0.9); Monocytes % 11.7 %; Neutrophils # 3.19 10^3/uL (1.8-7.7); Neutrophils % 50.6 %; Nucleated Red Blood Cells % 0 %; Platelet Count 178 10^3/cmm (130-400); Red Blood Count 4.49 10^6/uL (4.1-5.3); Red Cell Distribution Width 13.5 % (12.1-15.1); White Blood Count 6.3 10^3/uL (4.0-10.0)
[2020-06-25 13:30] LABS: Glucose Point of Care 129 mg/dL (70-110)
[2020-06-25 13:31] LABS: INR 0.98 (0.8-1.2)
[2020-06-25 13:32] LABS: Partial Thromboplastin Time 30.2 SECONDS (23.9-36.7)
[2020-06-25 13:35] LABS: Alanine Aminotransferase 8 U/L (0-41); Albumin Level 3.9 g/dL (3.5-5.2); Alcohol Level < 10 mg/dL (0-10); Alkaline Phosphatase 74 IU/L (40-130); Anion Gap 13.1 (5-19); Aspartate Amino Transferase 14 U/L (0-40); Blood Urea Nitrogen 18 mg/dL (8-23); Calcium 8.6 mg/dL (8.5-10.5); Carbon Dioxide 27 mmol/L (22-29); Chloride 104 mmol/L (98-107); Globulin 2.5 g/dL (1.3-4.6); Glucose 86 mg/dL (65-115); Osmolality Calculated 291 mOsm/kg (285-295); Potassium 4.1 mmol/L (3.5-5.1); Sodium 140 mmol/L (136-145); Total Bilirubin 1.4 mg/dL (0.15-1.2); Total Protein 6.4 g/dL (6.6-8.7)
[2020-06-25 13:40] LABS: Troponin(5th) Baseline 9 ng/L (0-15)
--- NOTE | 2020-06-25 13:47 | USCV_ITS ---
Robert Brooks Age: 70 Gender: M : 1950 Exam Date: 06/25/2020 14:00 Ordering Phys: Srini Foreman MD Technologist: Exam Location: [facility] [place] Indication: DVT HISTORY: DVT. PROCEDURES: Venous duplex imaging was performed in bilateral lower extremities. The following venous structures were evaluated: common femoral vein, profunda vein, proximal portion of the greater saphenous vein, superficial femoral vein, and the popliteal vein. In addition, the posterior tibial and peroneal trunk were evaluated. Serial compression, augmentation maneuvers, and spectral Doppler flow evaluation were performed. FINDINGS: Normal 2-D Doppler and augmentation and compressibility throughout the lower extremity venous structures. Additional imaging through the proximal calf veins also reveals no thrombus. Limited evaluation of the greater saphenous vein is patent with no thrombus.. CONCLUSIONS No evidence of right lower extremity DVT. No evidence of left lower extremity DVT. Keith Chen MD (Electronically Signed) Final Date: 25 Jun 2020 16:31 S
[2020-06-25 14:13] LABS: Add Urine Microscopic? YES; Bilirubin Urine Neg (Negative); Blood Urine Neg (Negative); Glucose Urine UA Norm (Normal); Ketones Urine Negative (Negative); Leukocyte Esterase Urine Negative (Negative); Nitrate Urine Negative (Negative); Protein Urine Trace (Negative); Urine Appearance Clear (CLEAR); Urine Color Yellow (Yellow); Urobilinogen Urine Norm (Negative); pH Urine 6.5 (5-7)
[2020-06-25 14:16] LABS: NT Pro B Type Natriuretic Pept 190 pg/mL (0-125)
--- NOTE | 2020-06-25 14:19 | MRR_ITS ---
PROCEDURE INFORMATION: Exam: MR Head Without Contrast Exam date and time: 06/25/2020 2:20 PM Age: 70 years old Clinical indication: Other: Possible TIA; Additional info: Possible CVA. Dysarthria, rue heaviness, h/o TIA. TECHNIQUE: Imaging protocol: MR of the head without contrast. COMPARISON: CT angio headneck* [id number] 06/25/2020 1:14 PM FINDINGS: Brain: There are T2/flair hyperintensities in the periventricular and subcortical white matter consistent with chronic microvascular disease. There is no significant mass effect or midline shift. There is no acute intracranial hemorrhage. Cerebral ventricles: There is mild ex vacuo dilation of the lateral ventricles. The basal cisterns are unremarkable. Bones/joints: Unremarkable. Paranasal sinuses: Normal as visualized. No acute sinusitis. Mastoid air cells: The mastoid air cells are clear. Orbital cavity: The orbits are unremarkable. Soft tissues: Unremarkable. MR/MR head wo con* [id number] IMPRESSION: 1. No acute findings. 2. Limited evaluation for infarction or ischemia without diffusion weighted images. These images have been requested. An addendum to this report will be issued when they become available.
--- NOTE | 2020-06-25 14:21 | PM.SAN ---
Stroke Alert Activation ED Arrival Date: 06/25/20 ED Physican at Bedside: 13:03 Last Known Normal/at Baseline: 3-4 hours ago Other Last Known Well Infomation: This patient gives a variable report. He says that he woke up with blurred vision on the right. 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 He thought his speech was slurred several hours ago, maybe 4 hours ago and may be longer. He is on Eliquis but he skipped a dose yesterday. He is not sure if he took it the day before. He has had problems with his right leg not holding him up and he is fallen numerous times recently. He feels more weak on the right today than usual. There was some question of whether he was weak on the right. He arrived by private vehicle at around 1 PM. Stroke team was called not long after he arrived, activated by triage. I called the emergency department immediately and was told that Dr. Huffman was going to see the patient. I heard back from Dr. Huffman after the patient had his CAT scan of the head and CT angiogram, about 1:50 PM. I came to the patient's bedside 10 minutes later (my path was blocked and I had to turn around and go back) after having reviewed the CAT scan in my office. I took a history and performed an exam and it was my impression that his stroke scale score was less than 2, time of onset was unknown and it was not clear that his symptoms were related to stroke. He is on Eliquis and it sounds like he probably has taken Eliquis up until yesterday and for all of these reasons he is not a candidate for TPA. Incidentally, he has been following with Dr. Brand in the cardiac clinic after having had left carotid endarterectomy that was complicated by vocal cord paralysis. He had previous right carotid endarterectomy that restenosed and he had stenting on that side. He has significant problems with his right knee which is unstable. Stroke Alert Activated by: Triage Stroke Alert Activation Time: 13:03 Stroke MD @ Bedside Time: 13:05 NIH Stroke Scale Time: 14:00 NIH stroke score NIHSS: Level Of Consciousness - 1a: 0 Level Of Consciousness Questions - 1b: Both Correct Level Of Consciousness Commands - 1c: Both Correct Best Gaze - 2: Normal Visual Rivera - 3: No Visual Loss Facial Palsy - 4: Normal Motor Arm Right - 5: No Drift Motor Arm Left - 5: No Drift Motor Leg Right - 6: No Drift Motor Leg Left - 6: No Drift Limb Ataxia - 7: Absent Sensory - 8: Mild To Moderate Loss Best Language - 9: No Aphasia Dysarthia - 10: Mild/Moderate Dysarthia Extinction And Inattention - 11: 0 Score: Total Score: 2 Stroke Alert Data/Treatment Time to CT of Head: 13:10 CT Impression: Unremarkable with no acute changes Stroke Risk Factors: hyperlipidemia, hypertension and obesity tPA Contraindication: tPA Contraindication: Treatment not indcated tPA Admin Prior to Arrival: No Patient & Family Educated on: Cause of Stroke Critical Care Time Critical Care Time: less than 30 mins A&P Assessment and plan (1) TIA (transient ischemic attack): 70-year-old man with known bilateral carotid disease status post bilateral endarterectomy and right sided stenting presented with questionable time of onset of right-sided weakness. He has minimal numbness. He has minimal numbness on exam now and no motor findings. He is complaining of blurred vision in the right eye but does not have a visual field loss. Its not clear when he last took Eliquis. Its not clear when his symptoms began and he does not have a deficit that would require TPA. Recommend evaluation for any medical contributions and consider 24-hour observation in case he should deteriorate. 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
--- NOTE | 2020-06-25 14:28 | W.ED.NEUROSD ---
HPI - Neuro Symptoms/Deficit General: Chief Complaint: Neuro Symptoms/Deficit Stated Complaint: PT FEELS LIKE HAVING A STROKE Time Seen by Provider: 06/25/20 13:04 History of Present Illness: HPI Narrative: The patient is a 70-year-old male with past medical history multiple TIAs, bilateral carotid endarterectomy, coronary artery disease with stents. He comes to the ER complaining of neurologic deficits. He says his right eye is dark and blurry which is usually his good eye, his right arm feels heavy, and he has had slurred speech. He initially says the symptoms started 2 hours ago however upon questioning he is not confident in this number and thinks it may be longer. Later he says he woke up at 830 with blurry vision in his right eye. 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 He initially says he missed 2 doses then says he missed 1 dose then he changed and said his doctor told him to stop taking the medication 2 days ago because it is no longer warranted. Initial NIH is 4 for dysarthria and blurred vision. Visual testing reveals vision is blurred but not lost and NIH is changed to 1 for only dysarthria. Location: speech and right arm History of same: Yes Severity: mild Relieving factors: none Exacerbating factors: none Context: gradual onset Associated symptoms: Reports no associated symptoms; Deny chest pain or headache(s) Review of Systems General: Reports: 10 or more systems reviewed and unremarkable except in HPI and below Const: Denies: fatigue Eyes: Denies: change in vision, blurry vision or eye redness ENMT: Denies: throat pain, swelling of lips/tongue, ear or mastoid pain or nasal congestion Card: Denies: chest pain, palpitations, irregular heart rhythm, edema, dyspnea on exertion or orthopnea Resp: Denies: dyspnea, productive cough or non-productive cough GI: Denies: abdominal pain, diarrhea or GI cramping : Denies: flank pain, urinary frequency or urinary urgency Musc: Denies: neck pain, back pain, extremity pain, joint pain, joint redness, limited range of motion or muscle weakness Skin/Breast: Denies: rash, pruritus, erythema, skin pain or skin tenderness Neuro: Denies: headache(s), numbness in extremities, weakness in extremities, sensory changes, difficulty walking, dizziness, confusion or Slurred speech present Psych: Denies: anxiety or depression Endo: Denies: polyuria All/Imm: Denies: urticaria, throat swelling or tongue swelling PFSH ED PFSH: Medical History (Updated 06/25/20 @ 14:35 by Srini Foreman MD) Carotid stenosis, bilateral History of left common carotid artery stent placement Postop carotid endarterectomy surveillance, encounter for Stridor Vocal cord paralysis, unilateral complete Family History Other CAD (coronary artery disease) Cancer Diabetes Social History Smoking and tobacco status: former smoker Physical Exam Const: COMMON NORMALS: no acute distress, average body habitus, patient oriented x3, no limitations, healthy appearing, alert and well nourished GENERAL APPEARANCE: cooperative, comfortable, well kempt and well developed ORIENTATION/CONSCIOUSNESS: Yes awake, Yes oriented to person, Yes oriented to place and Yes oriented to time HENMT: COMMON NORMALS: normocephalic, external ears normal and Normal external nose present HEAD & SCALP: normal to inspection and normocephalic NOSE: Normal external nose present EXTERNAL EAR: Yes external ears normal MOUTH: Normal oral and palatal mucosa present THROAT: posterior oropharynx normal Eye: COMMON NORMALS: Equal, round and reactive pupils present and EOMs intact bilaterally GENERAL EYE: appearance normal, both eyes and all related structures PUPIL: Yes Equal, round and reactive pupils present OTHER: Visual exam he is able to see out of his right eye but has severely blurred vision and is not able to read fine print at any distance. He is able to make out gross shapes. That is a change she says normally that eye is his good eye. Left eye normal able to read fine print. H test normal. Neck/C-Spine: COMMON NORMALS: full ROM, no lymphadenopathy, no meningeal signs and no JVD GENERAL: Yes normal visual inspection Lymph: LYMPHATIC: no lymphadenopathy noted Chest: COMMONS NORMALS: normal inspection of the chest and normal palpation of entire chest wall Resp: COMMON NORMALS: normal respiratory effort, No retractions, No use of accessory muscles, clear to auscultation bilaterally and percussion normal EFFORT & INSPECTION: Yes able to speak in complete sentences AUSCULTATION: clear to auscultation bilaterally PERCUSSION: percussion normal Cardio: COMMON NORMALS: no JVD, regular rate, regular rhythm, S1 normal heart sound present, S2 normal heart sound present and Peripheral pulses 2+ throughout RATE: regular rate RHYTHM: regular rhythm HEART SOUNDS: S1 normal heart sound present and S2 normal heart sound present PERIPHERAL PULSES: Peripheral pulses 2+ throughout GI: COMMON NORMALS: Normal to inspection, nondistended, normoactive bowel sounds present, Soft to palpation, non-tender and no masses INSPECTION: Yes normal to inspection PALPATION: Yes Soft to palpation : COMMON NORMALS: Yes no CVA tenderness BLADDER/KIDNEY EXAM: Yes no CVA tenderness Back/Pelvis: COMMON NORMALS: no CVA tenderness, thoracic and lumbar spine normal to inspection, no thoracic nor lumbar tenderness and thoraco-lumbar ROM normal Extremity: COMMON NORMALS: normal to inspection, full ROM, capillary refill normal, no joint enlargement and no pedal edema GENERAL: Yes normal exam except as noted Neuro: COMMON NORMALS: patient oriented x3, CN's II-XII intact bilaterally, moves all extremities, no focal motor deficits, no sensory deficits noted and gait normal SENSORIUM/ORIENTATION: Yes alert, Yes oriented to person, Yes oriented to place and Yes oriented to time MENINGEAL SIGNS: Yes no meningeal signs COORDINATION/BALANCE: [id number] test normal COORDINATION: [id number] test normal OTHER: Patient presents with dysarthria. He does have vocal cord paralysis from a endarterectomy on the left side. He says he is definitely having more slurred speech and his family member at home noted his speech was significantly worse than usual. Psych: COMMON NORMALS: mental status grossly normal, Normal thought process present, cooperative and normal affect APPEARANCE: Yes well kempt ATTITUDE: Yes calm MOOD & AFFECT: Yes anxious THOUGHT PROCESS: Normal thought process present Skin: COMMON NORMALS: no rashes or lesions noted GENERAL SKIN EXAM: no rashes or lesions noted Course Vital Signs: Vital signs: Vital Signs Temperature 97.7 F 06/25/20 13:00 Pulse Rate 81 06/25/20 14:04 Respiratory Rate 26 H 06/25/20 14:04 Blood Pressure 210/102 06/25/20 14:04 Pulse Oximetry 97 06/25/20 14:04 MDM - Neuro Symptoms/Deficit MDM Narrative: Medical decision making narrative: This patient came in with right eye blurred vision and dysarthria. Initial NIH was 4 however it was changed to 1 with visual testing which she does have blurred vision but he is able to make a gross shapes. Dysarthria continues in the ED. He does have history of bilateral carotid endarterectomy and after he had the left side done he did get a vocal cord paralysis. His family member said his slurred speech is much worse than usual. The patient's history changes every time you talk to him. He initially says symptoms started 2 hours ago that he says much longer, then he says he woke up with right eye blurred vision which was his first symptom. Discussed with Dr. Choe who recommended no TPA. Also his Eliquis which she takes for a history of PE and DVT he initially said he missed 2 doses, then he says 1 dose, then he said his doctor told him to stop taking it because it was no longer indicated. He is also noncompliant with his other medications. Blood pressure has been severely elevated and recommended permissive hypertension based on possible CVA. Discussed with Dr. Kearney who accepts for observation to [facility] Lab Data: Labs: Lab Results 06/25/20 06/25/20 06/25/20 Range/Units 13:09 13:09 13:09 WBC 6.3 (4.0-10.0) 10^3/ uL RBC 4.49 (4.1-5.3) 10^6/u L Hgb 13.0 (11.7-16.6) g/dL Hct 40.4 L (42.0-52.0) % MCV 90.0 (80-94) fL MCH 29.0 (28.0-34.0) pg MCHC 32.2 (30.0-36.0) g/dL RDW 13.5 (12.1-15.1) % Plt Count 178 (130-400) 10^3/c mm MPV 9.7 (7.4-10.4) fL Neut % (Auto) 50.6 % Lymph % (Auto) 34.5 % [place] % (Auto) 11.7 % Eos % (Auto) 2.2 % Baso % (Auto) 0.5 % Neut # (Auto) 3.19 (1.8-7.7) 10^3/u L Lymph # (Auto) 2.2 (0.8-4.8) 10^3/u L [place] # (Auto) 0.7 (0.2-0.9) 10^3/u L Eos # (Auto) 0.1 (0.0-0.8) 10^3/u L Baso # (Auto) 0.0 (0.0-0.1) 10^3/u L Nucleated RBC % (a uto) 0 % Nucleated RBCs # 0.0 /100WBC PT 13.20 (12.1-14.9) SECO NDS INR 0.98 (0.8-1.2) APTT 30.2 (23.9-36.7) SECO NDS Sodium 140 (136-145) mmol/L Potassium 4.1 (3.5-5.1) mmol/L Chloride 104 (98-107) mmol/L Carbon Dioxide 27 (22-29) mmol/L Anion Gap 13.1 (5-19) BUN 18 (8-23) mg/dL Creatinine 1.2 (0.7-1.2) mg/dL GFR Calculation Not Reportable Glucose 86 (65-115) mg/dL POC Glucose (70-110) mg/dL Calculated Osmolal ity 291 (285-295) mOsm/k g Calcium 8.6 (8.5-10.5) mg/dL Total Bilirubin 1.4 H (0.15-1.2) mg/dL AST 14 (0-40) U/L ALT 8 (0-41) U/L Alkaline Phosphata se 74 (40-130) IU/L Troponin T Baselin e (0-15) ng/L NT-Pro-B Natriuret Pep (0-125) pg/mL Total Protein 6.4 L (6.6-8.7) g/dL Albumin 3.9 (3.5-5.2) g/dL Globulin 2.5 (1.3-4.6) g/dL Urine Color (Yellow) Urine Appearance (CLEAR) Urine pH (5-7) Ur Specific Gravit y (1.005-1.030) Urine Protein (Negative) Urine Glucose (UA) (Normal) Urine Ketones (Negative) Urine Blood (Negative) Urine Nitrate (Negative) Urine Bilirubin (Negative) Urine Urobilinogen (Negative) mg/dL Ur Leukocyte Gissel ase (Negative) Amorphous Sediment Ethyl Alcohol < 10 (0-10) mg/dL 06/25/20 06/25/20 06/25/20 Range/Units 13:09 13:09 13:27 WBC (4.0-10.0) 10^3/ uL RBC (4.1-5.3) 10^6/u L Hgb (11.7-16.6) g/dL Hct (42.0-52.0) % MCV (80-94) fL MCH (28.0-34.0) pg MCHC (30.0-36.0) g/dL RDW (12.1-15.1) % Plt Count (130-400) 10^3/c mm MPV (7.4-10.4) fL Neut % (Auto) % Lymph % (Auto) % [place] % (Auto) % Eos % (Auto) % Baso % (Auto) % Neut # (Auto) (1.8-7.7) 10^3/u L Lymph # (Auto) (0.8-4.8) 10^3/u L [place] # (Auto) (0.2-0.9) 10^3/u L Eos # (Auto) (0.0-0.8) 10^3/u L Baso # (Auto) (0.0-0.1) 10^3/u L Nucleated RBC % (a uto) % Nucleated RBCs # /100WBC PT (12.1-14.9) SECO NDS INR (0.8-1.2) APTT (23.9-36.7) SECO NDS Sodium (136-145) mmol/L Potassium (3.5-5.1) mmol/L Chloride (98-107) mmol/L Carbon Dioxide (22-29) mmol/L Anion Gap (5-19) BUN (8-23) mg/dL Creatinine (0.7-1.2) mg/dL GFR Calculation Glucose (65-115) mg/dL POC Glucose 129 H (70-110) mg/dL Calculated Osmolal ity (285-295) mOsm/k g Calcium (8.5-10.5) mg/dL Total Bilirubin (0.15-1.2) mg/dL AST (0-40) U/L ALT (0-41) U/L Alkaline Phosphata se (40-130) IU/L Troponin T Baselin e 9 (0-15) ng/L NT-Pro-B Natriuret Pep 190 H (0-125) pg/mL Total Protein (6.6-8.7) g/dL Albumin (3.5-5.2) g/dL Globulin (1.3-4.6) g/dL Urine Color (Yellow) Urine Appearance (CLEAR) Urine pH (5-7) Ur Specific Gravit y (1.005-1.030) Urine Protein (Negative) Urine Glucose (UA) (Normal) Urine Ketones (Negative) Urine Blood (Negative) Urine Nitrate (Negative) Urine Bilirubin (Negative) Urine Urobilinogen (Negative) mg/dL Ur Leukocyte Gissel ase (Negative) Amorphous Sediment Ethyl Alcohol (0-10) mg/dL 05/20/21 Range/Units 14:03 WBC (4.0-10.0) 10^3/ uL RBC (4.1-5.3) 10^6/u L Hgb (11.7-16.6) g/dL Hct (42.0-52.0) % MCV (80-94) fL MCH (28.0-34.0) pg MCHC (30.0-36.0) g/dL RDW (12.1-15.1) % Plt Count (130-400) 10^3/c mm MPV (7.4-10.4) fL Neut % (Auto) % Lymph % (Auto) % [place] % (Auto) % Eos % (Auto) % Baso % (Auto) % Neut # (Auto) (1.8-7.7) 10^3/u L Lymph # (Auto) (0.8-4.8) 10^3/u L [place] # (Auto) (0.2-0.9) 10^3/u L Eos # (Auto) (0.0-0.8) 10^3/u L Baso # (Auto) (0.0-0.1) 10^3/u L Nucleated RBC % (a uto) % Nucleated RBCs # /100WBC PT (12.1-14.9) SECO NDS INR (0.8-1.2) APTT (23.9-36.7) SECO NDS Sodium (136-145) mmol/L Potassium (3.5-5.1) mmol/L Chloride (98-107) mmol/L Carbon Dioxide (22-29) mmol/L Anion Gap (5-19) BUN (8-23) mg/dL Creatinine (0.7-1.2) mg/dL GFR Calculation Glucose (65-115) mg/dL POC Glucose (70-110) mg/dL Calculated Osmolal ity (285-295) mOsm/k g Calcium (8.5-10.5) mg/dL Total Bilirubin (0.15-1.2) mg/dL AST (0-40) U/L ALT (0-41) U/L Alkaline Phosphata se (40-130) IU/L Troponin T Baselin e (0-15) ng/L NT-Pro-B Natriuret Pep (0-125) pg/mL Total Protein (6.6-8.7) g/dL Albumin (3.5-5.2) g/dL Globulin (1.3-4.6) g/dL Urine Color Yellow (Yellow) Urine Appearance Clear (CLEAR) Urine pH 6.5 (5-7) Ur Specific Gravit y 1.010 (1.005-1.030) Urine Protein Trace (Negative) Urine Glucose (UA) Norm (Normal) Urine Ketones Negative (Negative) Urine Blood Neg (Negative) Urine Nitrate Negative (Negative) Urine Bilirubin Neg (Negative) Urine Urobilinogen Norm (Negative) mg/dL Ur Leukocyte Gissel ase Negative (Negative) Amorphous Sediment Not Reportable Ethyl Alcohol (0-10) mg/dL Discharge Plan Discharge Patient Disposition: Placed in Observation Admit Provider: Conor Nieto Clinical Impression: Acute CVA (cerebrovascular accident) Coding Level of Care Code ED Adoption Counselor for Carl Sanz
[2020-06-25 14:31] LABS: RBC Urine 0-4 /hpf (0-2); Renal Epithelial Cells Urine N /hpf
[2020-06-25 14:32] LABS: Add Urine Culture? No; Bacteria Urine TRACE /hpf
[2020-06-25 15:38] LABS: Amphetamines Screen Urine Negative (Negative); Barbiturates Screen Urine Negative (Negative); Benzodiazepines Screen Urine Negative (Negative); Cocaine Screen Urine Negative (Negative); Opiate Screen Urine Negative (Negative); PCP Screen Urine Negative (Negative); THC Screen Urine Negative (Negative)
[2020-06-25 16:19] LABS: Glucose Point of Care 116 mg/dL (70-110)
--- NOTE | 2020-06-25 17:09 | PC.NURSE ---
ELEVATED BLOOD PRESSURE REPORTED TO DR. DEUTSCH. NO ORDERS AT THIS TIME.
--- NOTE | 2020-06-25 17:31 | P.HP_ITS ---
Providers/Chief Complaint Admitting Physician: Conor Nieto MD Primary Care Provider: Nelida Houser DO Chief Complaint: PT FEELS LIKE HAVING A STROKE History of Present Illness Robert Brooks SR is a 70 year old male with history of bilateral carotid artery disease, TIA, post bilateral carotid endarterectomy, 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 Patient states his symptoms have been persistent. He says he did not had any similar symptoms before he went to bed last night but did have mild difficulty in breathing and felt as though there is a heavy weight on his chest during the whole night. He denies any difficulty in breathing, cough, chest pain at baseline at rest or on exertion recently. He does not use any oxygen at home. He states there has been no changes in his medication and he has been taking his medications regularly with last dose of apixaban yesterday afternoon. Denies any nausea, vomiting, headache, dizziness, seizure-like activity, bowel or bladder accidents, fever, exposure to COVID-19. Patient states he had a fall around [place] last year and at that time he landed on his tailbone since then he has been feeling his legs very weak. Both legs are weak. He has had 3 or 4 falls since then. No new limb weakness today. In the ER patient was seen by Dr. Choe and it was decided that he is not a good candidate for TPA. Blood work in the ER white count 6.3, hemoglobin of 13,000, INR of 0.98, sodium of 140, creatinine of 1.2, bilirubin of 1.4,, AST/ALT of 14/8, UA negative for any signs of infection, toxicology negative with negative alcohol, imaging results as before below. Review of Systems General: Reports: 10 or more systems reviewed and unremarkable except in HPI and below Const: Denies: fever(s), chills, body aches, change in appetite, change in weight, malaise, night sweats, diaphoresis, change in sleep pattern, daytime sleepiness or snoring Eyes: Denies: change in vision, blurry vision, photophobia, eye discomfort or eye discharge ENMT: Denies: throat pain, enlarged tonsils, hoarseness, mouth pain, oral sores, dry mouth, tinnitus, nasal congestion or post nasal drip Card: Denies: chest pain, palpitations, irregular heart rhythm, edema, swelling of feet/ankles, lightheadedness, syncope, pre-syncope, dyspnea on exertion, orthopnea, leg pain with exertion or acrocyanosis Resp: Denies: dyspnea, productive cough, non-productive cough, wheezing, stridor, pain on inspiration, change in phlegm color, hemoptysis or chest congestion GI: Denies: abdominal pain, nausea, vomiting, hematemesis, coffee ground emesis, dysphagia, heartburn, diarrhea, constipation, bloating, GI cramping, change in bowel habits, pain on defecation, hematochezia or melena : Denies: flank pain, difficulty urinating, dysuria, urinary frequency, urinary urgency, urinary hesitancy, urinary dribbling, difficulty starting urination, change in urine stream, nocturia or hematuria Musc: Denies: neck pain, back pain, extremity pain, joint pain, joint swelling, joint redness, joint stiffness or limited range of motion Neuro: Denies: headache(s), numbness in extremities, weakness in extremities, sensory changes, lack of coordination, difficulty walking, frequent falls, dizziness, vertigo, confusion, Slurred speech present, difficulty communicating thoughts or seizure-like activity Psych: Denies: anxiety, depression, mood swings, panic attacks, hopelessness or irritability Endo: Denies: polyuria, polydipsia, tired all the time, cold intolerance, excessive sweating, flushing or heat intolerance Duke/Lymph: Denies: easy bruising or easy bleeding All/Imm: Denies: tongue swelling, facial swelling or acute wheezing Medications/Allergies Home Medications Medication Instructions Recorded Confirmed Last Taken Type apixaban 5 mg tablet 5 mg PO BID 02/11/19 06/25/20 06/23/20 History buspirone 10 mg tablet 10 mg PO BID 02/11/19 06/25/20 06/24/20 History hydrocodone 5 mg-acetaminophen 325 1 tab PO Q6H PRN 02/11/19 06/25/20 04/29/19 History mg tablet tamsulosin 0.4 mg capsule 0.4 mg PO DAILY cap 02/11/19 06/25/20 04/29/19 History tizanidine 4 mg capsule 4 mg PO Q8H PRN 02/11/19 06/25/20 04/29/19 History escitalopram oxalate [Lexapro] 10 mg PO DAILY 03/24/19 06/25/20 06/24/20 History furosemide 20 mg PO DAILY 03/24/19 06/25/20 06/24/20 History aspirin [Aspir-81] 81 mg PO DAILY 04/29/19 06/25/20 06/24/20 History gabapentin 300 mg PO BEDTIME 06/25/20 06/25/20 06/24/20 History levothyroxine 125 mcg PO DAILY 06/25/20 06/25/20 06/24/20 History Allergies Allergy/AdvReac Type Severity Reaction Status Date / Time doxycycline Allergy dermatitis Verified 03/05/20 11:55 famotidine Allergy unknown Verified 03/05/20 11:55 ketorolac [From Toradol] Allergy unknown Verified 03/05/20 11:55 meperidine [From Demerol] Allergy hives Verified 03/05/20 11:55 short of breath tetracycline Allergy ALGY-Rash Verified 03/05/20 11:55 tramadol Allergy anaphylaxis Verified 03/05/20 11:55 PFSH Acute PFSH: Medical History Carotid stenosis, bilateral Carpal tunnel syndrome of right wrist CHF (congestive heart failure) Cyst (solitary) of breast Cyst in hand Dyslipidemia History of left common carotid artery stent placement Hypertension Hypothyroidism Joint pain Palpitations Postop carotid endarterectomy surveillance, encounter for Pulmonary emboli Renal insufficiency Situational depression Stridor Varicose veins of lower extremity Vocal cord paralysis, unilateral complete Surgical History H/O knee surgery History of appendectomy S/P cholecystectomy Family History Other CAD (coronary artery disease) Cancer Diabetes Social History Smoking and tobacco status: former smoker Vitals/I&O/Wt Last Vital Signs Temp 98.0 F 06/25/20 16:23 Pulse 76 06/25/20 17:08 Resp 18 06/25/20 17:08 BP 183/89 06/25/20 17:08 Pulse Ox 98 06/25/20 17:08 Weight last 48 hrs Weight 108.862 kg Physical Exam Narrative: EXAM NARRATIVE: General: No acute distress, AO x3, NIH score 2 HEENT: PERRLA, pupils bilaterally equal and reactive Chest: Normal vesicular breath sounds, no added sounds, equal good air entry bilaterally CVS: S1-S2 regular, soft pansystolic murmur at apex, no tachycardia, no gallops, no rubs Abdomen: Soft, nontender, no organomegaly, bowel sounds present Neuro: No focal deficits, no facial deformity, AO x3, power 5/5 in all limbs Data : 06/25/20 13:09 06/25/20 13:09 Other Labs: Laboratory Results WBC 6.3 10^3/uL (4.0-10.0) 06/25/20 13:09 RBC 4.49 10^6/uL (4.1-5.3) 06/25/20 13:09 Hgb 13.0 g/dL (11.7-16.6) 06/25/20 13:09 Hct 40.4 % (42.0-52.0) L 06/25/20 13:09 MCV 90.0 fL (80-94) 06/25/20 13:09 MCH 29.0 pg (28.0-34.0) 06/25/20 13:09 MCHC 32.2 g/dL (30.0-36.0) 06/25/20 13:09 RDW 13.5 % (12.1-15.1) 06/25/20 13:09 Plt Count 178 10^3/cmm (130-400) 06/25/20 13:09 MPV 9.7 fL (7.4-10.4) 06/25/20 13:09 Neut % (Auto) 50.6 % 06/25/20 13:09 Lymph % (Auto) 34.5 % 06/25/20 13:09 [place] % (Auto) 11.7 % 06/25/20 13:09 Eos % (Auto) 2.2 % 06/25/20 13:09 Baso % (Auto) 0.5 % 06/25/20 13:09 Neut # (Auto) 3.19 10^3/uL (1.8-7.7) 06/25/20 13:09 Lymph # (Auto) 2.2 10^3/uL (0.8-4.8) 06/25/20 13:09 [place] # (Auto) 0.7 10^3/uL (0.2-0.9) 06/25/20 13:09 Eos # (Auto) 0.1 10^3/uL (0.0-0.8) 06/25/20 13:09 Baso # (Auto) 0.0 10^3/uL (0.0-0.1) 06/25/20 13:09 Nucleated RBC % (auto) 0 % 06/25/20 13:09 Nucleated RBCs # 0.0 /100WBC 06/25/20 13:09 PT 13.20 SECONDS (12.1-14.9) 06/25/20 13:09 INR 0.98 (0.8-1.2) 06/25/20 13:09 APTT 30.2 SECONDS (23.9-36.7) 06/25/20 13:09 Sodium 140 mmol/L (136-145) 06/25/20 13:09 Potassium 4.1 mmol/L (3.5-5.1) 06/25/20 13:09 Chloride 104 mmol/L (98-107) 06/25/20 13:09 Carbon Dioxide 27 mmol/L (22-29) 06/25/20 13:09 Anion Gap 13.1 (5-19) 06/25/20 13:09 BUN 18 mg/dL (8-23) 06/25/20 13:09 Creatinine 1.2 mg/dL (0.7-1.2) 06/25/20 13:09 GFR Calculation Not Reportable 06/25/20 13:09 Glucose 86 mg/dL (65-115) 06/25/20 13:09 POC Glucose 116 mg/dL (70-110) H 06/25/20 16:14 Calculated Osmolality 291 mOsm/kg (285-295) 06/25/20 13:09 Calcium 8.6 mg/dL (8.5-10.5) 06/25/20 13:09 Total Bilirubin 1.4 mg/dL (0.15-1.2) H 06/25/20 13:09 AST 14 U/L (0-40) 06/25/20 13:09 ALT 8 U/L (0-41) 06/25/20 13:09 Alkaline Phosphatase 74 IU/L (40-130) 06/25/20 13:09 Troponin T Baseline 9 ng/L (0-15) 06/25/20 13:09 Troponin T 120 Minute 10.10 ng/L (0-15) 06/25/20 15:18 Delta Troponin T 1.10 ABS# (0-10) 06/25/20 15:18 NT-Pro-B Natriuret Pep 190 pg/mL (0-125) H 06/25/20 13:09 Total Protein 6.4 g/dL (6.6-8.7) L 06/25/20 13:09 Albumin 3.9 g/dL (3.5-5.2) 06/25/20 13:09 Globulin 2.5 g/dL (1.3-4.6) 06/25/20 13:09 Urine Color Yellow (Yellow) 06/25/20 14:03 Urine Appearance Clear (CLEAR) 06/25/20 14:03 Urine pH 6.5 (5-7) 06/25/20 14:03 Ur Specific [place] 1.010 (1.005-1.030) 06/25/20 14:03 Urine Protein Trace (Negative) 06/25/20 14:03 Urine Glucose (UA) Norm (Normal) 06/25/20 14:03 Urine Ketones Negative (Negative) 06/25/20 14:03 Urine Blood Neg (Negative) 06/25/20 14:03 Urine Nitrate Negative (Negative) 06/25/20 14:03 Urine Bilirubin Neg (Negative) 06/25/20 14:03 Urine Urobilinogen Norm mg/dL (Negative) 06/25/20 14:03 Ur Leukocyte Esterase Negative (Negative) 06/25/20 14:03 Urine RBC 0-4 /hpf (0-2) H 06/25/20 14:03 Urine WBC None /hpf (0-5) 06/25/20 14:03 Ur Squamous Epith Cells None /hpf (0-5) 06/25/20 14:03 Ur Transition Epith Cell None /hpf 06/25/20 14:03 Ur Renal Epithelial Cell N /hpf 06/25/20 14:03 Amorphous Sediment Not Reportable 06/25/20 14:03 Urine Bacteria Trace /hpf (NONE) 06/25/20 14:03 Urine Opiates Screen Negative ng/mL (Negative) 06/25/20 14:03 Ur Barbiturates Screen Negative ng/mL (Negative) 06/25/20 14:03 Ur Phencyclidine Scrn Negative ng/mL (Negative) 06/25/20 14:03 Ur Amphetamines Screen Negative ng/mL (Negative) 06/25/20 14:03 U Benzodiazepines Scrn Negative ng/mL (Negative) 06/25/20 14:03 Urine Cocaine Screen Negative ng/mL (Negative) 06/25/20 14:03 U Marijuana (THC) Screen Negative ng/mL (Negative) 06/25/20 14:03 Ethyl Alcohol < 10 mg/dL (0-10) 06/25/20 13:09 Impressions Chest X-Ray 06/25/20 13:02 IMPRESSION: There are no acute concerning abnormalities. Head CT 06/25/20 13:02 IMPRESSION: 1. No evidence of intracranial hemorrhage or mass effect. 2. Mild small vessel changes. Mild parenchymal volume loss. 3. No acute intracranial findings. Notified Srini Foreman MD at 06/25/2020 1:39 PM. Head/Neck CTA 06/25/20 13:02 IMPRESSION: 1. Prior postoperative changes bilateral carotid endarterectomies. Mild stenosis right proximal ICA measuring less than 50%. 2. No significant left ICA stenosis. Mild stenosis distal left common carotid artery is unchanged. 3. Left vertebral artery origin stent is new from previous. Both vertebral arteries are patent to the basilar junction. 4. Mild intracranial cavernous carotid calcification. No flow-limiting intracranial stenosis. 5. Hypoplastic right A1 segment. 6. Chronic lacunar infarct right caudate. Notified Srini Foreman MD at 06/25/2020 1:53 PM. A&P Assessment and plan (1) Acute CVA (cerebrovascular accident): Status: Acute (2) TIA (transient ischemic attack): Status: Acute (3) Bilateral carotid artery disease: Status: Acute (4) Postop carotid endarterectomy surveillance, encounter for: Status: Acute (5) Hypertension: Status: Acute (6) Hypothyroidism: Status: Acute Additional A&P Information Acute CVA in setting of history of bilateral carotid artery disease, post carotid endarterectomy on the right: Not a good candidate for TPA as is a questionable time of onset for right-sided weakness and is not clear when he took his last Eliquis. PT/OT/ST evaluation. MRI brain. Continue with aspirin, Eliquis, start patient on statin 40 mg daily for now. Check lipid panel, A1c. Permissive hyper tension. Will treat blood pressures of more than 220 mmHg with labetalol. Frequent neuro checks. Fall, seizure precautions. Hypertension: Permissive hypertension for now. Hold antihypertensives. CHF: No echocardiogram in the system. Check proBNP, check echocardiogram. Do not have any signs of exacerbation at present. Hypothyroidism: Continue home dose of levothyroxine. Check TSH. -Check iron panel, ferritin. CODE STATUS: Limited resuscitation. Patient is okay with chest compression for 30 minutes and if he is not associated he would want to stop the chest compressions as well. He does not want any kind of life support including mechanical ventilation. Eliquis will help with DVT prophylaxis. Cardiac diet. Continue other chronic medications. Will change medications as per clinical pi cture going forward. Attestations Medical Necessity Statement*: Requires admission for less than 2 midnights under observation in setting of acute CVA. Time Spent in Patient Care: Greater than 35 minutes (>than 50% of time spent in counselling and/or direct pt care on unit) . Coding Level of Care Code Acute [employer] for [employer] Diagnoses Acute CVA (cerebrovascular accident) I63.9 TIA (transient ischemic attack) G45.9 Bilateral carotid artery disease I77.9 Postop carotid endarterectomy surveillance, encounter for Z48.812 Hypertension I10 Hypothyroidism E03.9
[2020-06-25] MEDS: haloperidol inj 5 mg/mL INJ 1 mL 1 MG IV (18:26)
--- NOTE | 2020-06-25 18:36 | PC.NURSE ---
PATIENT TAKEN TO MRI VIA STRETCHER WITH [facility].
--- NOTE | 2020-06-25 20:11 | PC.NURSE ---
BP 231/103, Dr Huertas notified t.o. given for Hydralizine 10 mg IVP q2 Hrs PRN systolic greater than 200
[2020-06-25 20:19] LABS: Troponin 5 6HR 8.64 ng/L (0-15)
[2020-06-25 20:22] LABS: Troponin 5 6HR Delta -0.36 ng/L (0-12)
[2020-06-25 20:29] LABS: NT Pro B Type Natriuretic Pept 176 pg/mL (0-125); Thyroid Stimulating Hormone 9.78 uIU/mL (0.27-4.20)
[2020-06-25] MEDS: gabapentin 300 mg Capsule PO (20:37)
[2020-06-25] MEDS: atorvastatin 40 mg Tablet PO (20:37)
[2020-06-25] MEDS: hyDRALAzine 20 mg/mL INJ 1 mL 10 MG IVP (20:38)
[2020-06-25] MEDS: BuSPIRONE 10 mg Tablet PO (20:38)
[2020-06-25] MEDS: apixaban 5 mg Tablet PO (20:38)
[2020-06-25] MEDS: HYDROcodone-acetaminophen 5-325 mg Tablet 1 TAB PO (20:39)
[2020-06-25 21:26] LABS: Iron 48 ug/dL (59-158)
[2020-06-25 21:27] LABS: Percent Saturation 15.5 % (20-50); Total Iron Binding Capacity 308 mcg/dl; Unsaturated Iron Binding 260 ug/dL (112-347)
[2020-06-26] VITALS (8 sets, daily range): BP systolic 128–166; BP diastolic 63–77; PULSE 69–112; RESP 14–24; TEMP 36.6–36.7; O2SAT 93–97
[2020-06-26 03:52] LABS: Basophils % 0.4 %; Eosinophils # 0.2 10^3/uL (0.0-0.8); Eosinophils % 3.3 %; Hemoglobin 12.1 g/dL (11.7-16.6); Lymphocytes # 1.6 10^3/uL (0.8-4.8); Lymphocytes % 35.5 %; Mean Corpuscular HGB Conc 32.7 g/dL (30.0-36.0); Mean Corpuscular Hemoglobin 29.2 pg (28.0-34.0); Mean Corpuscular Volume 89.4 fL (80-94); Mean Platelet Volume 9.8 fL (7.4-10.4); Monocytes # 0.5 10^3/uL (0.2-0.9); Neutrophils # 2.25 10^3/uL (1.8-7.7); Neutrophils % 49.4 %; Nucleated Red Blood Cells % 0 %; Platelet Count 157 10^3/cmm (130-400); Red Blood Count 4.14 10^6/uL (4.1-5.3); Red Cell Distribution Width 13.4 % (12.1-15.1); White Blood Count 4.6 10^3/uL (4.0-10.0)
[2020-06-26 04:09] LABS: INR 1.11 (0.8-1.2)
[2020-06-26 04:21] LABS: Alanine Aminotransferase 6 U/L (0-41); Albumin Level 3.1 g/dL (3.5-5.2); Alkaline Phosphatase 57 IU/L (40-130); Anion Gap 9.6 (5-19); Aspartate Amino Transferase 12 U/L (0-40); Blood Urea Nitrogen 16 mg/dL (8-23); Calcium 8.4 mg/dL (8.5-10.5); Carbon Dioxide 28 mmol/L (22-29); Chloride 105 mmol/L (98-107); Cholesterol 147 mg/dL (0-200); Globulin 2.9 g/dL (1.3-4.6); Glucose 130 mg/dL (65-115); HDL Cholesterol 35 mg/dL (60-100); LDL Cholesterol Calculated 90 mg/dL (50-129); Magnesium 2.1 mg/dL (1.7-2.3); Osmolality Calculated 291 mOsm/kg (285-295); Phosphorus 3.7 mg/dL (2.5-4.5); Potassium 3.6 mmol/L (3.5-5.1); Sodium 139 mmol/L (136-145); Total Bilirubin 1.3 mg/dL (0.15-1.2); Triglycerides 112 mg/dL (0-150); VLDL Cholestrol Calculation 22 mg/dL (0-30)
[2020-06-26 04:30] LABS: Estmated Average Glucose 105; Hemoglobin A1C 5.3 % (4.0-6.0)
--- NOTE | 2020-06-26 06:24 | PC.NURSE ---
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
[2020-06-26] MEDS: BuSPIRONE 10 mg Tablet PO (09:13)
[2020-06-26] MEDS: aspirin 81 mg EC Tablet PO (09:13)
[2020-06-26] MEDS: apixaban 5 mg Tablet PO (09:13)
[2020-06-26] MEDS: escitalopram 10 mg Tablet PO (09:13)
[2020-06-26] MEDS: levothyroxine 125 mcg Tablet PO (09:13)
[2020-06-26] MEDS: tamsulosin 0.4 mg Capsule PO (09:13)
[2020-06-26] MEDS: carvedilol 6.25 mg Tablet PO (12:02)
--- NOTE | 2020-06-26 12:13 | PC.CHAP ---
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 [] Patient/Family/Request visit [] Outpatient visit [] Follow-up visit [] Physician referral [] Code/Alert [xx] Routine visit [] Staff referral [] Actively dying [] Patient sleeping [] Family support [] [] Out of room [] Palliative care [] [] Receiving care in room [] Pre-surgical visit [] Trauma [] Long length of stay [] ICU visit [] Other: Relational/Emotional Strength [x] Patient feels connected with others/family/visitors/staff [] Distress [] Loneliness/isolation [] Abandonment Spirituality of Patient [xx] Person of Izzy [xx] Attends Mandaen of their Izzy [xx] Believes in Prayer [xx] Reads Bible or Adventism materials [] There are Spiritual issues to be addressed 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 Machine 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 Interventions [xx] Prayer [xx] Active listening [xx] Non-anxious presence [] Spiritual/emotional support [] Crisis/trauma care [] Spiritual counseling [] Bereavement support [] Provided bereavement packet [] Provided Bible/devotional materials [] Provided toy/stuffed animal, coloring book to patient or family member [] Provided Communion [] Anointing/[place] [] Salvation [xx] Completed spiritual assessment [] Other: Impact on Illness or Injury [] Angry [] Fearful [] Anxious [] Often cries [] Exhaustion [] Unable to work [] Unable to attend faith [] Unable to walk/stand [] Unable to read [] Unable to drive [] Unable to eat/drink [] Unable to sleep [] Unable to be with family [] Patient intubated [] Other: Summary Patient is strong [employer] who wanted to talk about his izzy experiences which were very interesting. He is a great conversationalist and a delight to talk with. Time spent with patient 14 minutes
--- NOTE | 2020-06-26 12:25 | PC.OT ---
Occupational therapy screen completed with patient. He demonstrated independence in functional tasks and is at reported prior level of function. No further Occupational therapy indicated at this time.
--- NOTE | 2020-06-26 12:29 | P.DS_ITS ---
Discharge Providers Date of Admission: 06/25/20 14:20 Date of Discharge: June 26, 2020 Attending Provider at Admission: Conor Nieto MD Attending Provider at Discharge: Conor Nieto MD Consults: Neurology: Dr. Choe Primary Care Provider: Nelida Spence DO Diagnoses at Discharge Discharge Diagnosis (1) Acute CVA (cerebrovascular accident): Status: Acute (2) TIA (transient ischemic attack): Status: Acute (3) Bilateral carotid artery disease: Status: Acute (4) Postop carotid endarterectomy surveillance, encounter for: Status: Acute (5) Hypertension: Status: Acute (6) Hypothyroidism: Status: Acute Reason for Visit Reason for Visit: PT FEELS LIKE HAVING A STROKE Hospital Course Hospital Course Robert Brooks SR is a 70 year old male with history of bilateral carotid a rtery disease, TIA, post bilateral carotid endarterectomy, 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 Patient states his symptoms have been persistent. He says he did not had any similar symptoms before he went to bed last night but did have mild difficulty in breathing and felt as though there is a heavy weight on his chest during the whole night. He denies any difficulty in breathing, cough, chest pain at baseline at rest or on exertion recently. He does not use any oxygen at home. He states there has been no changes in his medication and he has been taking his medications regularly with last dose of apixaban yesterday afternoon. Denies any nausea, vomiting, headache, dizziness, seizure-like activity, bowel or bladder accidents, fever, exposure to COVID-19. Patient states he had a fall around [place] last year and at that time he landed on his tailbone since then he has been feeling his legs very weak. Both legs are weak. He has had 3 or 4 falls since then. No new limb weakness today. In the ER patient was seen by Dr. Choe and it was decided that he is not a good candidate for TPA. Blood work in the ER white count 6.3, hemoglobin of 13,000, INR of 0.98, sodium of 140, creatinine of 1.2, bilirubin of 1.4,, AST/ALT of 14/8, UA negative for any signs of infection, toxicology negative with negative alcohol, imaging results as before below. Patient was admitted to the hospital with concerns for TIA. He did not have any similar events during hospitalization. MRI was done. During hospitalization he was found to have elevated blood pressures for which his antihypertensives were adjusted. TSH was found to be on the higher side for which free T3 and free T4 has been sent. Patient is advised to monitor his blood pressures at home and maintain a blood pressure diary and follow-up with his primary care provider and bacteriologist medical within 2 weeks for further adjustments of antihypertensives. He is also advised to follow-up with Dr. Choe from neurology. He is to continue taking his Eliquis and aspirin. He is also started on a statin. Physical Exam Narrative: EXAM NARRATIVE: General: No acute distress, AO x3, NIH score 2 HEENT: PERRLA, pupils bilaterally equal and reactive Chest: Normal vesicular breath sounds, no added sounds, equal good air entry bilaterally CVS: S1-S2 regular, soft pansystolic murmur at apex, no tachycardia, no gallops, no rubs Abdomen: Soft, nontender, no organomegaly, bowel sounds present Neuro: No focal deficits, no facial deformity, AO x3, power 5/5 in all limbs Discharge Data Data Completed and Pending: Completed Studies During Hospitalization Category Date Time Status CT angio headneck * [id number] Stat Cat Scan 06/25/20 13:[address] head wo con* [id number] Stat Cat Scan 06/25/20 13:02 Completed XR chest 1V clara ble [id number] Stat Exams 06/25/20 13:02 Completed MR head wo con* [id number] Urgent MRI 06/25/20 14:19 [place] [id number] Urgent Ultrasound 06/25/20 13:47 Completed Pending at discharge Category Date Time Status Free T4 Free Thyr oxine Routine Lab 06/26/20 03:30 Received T3 Free Routine Lab 06/26/20 03:30 Received CV echo complete* [id number] Routine Ultrasound 06/26/20 17:32 Taken Labs from last 24 hours 06/26/20 06/26/20 06/26/20 03:30 03:30 03:30 WBC RBC Hgb Hct MCV MCH MCHC RDW Plt Count MPV Neut % (Auto) Lymph % (Auto) [place] % (Auto) Eos % (Auto) Baso % (Auto) Neut # (Auto) Lymph # (Auto) [place] # (Auto) Eos # (Auto) Baso # (Auto) Nucleated RBC % (a uto) Nucleated RBCs # PT 14.60 INR 1.11 APTT Sodium Potassium Chloride Carbon Dioxide Anion Gap BUN Creatinine GFR Calculation Glucose POC Glucose Estimat Average Gl ucose 105 Hemoglobin A1c 5.3 Calculated Osmolal ity Calcium Phosphorus Magnesium Iron TIBC % Saturation Unsat Iron Binding Total Bilirubin AST ALT Alkaline Phosphata se Troponin T Baselin e Troponin T 120 Min [place] Delta Troponin T Troponin T Hi Sens 6Hr Troponin T Hi Sens 6Hr Delta NT-Pro-B Natriuret Pep Total Protein Albumin Globulin Triglycerides Cholesterol LDL Cholesterol, C alc Total VLDL Cholest gelcaio HDL Cholesterol Cholesterol/HDL Ra linda TSH Free T4 Pending Free T3 Pending Urine Color Urine Appearance Urine pH Ur Specific Gravit y Urine Protein Urine Glucose (UA) Urine Ketones Urine Blood Urine Nitrate Urine Bilirubin Urine Urobilinogen Ur Leukocyte Gissel ase Urine RBC Urine WBC Ur Squamous Epith Cells Ur Transition Epit h Cell Ur Renal Epithelia l Cell Amorphous Sediment Urine Bacteria Urine Opiates Scre en Ur Barbiturates Sc reen Ur Phencyclidine S crn Ur Amphetamines Sc reen U Benzodiazepines Scrn Urine Cocaine Scre en U Marijuana (THC) Screen Ethyl Alcohol 06/26/20 06/26/20 06/25/20 03:30 03:30 19:53 WBC 4.6 RBC 4.14 Hgb 12.1 Hct 37.0 L MCV 89.4 MCH 29.2 MCHC 32.7 RDW 13.4 Plt Count 157 MPV 9.8 Neut % (Auto) 49.4 Lymph % (Auto) 35.5 [place] % (Auto) 11.0 Eos % (Auto) 3.3 Baso % (Auto) 0.4 Neut # (Auto) 2.25 Lymph # (Auto) 1.6 [place] # (Auto) 0.5 Eos # (Auto) 0.2 Baso # (Auto) 0.0 Nucleated RBC % (a uto) 0 Nucleated RBCs # 0.0 PT INR APTT Sodium 139 Potassium 3.6 Chloride 105 Carbon Dioxide 28 Anion Gap 9.6 BUN 16 Creatinine 1.0 GFR Calculation Not Reportable Glucose 130 H POC Glucose Estimat Average Gl ucose Hemoglobin A1c Calculated Osmolal ity 291 Calcium 8.4 L Phosphorus 3.7 Magnesium 2.1 Iron TIBC % Saturation Unsat Iron Binding Total Bilirubin 1.3 H AST 12 ALT 6 Alkaline Phosphata se 57 Troponin T Baselin e Troponin T 120 Min [place] Delta Troponin T Troponin T Hi Sens 6Hr Troponin T Hi Sens 6Hr Delta NT-Pro-B Natriuret Pep 176 H Total Protein 6.0 L Albumin 3.1 L Globulin 2.9 Triglycerides 112 Cholesterol 147 LDL Cholesterol, C alc 90 Total VLDL Cholest gelacio 22 HDL Cholesterol 35 L Cholesterol/HDL Ra linda 4.20 TSH 9.78 H Free T4 Free T3 Urine Color Urine Appearance Urine pH Ur Specific Gravit y Urine Protein Urine Glucose (UA) Urine Ketones Urine Blood Urine Nitrate Urine Bilirubin Urine Urobilinogen Ur Leukocyte Gissel ase Urine RBC Urine WBC Ur Squamous Epith Cells Ur Transition Epit h Cell Ur Renal Epithelia l Cell Amorphous Sediment Urine Bacteria Urine Opiates Scre en Ur Barbiturates Sc reen Ur Phencyclidine S crn Ur Amphetamines Sc reen U Benzodiazepines Scrn Urine Cocaine Scre en U Marijuana (THC) Screen Ethyl Alcohol 06/25/20 06/25/20 06/25/20 19:53 19:53 16:14 WBC RBC Hgb Hct MCV MCH MCHC RDW Plt Count MPV Neut % (Auto) Lymph % (Auto) [place] % (Auto) Eos % (Auto) Baso % (Auto) Neut # (Auto) Lymph # (Auto) [place] # (Auto) Eos # (Auto) Baso # (Auto) Nucleated RBC % (a uto) Nucleated RBCs # PT INR APTT Sodium Potassium Chloride Carbon Dioxide Anion Gap BUN Creatinine GFR Calculation Glucose POC Glucose 116 H Estimat Average Gl ucose Hemoglobin A1c Calculated Osmolal ity Calcium Phosphorus Magnesium Iron 48 L TIBC 308 % Saturation 15.5 L Unsat Iron Binding 260 Total Bilirubin AST ALT Alkaline Phosphata se Troponin T Baselin e Troponin T 120 Min [place] Delta Troponin T Troponin T Hi Sens 6Hr 8.64 Troponin T Hi Sens 6Hr Delta -0.36 L NT-Pro-B Natriuret Pep Total Protein Albumin Globulin Triglycerides Cholesterol LDL Cholesterol, C alc Total VLDL Cholest gelacio HDL Cholesterol Cholesterol/HDL Ra linda TSH Free T4 Free T3 Urine Color Urine Appearance Urine pH Ur Specific Gravit y Urine Protein Urine Glucose (UA) Urine Ketones Urine Blood Urine Nitrate Urine Bilirubin Urine Urobilinogen Ur Leukocyte Gissel ase Urine RBC Urine WBC Ur Squamous Epith Cells Ur Transition Epit h Cell Ur Renal Epithelia l Cell Amorphous Sediment Urine Bacteria Urine Opiates Scre en Ur Barbiturates Sc reen Ur Phencyclidine S crn Ur Amphetamines Sc reen U Benzodiazepines Scrn Urine Cocaine Scre en U Marijuana (THC) Screen Ethyl Alcohol 06/25/20 06/25/20 06/25/20 15:18 14:03 14:03 WBC RBC Hgb Hct MCV MCH MCHC RDW Plt Count MPV Neut % (Auto) Lymph % (Auto) [place] % (Auto) Eos % (Auto) Baso % (Auto) Neut # (Auto) Lymph # (Auto) [place] # (Auto) Eos # (Auto) Baso # (Auto) Nucleated RBC % (a uto) Nucleated RBCs # PT INR APTT Sodium Potassium Chloride Carbon Dioxide Anion Gap BUN Creatinine GFR Calculation Glucose POC Glucose Estimat Average Gl ucose Hemoglobin A1c Calculated Osmolal ity Calcium Phosphorus Magnesium Iron TIBC % Saturation Unsat Iron Binding Total Bilirubin AST ALT Alkaline Phosphata se Troponin T Baselin e Troponin T 120 Min [place] 10.10 Delta Troponin T 1.10 Troponin T Hi Sens 6Hr Troponin T Hi Sens 6Hr Delta NT-Pro-B Natriuret Pep Total Protein Albumin Globulin Triglycerides Cholesterol LDL Cholesterol, C alc Total VLDL Cholest gelacio HDL Cholesterol Cholesterol/HDL Ra linda TSH Free T4 Free T3 Urine Color Yellow Urine Appearance Clear Urine pH 6.5 Ur Specific Gravit y 1.010 Urine Protein Trace Urine Glucose (UA) Norm Urine Ketones Negative Urine Blood Neg Urine Nitrate Negative Urine Bilirubin Neg Urine Urobilinogen Norm Ur Leukocyte Gissel ase Negative Urine RBC 0-4 H Urine WBC None Ur Squamous Epith Cells None Ur Transition Epit h Cell None Ur Renal Epithelia l Cell N Amorphous Sediment Not Reportable Urine Bacteria Trace Urine Opiates Scre en Negative Ur Barbiturates Sc reen Negative Ur Phencyclidine S crn Negative Ur Amphetamines Sc reen Negative U Benzodiazepines Scrn Negative Urine Cocaine Scre en Negative U Marijuana (THC) Screen Negative Ethyl Alcohol 06/25/20 06/25/20 06/25/20 13:27 13:09 13:09 WBC RBC Hgb Hct MCV MCH MCHC RDW Plt Count MPV Neut % (Auto) Lymph % (Auto) [place] % (Auto) Eos % (Auto) Baso % (Auto) Neut # (Auto) Lymph # (Auto) [place] # (Auto) Eos # (Auto) Baso # (Auto) Nucleated RBC % (a uto) Nucleated RBCs # PT INR APTT Sodium Potassium Chloride Carbon Dioxide Anion Gap BUN Creatinine GFR Calculation Glucose POC Glucose 129 H Estimat Average Gl ucose Hemoglobin A1c Calculated Osmolal ity Calcium Phosphorus Magnesium Iron TIBC % Saturation Unsat Iron Binding Total Bilirubin AST ALT Alkaline Phosphata se Troponin T Baselin e 9 Troponin T 120 Min [place] Delta Troponin T Troponin T Hi Sens 6Hr Troponin T Hi Sens 6Hr [place] NT-Pro-B Natriuret Pep 190 H Total Protein Albumin Globulin Triglycerides Cholesterol LDL Cholesterol, C alc Total VLDL Cholest gelacio HDL Cholesterol Cholesterol/HDL Ra linda TSH Free T4 Free T3 Urine Color Urine Appearance Urine pH Ur Specific Gravit y Urine Protein Urine Glucose (UA) Urine Ketones Urine Blood Urine Nitrate Urine Bilirubin Urine Urobilinogen Ur Leukocyte Gissel ase Urine RBC Urine WBC Ur Squamous Epith Cells Ur Transition Epit h Cell Ur Renal Epithelia l Cell Amorphous Sediment Urine Bacteria Urine Opiates Scre en Ur Barbiturates Sc reen Ur Phencyclidine S crn Ur Amphetamines Sc reen U Benzodiazepines Scrn Urine Cocaine Scre en U Marijuana (THC) Screen Ethyl Alcohol 06/25/20 06/25/20 06/25/20 13:09 13:09 13:09 WBC 6.3 RBC 4.49 Hgb 13.0 Hct 40.4 L MCV 90.0 MCH 29.0 MCHC 32.2 RDW 13.5 Plt Count 178 MPV 9.7 Neut % (Auto) 50.6 Lymph % (Auto) 34.5 [place] % (Auto) 11.7 Eos % (Auto) 2.2 Baso % (Auto) 0.5 Neut # (Auto) 3.19 Lymph # (Auto) 2.2 [place] # (Auto) 0.7 Eos # (Auto) 0.1 Baso # (Auto) 0.0 Nucleated RBC % (a uto) 0 Nucleated RBCs # 0.0 PT 13.20 INR 0.98 APTT 30.2 Sodium 140 Potassium 4.1 Chloride 104 Carbon Dioxide 27 Anion Gap 13.1 BUN 18 Creatinine 1.2 GFR Calculation Not Reportable Glucose 86 POC Glucose Estimat Average Gl ucose Hemoglobin A1c Calculated Osmolal ity 291 Calcium 8.6 Phosphorus Magnesium Iron TIBC % Saturation Unsat Iron Binding Total Bilirubin 1.4 H AST 14 ALT 8 Alkaline Phosphata se 74 Troponin T Baselin e Troponin T 120 Min [place] Delta Troponin T Troponin T Hi Sens 6Hr Troponin T Hi Sens 6Hr Delta NT-Pro-B Natriuret Pep Total Protein 6.4 L Albumin 3.9 Globulin 2.5 Triglycerides Cholesterol LDL Cholesterol, C alc Total VLDL Cholest gelacio HDL Cholesterol Cholesterol/HDL Ra linda TSH Free T4 Free T3 Urine Color Urine Appearance Urine pH Ur Specific Gravit y Urine Protein Urine Glucose (UA) Urine Ketones Urine Blood Urine Nitrate Urine Bilirubin Urine Urobilinogen Ur Leukocyte Gissel ase Urine RBC Urine WBC Ur Squamous Epith Cells Ur Transition Epit h Cell Ur Renal Epithelia l Cell Amorphous Sediment Urine Bacteria Urine Opiates Scre en Ur Barbiturates Sc reen Ur Phencyclidine S crn Ur Amphetamines Sc reen U Benzodiazepines Scrn Urine Cocaine Scre en U Marijuana (THC) Screen Ethyl Alcohol < 10 Addt'l Data from Hospital Stay: Laboratory Results WBC 4.6 10^3/uL (4.0- 10.0) 06/26/20 03:30 RBC 4.14 10^6/uL (4.1 -5.3) 06/26/20 03:30 Hgb 12.1 g/dL (11.7-1 6.6) 06/26/20 03:30 Hct 37.0 % (42.0-52.0 ) L 06/26/20 03:30 MCV 89.4 fL (80-94) 06/26/20 03:30 MCH 29.2 pg (28.0-34. 0) 06/26/20 03:30 MCHC 32.7 g/dL (30.0-3 6.0) 06/26/20 03:30 RDW 13.4 % (12.1-15.1 ) 06/26/20 03:30 Plt Count 157 10^3/cmm (130 -400) 06/26/20 03:30 MPV 9.8 fL (7.4-10.4) 06/26/20 03:30 Neut % (Auto) 49.4 % 06/26/20 03:30 Lymph % (Auto) 35.5 % 06/26/20 03:30 [place] % (Auto) 11.0 % 06/26/20 03:30 Eos % (Auto) 3.3 % 06/26/20 03:30 Baso % (Auto) 0.4 % 06/26/20 03:30 Neut # (Auto) 2.25 10^3/uL (1.8 -7.7) 06/26/20 03:30 Lymph # (Auto) 1.6 10^3/uL (0.8- 4.8) 06/26/20 03:30 [place] # (Auto) 0.5 10^3/uL (0.2- 0.9) 06/26/20 03:30 Eos # (Auto) 0.2 10^3/uL (0.0- 0.8) 06/26/20 03:30 Baso # (Auto) 0.0 10^3/uL (0.0- 0.1) 06/26/20 03:30 Nucleated RBC % (a uto) 0 % 06/26/20 03:30 Nucleated RBCs # 0.0 /100WBC 06/26/20 03:30 PT 14.60 SECONDS (12 .1-14.9) 06/26/20 03:30 INR 1.11 (0.8-1.2) 06/26/20 03:30 APTT 30.2 SECONDS (23. 9-36.7) 06/25/20 13:09 Sodium 139 mmol/L (136-1 45) 06/26/20 03:30 Potassium 3.6 mmol/L (3.5-5 .1) 06/26/20 03:30 Chloride 105 mmol/L (98-10 7) 06/26/20 03:30 Carbon Dioxide 28 mmol/L (22-29) 06/26/20 03:30 Anion Gap 9.6 (5-19) 06/26/20 03:30 BUN 16 mg/dL (8-23) 06/26/20 03:30 Creatinine 1.0 mg/dL (0.7-1. 2) 06/26/20 03:30 GFR Calculation Not Reportable 06/26/20 03:30 Glucose 130 mg/dL (65-115 ) H 06/26/20 03:30 POC Glucose 116 mg/dL (70-110 ) H 06/25/20 16:14 Estimat Average Gl ucose 105 06/26/20 03:30 Hemoglobin A1c 5.3 % (4.0-6.0) 06/26/20 03:30 Calculated Osmolal ity 291 mOsm/kg (285- 295) 06/26/20 03:30 Calcium 8.4 mg/dL (8.5-10 .5) L 06/26/20 03:30 Phosphorus 3.7 mg/dL (2.5-4. 5) 06/26/20 03:30 Magnesium 2.1 mg/dL (1.7-2. 3) 06/26/20 03:30 Iron 48 ug/dL (59-158) L 06/25/20 19:53 TIBC 308 mcg/dl 06/25/20 19:53 % Saturation 15.5 % (20-50) L 06/25/20 19:53 Unsat Iron Binding 260 ug/dL (112-34 7) 06/25/20 19:53 Total Bilirubin 1.3 mg/dL (0.15-1 .2) H 06/26/20 03:30 AST 12 U/L (0-40) 06/26/20 03:30 ALT 6 U/L (0-41) 06/26/20 03:30 Alkaline Phosphata se 57 IU/L (40-130) 06/26/20 03:30 Troponin T Baselin e 9 ng/L (0-15) 06/25/20 13:09 Troponin T 120 Min [place] 10.10 ng/L (0-15) 06/25/20 15:18 Delta Troponin T 1.10 ABS# (0-10) 06/25/20 15:18 Troponin T Hi Sens 6Hr 8.64 ng/L (0-15) 06/25/20 19:53 Troponin T Hi Sens 6Hr Delta -0.36 ng/L (0-12) L 06/25/20 19:53 NT-Pro-B Natriuret Pep 176 pg/mL (0-125) H 06/25/20 19:53 Total Protein 6.0 g/dL (6.6-8.7 ) L 06/26/20 03:30 Albumin 3.1 g/dL (3.5-5.2 ) L 06/26/20 03:30 Globulin 2.9 g/dL (1.3-4.6 ) 06/26/20 03:30 Triglycerides 112 mg/dL (0-150) 06/26/20 03:30 Cholesterol 147 mg/dL (0-200) 06/26/20 03:30 LDL Cholesterol, C alc 90 mg/dL (50-129) 06/26/20 03:30 Total VLDL Cholest gelacio 22 mg/dL (0-30) 06/26/20 03:30 HDL Cholesterol 35 mg/dL (60-100) L 06/26/20 03:30 Cholesterol/HDL Ra linda 4.20 mg/dL (1.0-5 .00) 06/26/20 03:30 TSH 9.78 uIU/mL (0.27 -4.20) H 06/25/20 19:53 Urine Color Yellow (Yellow) 06/25/20 14:03 Urine Appearance Clear (CLEAR) 06/25/20 14:03 Urine pH 6.5 (5-7) 06/25/20 14:03 Ur Specific Gravit y 1.010 (1.005-1.0 30) 06/25/20 14:03 Urine Protein Trace (Negative) 06/25/20 14:03 Urine Glucose (UA) Norm (Normal) 06/25/20 14:03 Urine Ketones Negative (Negati ve) 06/25/20 14:03 Urine Blood Neg (Negative) 06/25/20 14:03 Urine Nitrate Negative (Negati ve) 06/25/20 14:03 Urine Bilirubin Neg (Negative) 06/25/20 14:03 Urine Urobilinogen Norm mg/dL (Negat kelsey) 06/25/20 14:03 Ur Leukocyte Gissel ase Negative (Negati ve) 06/25/20 14:03 Urine RBC 0-4 /hpf (0-2) H 06/25/20 14:03 Urine WBC None /hpf (0-5) 06/25/20 14:03 Ur Squamous Epith Cells None /hpf (0-5) 06/25/20 14:03 Ur Transition Epit h Cell None /hpf 06/25/20 14:03 Ur Renal Epithelia l Cell N /hpf 06/25/20 14:03 Amorphous Sediment Not Reportable 06/25/20 14:03 Urine Bacteria Trace /hpf (NONE) 06/25/20 14:03 Urine Opiates Scre en Negative ng/mL (N egative) 06/25/20 14:03 Ur Barbiturates Sc reen Negative ng/mL (N egative) 06/25/20 14:03 Ur Phencyclidine S crn Negative ng/mL (N egative) 06/25/20 14:03 Ur Amphetamines Sc reen Negative ng/mL (N egative) 06/25/20 14:03 U Benzodiazepines Scrn Negative ng/mL (N egative) 06/25/20 14:03 Urine Cocaine Scre en Negative ng/mL (N egative) 06/25/20 14:03 U Marijuana (THC) Screen Negative ng/mL (N egative) 06/25/20 14:03 Ethyl Alcohol < 10 mg/dL (0-10) 06/25/20 13:09 Impressions Chest X-Ray 06/25/20 13:02 IMPRESSION: There are no acute concerning abnormalities. Head CT 06/25/20 13:02 IMPRESSION: 1. No evidence of intracranial hemorrhage or mass effect. 2. Mild small vessel changes. Mild parenchymal volume loss. 3. No acute intracranial findings. Notified Srini Foreman MD at 06/25/2020 1:39 PM. Head/Neck CTA 06/25/20 13:02 IMPRESSION: 1. Prior postoperative changes bilateral carotid endarterectomies. Mild stenosis right proximal ICA measuring less than 50%. 2. No significant left ICA stenosis. Mild stenosis distal left common carotid artery is unchanged. 3. Left vertebral artery origin stent is new from previous. Both vertebral arteries are patent to the basilar junction. 4. Mild intracranial cavernous carotid calcification. No flow-limiting intracranial stenosis. 5. Hypoplastic right A1 segment. 6. Chronic lacunar infarct right caudate. Notified Sriin Foreman MD at 06/25/2020 1:53 PM. Head MRI 06/25/20 14:19 IMPRESSION: 1. No acute findings. 2. Limited evaluation for infarction or ischemia without diffusion weighted images. These images have been requested. An addendum to this report will be issued when they become available. Vitals: Last Vital Signs Temp 98.0 F 06/26/20 07:14 Pulse 85 06/26/20 08:26 Resp 18 06/26/20 08:26 BP 149/68 06/26/20 07:14 Pulse Ox 95 06/26/20 08:26 Discharge Plan Discharge Patient Disposition: Home Condition: Stable Prescriptions: New atorvastatin 40 mg Tablet 20 mg PO BEDTIME Qty: 30 RF: 0 carvedilol 6.25 mg Tablet 6.25 mg PO BID@0900,2100 Qty: 60 RF: 0 ferrous gluconate 324 mg (37.5 mg iron) Tablet 324 mg PO BIDWM Qty: 60 RF: 0 Continued tizanidine 4 mg capsule 4 mg PO Q8H PRN (Reason: Muscle Pain) RF: 0 buspirone 10 mg tablet 10 mg PO BID RF: 0 Eliquis 5 mg tablet 5 mg PO BID RF: 0 tamsulosin 0.4 mg capsule 0.4 mg PO DAILY RF: 0 hydrocodone-acetaminophen 5-325 mg tablet 1 tab PO Q6H PRN (Reason: pain) RF: 0 furosemide 20 mg Tablet 20 mg PO DAILY RF: 0 escitalopram oxalate [Lexapro] 10 mg Tablet 10 mg PO DAILY RF: 0 aspirin [Aspir-81] 81 mg Tablet,Delayed Release (Dr/Ec) 81 mg PO DAILY RF: 0 levothyroxine 125 mcg Tablet 125 mcg PO DAILY RF: 0 gabapentin 300 mg Capsule 300 mg PO BEDTIME RF: 0 Discharge Orders: Discharge Order (Routine); Ordered 06/26/20 Ordered By: Conor Nieto Referrals: Liz Choe MD [Physician] - 2 weeks (YOU HAVE A FOLLOW UP APPOINTMENT WITH DR DUMONT ON July AT 1100 AM. IF YOU HAVE ANY QUESTIONS OR NEED TO RESHEDULE PLEASE CALL [phone]) Antony Isaacs M.D [Physician] - 2 weeks ([facility] WILL CALL YOU TO SET UP A FOLLOW UP APPOINTMENT. IF YOU DO NOT HEAR FROM THEM BY MONDAY PLEASE CALL [phone].) Nelida Spence DO [Primary Care Provider] - 4-7 days (YOU HAVE A FOLLOW UP APPOINTMENT WITH DR. SPENCE ON June AT 115 PM. IF YOU HAVE ANY QUESTIONS OR NEED TO RESCHEDULE PLEASE CALL [phone]) Discharge Diet: Cardiac and Low Salt Discharge Activity: Resume usual activity Patient Instructions: Atorvastatin (By mouth), Carvedilol (By mouth), Ascorbic Acid/Cyanocobalamin/Ferrous Fumarate (By mouth), Hypertension, Transient Ischemic Attack (DC), Self Care Measures After a Stroke (DC), Fall Prevention (DC), Opioid Safety Activity Restrictions/Additional Instructions: Please follow-up with cardiology within 2 weeks. Carvedilol has been added to your medication list for high blood pressure. Please monitor blood pressure for next 2 weeks and follow-up with your primary care provider for further titration of antihypertensive if needed. Please follow-up with Dr. Choe from neurology in 2 weeks. Discharge Attestations Time Spent in Discharge Care*: greater than 30 min Specific Discharge Activities: educating patient, educating and/or supporting family/caregiver, discussing with pcp/other providers, discussing with [employer]/social workers/dc planners, documenting/other paperwork and evaluating patient/reviewing data Status at Discharge: Cognitive status at discharge: cognitively intact , Behavioral status at discharge: cooperative , Functional status at discharge: independent ambulation Overall status at discharge: patient is back to baseline Quality Metrics Clinical Quality Measures During this hospital stay, did patient experience: None Coding Level of Care Code Acute Chg FW DC note Diagnoses Acute CVA (cerebrovascular accident) I63.9 TIA (transient ischemic attack) G45.9 Bilateral carotid artery disease I77.9 Postop carotid endarterectomy surveillance, encounter for Z48.812 Hypertension I10 Hypothyroidism E03.9
[2020-06-26 12:37] LABS: Free T4 Free Thyroxine 0.89 ng/dL (0.82-1.77); T3 Free 3.2 PG/ML (2.0-4.4)
--- NOTE | 2020-06-26 15:30 | PC.NURSE ---
Discharge to home Informed pt to follow-up with his pcp, neurologist and news operations manager as scheduled. Educated pt on his new meds actions, dosing, timing and possible side effects. Educated pt on stroke after care measures, fall prevention and checking blood pressure. Discharge packet provided to pt.
--- NOTE | 2020-06-26 17:32 | USCV_ITS ---
Robert Brooks Age: 70 Gender: M : 1950 Exam Date: 06/26/2020 05:42 Ordering Phys: Conor Nieto MD Technologist: Binta Loyola [place] [facility] [place]: PULM HTN AND DD BP: 128 / 63 HR: 69 Rhythm: Sinus Technical Quality: Adequate MEASUREMENTS (Male / Female) Normal Values 2D ECHO LV Diastolic Diameter PLAX 3.5 cm 4.2 - 5.9 / 3.9 - 5.3 cm LV Systolic Diameter PLAX 2.5 cm LV Chamber Size 4.0 cm IVS Diastolic Thickness 1.3 cm 0.6 - 1.0 / 0.6 - 0.9 cm IVS Systolic Thickness 1.6 cm LVPW Diastolic Thickness 1.4 cm 0.6 - 1.0 / 0.6 - 0.9 cm LVPW Systolic Thickness 1.3 cm RV Chamber Size 2.7 cm LVOT Diameter 2.1 cm LV Ejection Fraction 2D Teich 55.0 % LV Ejection Fraction MOD 2C 66.2 % LV Ejection Fraction 2C AL 65.0 % LA Diameter 3.3 cm LA Width 3.9 cm LA Height 4.3 cm RA Width 3.4 cm RA Height 3.4 cm Aorta at Sinotubular Diameter 2.8 cm M-MODE LV Diastolic Diameter MM 3.7 cm 4.2 - 5.9 / 3.9 - 5.3 cm LV Systolic Diameter MM 2.0 cm LV Ejection Fraction MM Teich 78.8 % IVS Diastolic Thickness MM 1.1 cm 0.6 - 1.0 / 0.6 - 0.9 cm IVS Systolic Thickness MM 1.6 cm LVPW Diastolic Thickness MM 1.3 cm 0.6 - 1.0 / 0.6 - 0.9 cm LVPW Systolic Thickness MM 1.6 cm Aortic Annulus Diameter 2.9 cm LA Ao Ratio MM 1.4 MV E Point Septal Separation 0.7 cm DOPPLER AV Peak Velocity 143.0 cm/s LVOT Peak Velocity 111.0 cm/s AV Area Cont Eq vti 2.9 cm squared AV Area Cont Eq pk 2.6 cm squared MV Area PHT 3.5 cm squared Mitral E to A Ratio 1.1 MV E' Velocity 54.0 cm/s Mitral E to MV E' Ratio 14.2 Mitral E to LV E' Lateral Ratio 14.0 Mitral E to LV E' Septal Ratio 14.6 TR Peak Velocity 176.0 cm/s TR Peak Gradient 12.4 mmHg TV Peak E Velocity 105.0 cm/s Right Atrial Pressure 3.0 mmHg Pulmonary Artery Systolic Pressu 15.4 mmHg PV Peak Velocity 70.0 cm/s RV Acceleration Time 0.1 s RV Ejection Time 0.3 s RV AcT/ET 0.4 FINDINGS Left Ventricle Normal left ventricular size. LV systolic function is normal with EF of 60-65%. No regional wall miton abnoralities. Grade II diastolic dysfunction with elevated filling pressures Right Ventricle The right ventricle is normal in size and function. Right Atrium The right atrium is normal in size. Left Atrium The left atrium is normal in size. Mitral Valve Structurally normal mitral valve without significant stenosis or prolapse. There is no mitral regurgitation. Aortic Valve Structurally normal aortic valve without significant sclerosis or stenosis. There is no aortic regurgitation. Tricuspid Valve Structurally normal tricuspid valve without significant stenosis or regurgitation. Insufficient TR jet to calculate RVSP Pulmonic Valve Structurally normal pulmonic valve without significant stenosis. There is no pulmonic regurgitation. Pericardium Normal pericardium without effusion. Aorta Normal ascending aorta dimension. CONCLUSIONS LV systolic function is normal with EF of 60-65% Grade II diastolic dysfunction No significant valvular heart disease Compared to prior echocardiogram from 07/03/2018, no significnat changes are noted Antony Isaacs MD (Electronically Signed) Final Date: 26 Jun 2020 14:30 S
== END 2020-06-26 15:25 | disposition home or self-care (01) ==
LOC: ER 13:39 → CSU 14:34
PROVIDERS: Admitting Provider Student in an Organized Health Care Education/Training Program; Emergency Provider Family Medicine; PCP Family Medicine; Visit Provider Student in an Organized Health Care Education/Training Program
DX: I63.9 Cerebral infarction, unspecified (principal); G45.9 Transient cerebral ischemic attack, unspecified; I77.9 Disorder of arteries and arterioles, unspecified; Z48.812 Encounter for surgical aftercare following surgery on the circulatory system; E03.9 Hypothyroidism, unspecified; I25.10 Atherosclerotic heart disease of native coronary artery without angina pectoris; Z86.73 Personal history of transient ischemic attack (TIA), and cerebral infarction without residual deficits; I11.0 Hypertensive heart disease with heart failure; I50.9 Heart failure, unspecified; E78.5 Hyperlipidemia, unspecified; Z82.49 Family history of ischemic heart disease and other diseases of the circulatory system; Z83.3 Family history of diabetes mellitus; Z87.891 Personal history of nicotine dependence; Z86.718 Personal history of other venous thrombosis and embolism
CPT/HCPCS: 36415; 36416; 70450; 70496; 70498; 70551; 71045; 80053; 80061; 80306; 80307; 81001; 82962; 83036; 83540; 83550; 83735; 83880; 84100; 84439; 84443; 84481; 84484; 85025; 85610; 85730; 93005; 93306; 93970; 94664; 96374; 99285; G0378; J0360; J1630; Q9967